=== PATIENT | female | born 1935 | race American Indian/Alaskan Native ===

== ENCOUNTER → 2016-09-20 | Outpatient (CLI) | payer MEDICARE, OTHER, BC | LOC: MW.CHOBGYN 08:00 | PROVIDERS: ATTEND Obstetrics & Gynecology | DX: N81.89 Other female genital prolapse (principal) | CPT/HCPCS: 99204 ==

== ENCOUNTER 2016-11-04 09:04 | Inpatient (IN) | payer MEDICARE, BC, OTHER ==
--- NOTE | 2016-11-04 09:18 | EDM.PDOC ---
ED HPI GENERAL MEDICAL PROBLEM - General Chief Complaint: General Stated Complaint: DIZZY Time Seen by Provider: 11/04/16 09:06 Source of Information: Reports: Patient History Limitations: Reports: No Limitations - History of Present Illness INITIAL COMMENTS - FREE TEXT/NARRATIVE: History of present illness: []Patient woke up this morning with dizziness described as spinning and then felt like she had the urge to go to the bathroom she is unusual in that she is usually constipated. She had a large bloody stool that turned the toilet water red. She has not had another episode since. She does feel weak and nauseous. Patient states she initially had some abdominal pain but that has resolved. She has heart disease is currently not taking any blood thinners besides baby aspirin a day. Review of systems: As per history of present illness and below otherwise all systems reviewed and negative. Past medical history: As per history of present illness and as reviewed below otherwise noncontributory. Surgical history: As per history of present illness and as reviewed below otherwise noncontributory. Social history: No reported history of drug or alcohol abuse. Family history: As per history of present illness and as reviewed below otherwise noncontributory. Physical exam: General: Well developed, well nourished in NAD HEENT: Atraumatic, normocephalic, pupils reactive, negative for conjunctival pallor or scleral icterus, mucous membranes moist, throat clear, neck supple, nontender, trachea midline. Lungs: Clear to auscultation, breath sounds equal bilaterally, chest nontender. Heart: S1S2, regular, negative for clicks, rubs, or JVD. Abdomen: Soft, nondistended, nontender. Negative for masses or hepatosplenomegaly. Negative for costovertebral tenderness. Pelvis: Stable nontender. Genitourinary: Deferred. Rectal: Gross maroon blood on fingertip without active bleeding Extremities: Atraumatic, negative for cords or calf pain. Neurovascular unremarkable. Neuro: Awake, alert, oriented. Cranial nerves II through XII unremarkable. Cerebellum unremarkable. Motor and sensory unremarkable throughout. Exam nonfocal. Diagnostics: []Lab work done, chest x-ray and CTA abdomen ordered Therapeutics: []IV hydration and Protonix given Impression: []GI bleed Plan: []Admit to Dr. Leiva, hospitalist and Dr. Solis from general surgery consult on this patient in the ED Definitive disposition and diagnosis as appropriate pending reevaluation and review of above. no pain Pain Score (Numeric/FACES): 0 - Related Data Allergies Allergy/AdvReac Type Severity Reaction Status Date / Time codeine Allergy Other Verified 11/04/16 09:11 penicillin V Allergy Other Verified 11/04/16 09:11 clonidine Allergy Other Uncoded 11/04/16 09:11 Home Meds: Home Meds Furosemide [Lasix] 40 mg PO DAILY 05/10/14 [History] Verapamil HCl [Verapamil ER] 180 mg PO DAILY 05/10/14 [History] traMADol HCl [Tramadol HCl] 1 - 2 tab PO Q4HR PRN 05/10/14 [History] Cyclobenzaprine [Flexeril] 5 mg PO Q8H PRN 02/01/16 [History] Isosorbide Mononitrate [Imdur] 60 mg PO DAILY #30 tab.er 02/01/16 [Rx] Lisinopril 20 mg PO DAILY 02/01/16 [History] Gabapentin [Neurontin] 100 mg PO DAILY 06/08/16 [History] Carvedilol 3.125 mg PO BID 11/04/16 [History] Docusate Sodium 100 mg PO BID 11/04/16 [History] Loraine-3 Fatty Acids [Fish Oil] 1,000 mg PO DAILY 11/04/16 [History] Pantoprazole [ProTONIX] 40 mg PO ACBREAKFAST 11/04/16 [History] oxyCODONE HCl [Oxycodone HCl] 20 mg PO BID 11/04/16 [History] Past Medical History - Past Health History Medical/Surgical History: Denies Medical/Surgical History HEENT History: Reports: Cataract, Impaired Vision Cardiovascular History: Reports: High Cholesterol, Hypertension Respiratory History: Reports: Asthma, Bronchitis, Recurrent, TB Gastrointestinal History: Reports: Cholelithiasis, GERD Genitourinary History: Reports: Chronic Renal Insuffiency Other Genitourinary History: "kidney problems" 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/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 History: Hysterectomy Musculoskeletal History: Reports: Fracture, Other (See Below) Other Musculoskeletal History: neck and lumbar fracture, right broken wrist Endocrine/Metabolic History: Reports: Other (See Below) Other Endocrine/Metabolic History: borderline diabetes, thyroidectomy Hematologic History: Reports: Blood Transfusion(s) Other Hematologic History: blood transfusion x 1 - Infectious Disease History Infectious Disease History: Reports: Chicken Pox - Past Surgical History HEENT Surgical History: Reports: Cataract Surgery Neurological Surgical History: Reports: Lumbar Spine Musculoskeletal Surgical History: Reports: Other (See Below) Social & Family History - Family History Family Medical History: Noncontributory - Tobacco Use Smoking Status *Q: Never Smoker Second Hand Smoke Exposure: No - Caffeine Use Caffeine Use: Reports: Coffee Caffeine Use Comment: 1cup/day - Alcohol Use Days Per Week of Alcohol Use: 0 - Recreational Drug Use Recreational Drug Use: No ED ROS GENERAL - Review of Systems Review Of Systems: See Below (See history of present illness) ED EXAM, GENERAL - Physical Exam Exam: See Below (See history of present illness) Course - Vital Signs Last Recorded V/S: Last Vital Signs Temp 36.3 C 11/04/16 09:11 Pulse 88 11/04/16 09:11 Resp 10 L 11/04/16 11:30 BP 98/54 L 11/04/16 11:30 Pulse Ox 94 L 11/04/16 11:30 - Orders/Labs/Meds Orders: Active Orders 24 hr Category Date Time Status Cardiac Monitoring [RC] . DIRECTED Care 11/04/16 09:14 Active EKG Documentation Completion [RC] STAT Care 11/04/16 09:14 Active Fecal Occult Blood Collection [RC] ASDIRECTED Care 11/04/16 09:57 Active Notify Provider Consults [RC] ASDIRECTED Care 11/04/16 12:32 Active Consult to Physician [CONS] Stat Cons 11/04/16 12:31 Active Abdomen Pelvis wo Cont [CT] Stat Exams 11/04/16 11:55 Taken Chest 1V Frontal [CR] Stat Exams 11/04/16 09:14 Taken Saline Lock Insert [OM.PC] Stat Oth 11/04/16 09:14 Ordered Labs: Laboratory Tests 11/04/16 11/04/16 11/04/16 Range/Units 09:10 09:20 09:20 WBC 9.42 (4.0-11.0) K/uL RBC 3.33 L (4.30-5.90) M/uL Hgb 9.8 L (12.0-16.0) g/dL Hct 29.5 L (36.0-46.0) % MCV 88.6 (80.0-98.0) fL MCH 29.4 (27.0-32.0) pg MCHC 33.2 (31.0-37.0) g/dL RDW Std Deviation 44.7 (28.0-62.0) fl RDW Coeff of Rad 14 (11.0-15.0) % Plt Count 290 (150-400) K/uL MPV 9.30 (7.40-12.00) fL Neut % (Auto) 76.2 (48.0-80.0) % Lymph % (Auto) 16.5 (16.0-40.0) % Brooks % (Auto) 5.8 (0.0-15.0) % Eos % (Auto) 1.0 (0.0-7.0) % Baso % (Auto) 0.5 (0.0-1.5) % Neut # (Auto) 7.2 H (1.4-5.7) K/uL Lymph # (Auto) 1.6 (0.6-2.4) K/uL Brooks # (Auto) 0.6 (0.0-0.8) K/uL Eos # (Auto) 0.1 (0.0-0.7) K/uL Baso # (Auto) 0.1 (0.0-0.1) K/uL Nucleated RBC % 0.0 /100WBC Nucleated RBCs # 0 K/uL Sodium 136 (136-146) mmol/L Potassium 4.5 (3.5-5.1) mmol/L Chloride 104 (98-110) mmol/L Carbon Dioxide 23 (21-31) mmol/L BUN 37 H (6.0-23.0) mg/dL Creatinine 1.6 H (0.6-1.5) mg/dL Est Cr Clr Drug Dosing 21.51 mL/min Estimated GFR (MDRD) 31.1 ml/min Glucose 145 H (60-110) mg/dL Calcium 8.4 L (8.8-10.8) mg/dL Total Bilirubin 0.4 (0.1-1.5) mg/dL AST 12 (5-40) IU/L ALT 8 (8-54) IU/L Alkaline Phosphatase 60 (40-150) Troponin I (0.0-0.29) NG/ML Total Protein 6.8 (6.0-8.0) g/dL Albumin 3.3 L (3.4-4.8) g/dL Globulin 3.5 (2.0-3.5) g/dL Albumin/Globulin Ratio 0.9 L (1.3-2.8) Blood Type A POSITIVE Antibody Screen NEGATIVE 11/04/16 Range/Units 09:20 WBC (4.0-11.0) K/uL RBC (4.30-5.90) M/uL Hgb (12.0-16.0) g/dL Hct (36.0-46.0) % MCV (80.0-98.0) fL MCH (27.0-32.0) pg MCHC (31.0-37.0) g/dL RDW Std Deviation (28.0-62.0) fl RDW Coeff of Rad (11.0-15.0) % Plt Count (150-400) K/uL MPV (7.40-12.00) fL Neut % (Auto) (48.0-80.0) % Lymph % (Auto) (16.0-40.0) % Brooks % (Auto) (0.0-15.0) % Eos % (Auto) (0.0-7.0) % Baso % (Auto) (0.0-1.5) % Neut # (Auto) (1.4-5.7) K/uL Lymph # (Auto) (0.6-2.4) K/uL Brooks # (Auto) (0.0-0.8) K/uL Eos # (Auto) (0.0-0.7) K/uL Baso # (Auto) (0.0-0.1) K/uL Nucleated RBC % /100WBC Nucleated RBCs # K/uL Sodium (136-146) mmol/L Potassium (3.5-5.1) mmol/L Chloride (98-110) mmol/L Carbon Dioxide (21-31) mmol/L BUN (6.0-23.0) mg/dL Creatinine (0.6-1.5) mg/dL Est Cr Clr Drug Dosing mL/min Estimated GFR (MDRD) ml/min Glucose (60-110) mg/dL Calcium (8.8-10.8) mg/dL Total Bilirubin (0.1-1.5) mg/dL AST (5-40) IU/L ALT (8-54) IU/L Alkaline Phosphatase (40-150) Troponin I < 0.10 (0.0-0.29) NG/ML Total Protein (6.0-8.0) g/dL Albumin (3.4-4.8) g/dL Globulin (2.0-3.5) g/dL Albumin/Globulin Ratio (1.3-2.8) Blood Type Antibody Screen Meds: Medications Discontinued Medications Generic Name Dose Route Start Last Admin Trade Name Freq PRN Reason Stop Dose Admin Sodium Chloride 1,000 mls @ 999 mls/hr 11/04/16 10:22 11/04/16 10:43 Normal Saline IV 11/04/16 11:22 999 mls/hr .Bolus ONE Administration Pantoprazole Sodium 80 mg 11/04/16 10:58 11/04/16 11:31 Protonix Iv IVPUSH 11/04/16 10:59 80 mg .BOLUS ONE Administration Departure - Departure Time of Disposition: 12:51 Disposition: Refer to Observation Condition: good Clinical Impression: GI bleed Qualifiers: GI bleed type/associated pathology: unspecified gastrointestinal hemorrhage type Qualified Code(s): K92.2 - Gastrointestinal hemorrhage, unspecified - Discharge Information - My Orders Last 24 Hours: My Active Orders 11/04/16 09:14 Cardiac Monitoring [RC] . DIRECTED EKG Documentation Completion [RC] STAT Chest 1V Frontal [CR] Stat Saline Lock Insert [OM.PC] Stat 11/04/16 09:57 Fecal Occult Blood Collection [RC] ASDIRECTED 11/04/16 11:55 Abdomen Pelvis wo Cont [CT] Stat 11/04/16 12:31 Consult to Physician [CONS] Stat 11/04/16 12:32 Notify Provider Consults [RC] ASDIRECTED - Assessment/Plan Last 24 Hours: My Active Orders 11/04/16 09:14 Cardiac Monitoring [RC] . DIRECTED EKG Documentation Completion [RC] STAT Chest 1V Frontal [CR] Stat Saline Lock Insert [OM.PC] Stat 11/04/16 09:57 Fecal Occult Blood Collection [RC] ASDIRECTED 11/04/16 11:55 Abdomen Pelvis wo Cont [CT] Stat 11/04/16 12:31 Consult to Physician [CONS] Stat 11/04/16 12:32 Notify Provider Consults [RC] ASDIRECTED
[2016-11-04] MEDS ORDERED: Sodium Chloride 0.9% 1,000 ML IV ONE (10:22)
[2016-11-04] MEDS ORDERED: Pantoprazole 40 MG Vial IVPUSH ONE (10:58)
--- NOTE | 2016-11-04 13:05 | PCM.CONS ---
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 She had a black tarry foul smelling stool this morning that "filled the toilet with blood". It has never happened before. This was associated with nausea, weakness, and feeling dizzy. She has not had another BM since them. She complains of long standing heartburn that she treats with dietary changes and tums. She normally takes stool softners because she is constipated. She does not know her family history but remebers that her father of some type of cancer. She cannot remember if she has ever had a colonoscopy or EGD. no pain Pain Score (Numeric/FACES): 0 - Related Data Allergies/Adverse Reactions: Allergies Allergy/AdvReac Type Severity Reaction Status Date / Time codeine Allergy Other Verified 11/04/16 09:11 penicillin V Allergy Other Verified 11/04/16 09:11 clonidine Allergy Other Uncoded 11/04/16 09:11 Home Medications: Home Meds Furosemide [Lasix] 40 mg PO DAILY 05/10/14 [History] Verapamil HCl [Verapamil ER] 180 mg PO DAILY 05/10/14 [History] traMADol HCl [Tramadol HCl] 1 - 2 tab PO Q4HR PRN 05/10/14 [History] Cyclobenzaprine [Flexeril] 5 mg PO Q8H PRN 02/01/16 [History] Isosorbide Mononitrate [Imdur] 60 mg PO DAILY #30 tab.er 02/01/16 [Rx] Lisinopril 20 mg PO DAILY 02/01/16 [History] Gabapentin [Neurontin] 100 mg PO DAILY 06/08/16 [History] Carvedilol 3.125 mg PO BID 11/04/16 [History] Docusate Sodium 100 mg PO BID 11/04/16 [History] Sinclair-3 Fatty Acids [Fish Oil] 1,000 mg PO DAILY 11/04/16 [History] Pantoprazole [ProTONIX] 40 mg PO ACBREAKFAST 11/04/16 [History] oxyCODONE HCl [Oxycodone HCl] 20 mg PO BID 11/04/16 [History] Past Medical History - Past Health History Medical/Surgical History: Denies Medical/Surgical History HEENT History: Reports: Cataract, Impaired Vision Cardiovascular History: Reports: High Cholesterol, Hypertension Respiratory History: Reports: Asthma, Bronchitis, Recurrent, TB Gastrointestinal History: Reports: Cholelithiasis, GERD Genitourinary History: Reports: Chronic Renal Insuffiency Other Genitourinary History: "kidney problems" 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 OB/BYN History: Hysterectomy Musculoskeletal History: Reports: Fracture, Other (See Below) Other Musculoskeletal History: neck and lumbar fracture, right broken wrist Neurological History: Reports: Headaches, Chronic Psychiatric History: Reports: None Endocrine/Metabolic History: Reports: Other (See Below) Other Endocrine/Metabolic History: borderline diabetes, thyroidectomy Hematologic History: Reports: Blood Transfusion(s) Other Hematologic History: blood transfusion x 1 Oncologic (Cancer) History: Reports: None - Infectious Disease History Infectious Disease History: Reports: Chicken Pox - Past Surgical History HEENT Surgical History: Reports: Cataract Surgery GI Surgical History: Reports: Cholecystectomy Neurological Surgical History: Reports: Lumbar Spine Musculoskeletal Surgical History: Reports: Other (See Below) Social & Family History - Family History Family Medical History: Noncontributory - Tobacco Use Smoking Status *Q: Never Smoker Second Hand Smoke Exposure: No - Caffeine Use Caffeine Use: Reports: Coffee Caffeine Use Comment: 1cup/day - Alcohol Use Days Per Week of Alcohol Use: 0 - Recreational Drug Use Recreational Drug Use: No H&P Review of Systems - Review of Systems: Review Of Systems: See Below General: Reports: Malaise. Denies: Fever, Chills, Weight Loss, Weight Gain HEENT: Reports: No Symptoms Pulmonary: Reports: No Symptoms Cardiovascular: Reports: No Symptoms Gastrointestinal: Reports: Black Stool, Bloody Stool, Melena Genitourinary: Reports: No Symptoms Musculoskeletal: Reports: Back Pain Skin: Reports: No Symptoms Psychiatric: Reports: No Symptoms Neurological: Reports: No Symptoms Exam - Exam Exam: See Below - Vital Signs Vital Signs: Last Vital Signs Temp 36.3 C 11/04/16 09:11 Pulse 63 11/04/16 12:45 Resp 14 11/04/16 12:45 BP 102/51 L 11/04/16 12:45 Pulse Ox 96 11/04/16 12:45 Weight: 60.328 kg - Exam General: Alert, Oriented HEENT: Conjunctiva Clear, Nares Patent, Normal Nasal Septum, Posterior Pharynx Clear, Pupils Equal, Pupils Reactive Neck: Supple Lungs: Clear to Auscultation, Normal Respiratory Effort Cardiovascular: Regular Rate, Regular Rhythm Abdomen: Normal Bowel Sounds, Soft. No: Distention, Guarding, Rigidity, Rebound , Tenderness Rectal (Female) Exam: Normal Rectal Tone, Black Stool, Heme + Stool Back Exam: Normal Inspection Extremities: Normal Inspection, Normal Pulses Skin: Warm, Dry, Intact Neuro Extensive - Mental Status: Alert, Oriented x3, Normal Mood/Affect, Normal Cognition Psychiatric: Alert, Normal Affect, Normal Mood - Patient Data Result Diagrams: 11/04/16 09:20 11/04/16 09:20 Consult PN Assessment/Plan Procedures: Procedures APPLY FOREARM SPLINT (05/14/14) ASSAY OF LACTIC ACID (06/08/16) ASSAY OF LIPASE (07/14/16) ASSAY OF NATRIURETIC PEPTIDE (06/08/16) ASSAY OF TROPONIN QUANT (07/14/16) BLOOD CULTURE FOR BACTERIA (06/08/16) CHEST X-RAY 1 VIEW FRONTAL (07/14/16) CHEST X-RAY 2VW FRONTAL&LATL (06/08/16) COMPLETE CBC W/AUTO DIFF WBC (07/14/16) COMPREHEN METABOLIC PANEL (07/14/16) CREATINE MB FRACTION (07/14/16) CT ABD & PELVIS W/O CONTRAST (07/14/16) CT CHEST SPINE W/O DYE (06/08/16) CT LUMBAR SPINE W/O DYE (06/08/16) DESTROY L/S FACET JNT ADDL (12/10/14) DESTROY LUMB/SAC FACET JNT (12/10/14) ELECTROCARDIOGRAM TRACING (07/14/16) EMERGENCY DEPT VISIT (07/14/16) EMERGENCY DEPT VISIT (03/18/16) EMERGENCY DEPT VISIT (02/01/16) EMERGENCY DEPT VISIT (05/10/14) EMERGENCY DEPT VISIT (05/10/14) GLYCOSYLATED HEMOGLOBIN TEST (02/01/16) HYDRATE IV INFUSION ADD-ON (06/08/16) INJ PARAVERT F JNT L/S 1 LEV (08/04/14) INJ PARAVERT F JNT L/S 2 LEV (08/04/14) INJECT SPINE LUMBAR/SACRAL (05/06/15) LIPID PANEL (02/01/16) METABOLIC PANEL TOTAL CA (02/01/16) MRI CHEST SPINE W/O DYE (02/18/15) MRI LUMBAR SPINE W/O DYE (02/18/15) N BLOCK OTHER PERIPHERAL (08/04/14) OFFICE/OUTPATIENT VISIT EST (09/15/15) OFFICE/OUTPATIENT VISIT EST (05/31/15) OFFICE/OUTPATIENT VISIT NEW (02/08/16) PROTHROMBIN TIME (07/14/16) ROUTINE VENIPUNCTURE (06/08/16) THER/PROPH/DIAG INJ IV PUSH (06/08/16) THER/PROPH/DIAG IV INF INIT (06/08/16) TISSUE EXAM BY PATHOLOGIST (05/18/16) TTE W/DOPPLER COMPLETE (02/25/16) URINALYSIS AUTO W/SCOPE (07/14/16) URINE CULTURE/COLONY COUNT (07/14/16) X-RAY EXAM NECK SPINE 2-3 VW (09/01/15) X-RAY EXAM OF WRIST (08/27/14) X-RAY EXAM OF WRIST (06/16/14) X-RAY EXAM OF WRIST (05/19/14) X-RAY EXAM OF WRIST (05/10/14) X-RAY EXAM THORAC SPINE 2VWS (09/01/15) (1) GI bleed SNOMED Code(s): 70665205 Code(s): K92.2 - GASTROINTESTINAL HEMORRHAGE, UNSPECIFIED Current Visit: Yes Qualifiers: GI bleed type/associated pathology: unspecified gastrointestinal hemorrhage type Qualified Code(s): K92.2 - Gastrointestinal hemorrhage, unspecified Problem List Initiated/Reviewed/Updated: Yes Plan: Patient has frankly melanic stool. The source of her GI bleed unclear at this point in time. Given her history of "severe heartburn and epigastric pain", it may be from an upper GI source (gastritis, ulcer). However, bleeding from a lower GI source cannot be ruled out either. Her hemoglobin is stable compared to her last hgb in May of this year. Given her health history and the frankly melanic stool I would watch her overnight to rule out any further bleeding. She should be made NPO, started on maintenance IVF and given IV protonix. She is not having any nausea or vomiting at this point in time so I would not place an NG. Her hgb can be checked every 12 hours as long as she is not having active melanotic diarrhea. If she develops signs of active bleeding she should have her hgb checked more regularly and I would scope her tomorrow morning. I will continue to follow the patient in house. If she has no further episodes of bleeding I will hold off on performing an inpatient scope. Please call with any questions or concerns.
[2016-11-04] MEDS: Sodium Chloride 0.9% 1,000 ML IV SCH ×2 (13:10→23:29)
--- NOTE | 2016-11-04 13:50 | PCM.HP ---
H&P History of Present Illness - History of Present Illness Initial Comments - Free Text/Narative: 81 yo female with pmh of hypertenison, chornic back pain, borderline DM, and chronic kidney disease who presents with bloody stools. When she woke up this morning she felt dizzy. She had sudden urge to go to the bathroom and when she did she had dark tarry stools with red blood in stool. She deneis any nausea or vomiting. She reports epigastric abddominal pain. She has been on protonix fur suspected ulcers/dyspepsia. Sh did take her antihypertensive medications this morning. In the ED she was noted to have blood pressure in the 90s systolic. After one liter bolus her blood pressure increased to 110 systolic. no pain Pain Score (Numeric/FACES): 0 - Related Data Allergies/Adverse Reactions: Allergies Allergy/AdvReac Type Severity Reaction Status Date / Time codeine Allergy Other Verified 11/04/16 09:11 penicillin V Allergy Other Verified 11/04/16 09:11 clonidine Allergy Other Uncoded 11/04/16 09:11 Home Medications: Home Meds Verapamil HCl [Verapamil ER] 180 mg PO DAILY 05/10/14 [History] traMADol HCl [Tramadol HCl] 1 - 2 tab PO Q4HR PRN 05/10/14 [History] Cyclobenzaprine [Flexeril] 5 mg PO Q8H PRN 02/01/16 [History] Isosorbide Mononitrate [Imdur] 60 mg PO DAILY #30 tab.er 02/01/16 [Rx] Lisinopril 20 mg PO DAILY 02/01/16 [History] Gabapentin [Neurontin] 100 mg PO TID 06/08/16 [History] Carvedilol 3.125 mg PO BID 11/04/16 [History] Docusate Sodium 100 mg PO BID 11/04/16 [History] Furosemide [Lasix] 20 mg PO DAILY 11/04/16 [History] [place]-3 Fatty Acids [Fish Oil] 1,000 mg PO DAILY 11/04/16 [History] Pantoprazole [ProTONIX] 40 mg PO ACBREAKFAST 11/04/16 [History] oxyCODONE HCl [Oxycodone HCl] 20 mg PO BID 11/04/16 [History] Past Medical History - Past Health History Medical/Surgical History: Denies Medical/Surgical History HEENT History: Reports: Cataract, Impaired Vision Cardiovascular History: Reports: High Cholesterol, Hypertension Respiratory History: Reports: Asthma, Bronchitis, Recurrent, TB Gastrointestinal History: Reports: Cholelithiasis, GERD Genitourinary History: Reports: Chronic Renal Insuffiency Other Genitourinary History: "kidney problems" [employer] 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: Other OB/BYN History: Hysterectomy Musculoskeletal History: Reports: Fracture, Other (See Below) Other Musculoskeletal History: neck and lumbar fracture, right broken wrist Neurological History: Reports: Headaches, Chronic Psychiatric History: Reports: None Endocrine/Metabolic History: Reports: Other (See Below) Other Endocrine/Metabolic History: borderline diabetes, thyroidectomy Hematologic History: Reports: Blood Transfusion(s) Other Hematologic History: blood transfusion x 1 Oncologic (Cancer) History: Reports: None - Infectious Disease History Infectious Disease History: Reports: Chicken Pox - Past Surgical History HEENT Surgical History: Reports: Cataract Surgery GI Surgical History: Reports: Cholecystectomy Neurological Surgical History: Reports: Lumbar Spine Musculoskeletal Surgical History: Reports: Other (See Below) Social & Family History - Family History Family Medical History: Noncontributory HEENT: Reports: Impaired Vision Musculoskeletal: Reports: Arthritis Oncologic: Reports: Other (See Below) Other Oncologic Family History: stomach - Tobacco Use Smoking Status *Q: Never Smoker Second Hand Smoke Exposure: No - Caffeine Use Caffeine Use: Reports: Coffee Caffeine Use Comment: 1cup/day - Alcohol Use Days Per Week of Alcohol Use: 0 - Recreational Drug Use Recreational Drug Use: No H&P Review of Systems - Review of Systems: Review Of Systems: See Below General: Reports: No Symptoms HEENT: Reports: No Symptoms Pulmonary: Reports: No Symptoms Cardiovascular: Reports: No Symptoms Gastrointestinal: Reports: Abdominal Pain, Melena Genitourinary: Reports: No Symptoms Musculoskeletal: Reports: No Symptoms Skin: Reports: No Symptoms Psychiatric: Reports: No Symptoms Neurological: Reports: No Symptoms Hematologic/Lymphatic: Reports: No Symptoms Immunologic: Reports: No Symptoms Exam - Exam Exam: See Below - Vital Signs Vital Signs: Last Vital Signs Temp 36.3 C 11/04/16 09:11 Pulse 63 11/04/16 12:45 Resp 14 11/04/16 12:45 BP 102/51 L 11/04/16 12:45 Pulse Ox 96 11/04/16 12:45 Weight: 60.328 kg - Exam General: Alert, Oriented, 4 Lungs: Clear to Auscultation, Normal Respiratory Effort Cardiovascular: Regular Rate, Regular Rhythm Abdomen: Normal Bowel Sounds, Soft. No: Distention, Tenderness Extremities: 3, Normal Inspection, 10 Skin: Warm, Dry, Intact Neurological: No: Focal Deficit - Patient Data Result Diagrams: 11/05/16 02:35 11/05/16 02:35 *Q Meaningful Use (ADM) - VTE *Q VTE Criteria *Q: - Stroke *Q Stroke Criteria *Q: - AMI *Q AMI Criteria *Q: Problem List Initiated/Reviewed/Updated: Yes Orders Last 24hrs: Active Orders 24 hr Category Date Time Status Antiembolic Devices [RC] PER UNIT ROUTINE Care 11/04/16 13:32 Active Oxygen Therapy [RC] PRN Care 11/04/16 13:32 Active VTE/DVT Education [RC] PER UNIT ROUTINE Care 11/04/16 13:32 Active Vital Signs [RC] Q4H Care 11/04/16 13:32 Active BASIC METABOLIC PANEL,BMP [CHEM] AM Lab 11/05/16 05:11 Ordered CBC W/O DIFF,HEMOGRAM [HEME] Q8H Lab 11/04/16 17:00 Ordered CBC W/O DIFF,HEMOGRAM [HEME] Q8H Lab 11/05/16 01:00 Ordered CBC W/O DIFF,HEMOGRAM [HEME] Q8H Lab 11/05/16 09:00 Ordered Insulin Aspart [NovoLOG] Med 11/04/16 13:15 Active See Protocol SUBCUT Q6H Pantoprazole [ProTONIX IV] 80 mg Med 11/04/16 13:15 Active Sodium Chloride 0.9% [Normal Saline] 100 ml IV Q10H Sodium Chloride 0.9% [Normal Saline] 1,000 ml Med 11/04/16 13:15 Active IV ASDIRECTED Sequential Compression Device [OM.PC] Per Unit Routine Oth 11/04/16 13:32 Ordered Medication Orders Pantoprazole Sodium 80 mg/ (Sodium Chloride) 100 mls @ 10 mls/hr IV Q10H YANNI Sodium Chloride (Normal Saline) 1,000 mls @ 125 mls/hr IV ASDIRECTED YANNI Insulin Aspart (Novolog) 0 unit SUBCUT Q6H YANNI PRN Reason: Protocol Assessment/Plan Comment:: 81 yo female admitted with GI bleed. I suspect upper GI bleed. We will continue IV fluid resuscitation, type and screen and trend Hgb. We will place on protonix drip and make NPO. Dr. Neal is consulted and appreciate her help.
[2016-11-04] MEDS: Pantoprazole 80 MG in Sodium Chloride 0.9% 100 ML IV SCH ×2 (14:10→23:26)
[2016-11-04] MEDS: Insulin Aspart 100 Units/ML 3 ML Pen SUBCUT SCH ×2 (14:24→19:15)
--- NOTE | 2016-11-04 18:28 | PCM.PREANE ---
Preanesthetic Assessment - Anesthesia/Transfusion/Family Hx Anesthesia History: Prior Anesthesia Without Reaction Type of Anesthesia Reaction: Other (see below) (Denies any problems) Family History of Anesthesia Reaction: No Transfusion History: Prior Transfusion Without Reaction - Review of Systems General: Weakness, Other (Chronic neck,back pain) Pulmonary: No Symptoms, Shortness of Breath (States a little shortness of breath today) Cardiovascular: No Symptoms (Denies at this time), Other (States "walks around [employer] and the house" but limited due to back pain) Gastrointestinal: Other (Denies reflux except with spicy food or too much food) Neurological: No Symptoms Other: Reports: Throat Pain - Physical Assessment NPO Status Date: 11/04/16 O2 Sat by Pulse Oximetry: 93 Respiratory Rate: 18 Vital Signs: Last Vital Signs Temp 37.1 C 11/04/16 16:00 Pulse 72 11/04/16 16:00 Resp 18 11/04/16 16:00 BP 113/57 L 11/04/16 16:00 Pulse Ox 93 L 11/04/16 12:50 Height: 1.55 m Weight: 60.328 kg ASA Class: 3 Mental Status: Alert & Oriented x3 Airway Class: Mallampati = 2 Thyro-Mental Finger Breadths: 3 Mouth Opening Finger Breadths: 3 ROM/Head Extension: Full Lungs: Clear to auscultation Cardiovascular: Regular Rate - Lab Values: Laboratory Last Values WBC 9.47 K/uL (4.0-11.0) 11/04/16 16:53 RBC 2.84 M/uL (4.30-5.90) L 11/04/16 16:53 Hgb 8.2 g/dL (12.0-16.0) L 11/04/16 16:53 Hct 25.0 % (36.0-46.0) L 11/04/16 16:53 MCV 88.0 fL (80.0-98.0) 11/04/16 16:53 MCH 28.9 pg (27.0-32.0) 11/04/16 16:53 MCHC 32.8 g/dL (31.0-37.0) 11/04/16 16:53 RDW Std Deviation 45.3 fl (28.0-62.0) 11/04/16 16:53 RDW Coeff of Rad 14 % (11.0-15.0) 11/04/16 16:53 Plt Count 241 K/uL (150-400) 11/04/16 16:53 MPV 9.10 fL (7.40-12.00) 11/04/16 16:53 Neut % (Auto) 76.2 % (48.0-80.0) 11/04/16 09:20 Lymph % (Auto) 16.5 % (16.0-40.0) 11/04/16 09:20 [place] % (Auto) 5.8 % (0.0-15.0) 11/04/16 09:20 Eos % (Auto) 1.0 % (0.0-7.0) 11/04/16 09:20 Baso % (Auto) 0.5 % (0.0-1.5) 11/04/16 09:20 Neut # (Auto) 7.2 K/uL (1.4-5.7) H 11/04/16 09:20 Lymph # (Auto) 1.6 K/uL (0.6-2.4) 11/04/16 09:20 [place] # (Auto) 0.6 K/uL (0.0-0.8) 11/04/16 09:20 Eos # (Auto) 0.1 K/uL (0.0-0.7) 11/04/16 09:20 Baso # (Auto) 0.1 K/uL (0.0-0.1) 11/04/16 09:20 Nucleated RBC % 0.0 /100WBC 11/04/16 16:53 Nucleated RBCs # 0 K/uL 11/04/16 16:53 INR 1.05 (0.86-1.11) 11/04/16 14:02 Sodium 136 mmol/L (136-146) 11/04/16 09:20 Potassium 4.5 mmol/L (3.5-5.1) 11/04/16 09:20 Chloride 104 mmol/L (98-110) 11/04/16 09:20 Carbon Dioxide 23 mmol/L (21-31) 11/04/16 09:20 BUN 37 mg/dL (6.0-23.0) H 11/04/16 09:20 Creatinine 1.6 mg/dL (0.6-1.5) H 11/04/16 09:20 Est Cr Clr Drug Dosing 21.51 mL/min 11/04/16 09:20 Estimated GFR (MDRD) 31.1 ml/min 11/04/16 09:20 Glucose 145 mg/dL (60-110) H 11/04/16 09:20 POC Glucose 88 mg/dL (60-110) 11/04/16 14:23 Calcium 8.4 mg/dL (8.8-10.8) L 11/04/16 09:20 Total Bilirubin 0.4 mg/dL (0.1-1.5) 11/04/16 09:20 AST 12 IU/L (5-40) 11/04/16 09:20 ALT 8 IU/L (8-54) 11/04/16 09:20 Alkaline Phosphatase 60 (40-150) 11/04/16 09:20 Troponin I < 0.10 NG/ML (0.0-0.29) 11/04/16 09:20 Total Protein 6.8 g/dL (6.0-8.0) 11/04/16 09:20 Albumin 3.3 g/dL (3.4-4.8) L 11/04/16 09:20 Globulin 3.5 g/dL (2.0-3.5) 11/04/16 09:20 Albumin/Globulin Ratio 0.9 (1.3-2.8) L 11/04/16 09:20 Blood Type A POSITIVE 11/04/16 09:10 Antibody Screen NEGATIVE 11/04/16 09:10 Crossmatch See Detail 11/04/16 09:10 - Allergies Allergies/Adverse Reactions: Allergies Allergy/AdvReac Type Severity Reaction Status Date / Time codeine Allergy Other Verified 11/04/16 09:11 penicillin V Allergy Other Verified 11/04/16 09:11 clonidine Allergy Other Uncoded 11/04/16 09:11 - Acknowledgements Anesthesia Type Planned: MAC Pt an Appropriate Candidate for the Planned Anesthesia: Yes Alternatives and Risks of Anesthesia Discussed w Pt/Guardian: Yes Pt/Guardian Understands and Agrees with Anesthesia Plan: Yes PreAnesthesia Questionnaire - Past Health History Medical/Surgical History: Denies Medical/Surgical History HEENT History: Reports: Cataract, Impaired Vision Cardiovascular History: Reports: High Cholesterol, Hypertension Respiratory History: Reports: Asthma, Bronchitis, Recurrent, TB Gastrointestinal History: Reports: Cholelithiasis, GERD Genitourinary History: Reports: Chronic Renal Insuffiency Other Genitourinary History: "kidney problems" [employer] 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: Other OB/BYN History: Hysterectomy Musculoskeletal History: Reports: Fracture, Other (See Below) Other Musculoskeletal History: neck and lumbar fracture, right broken wrist Neurological History: Reports: Headaches, Chronic Psychiatric History: Reports: None Endocrine/Metabolic History: Reports: Other (See Below) Other Endocrine/Metabolic History: borderline diabetes, thyroidectomy Hematologic History: Reports: Blood Transfusion(s) Other Hematologic History: blood transfusion x 1 Oncologic (Cancer) History: Reports: None - Infectious Disease History Infectious Disease History: Reports: Chicken Pox - Past Surgical History HEENT Surgical History: Reports: Cataract Surgery GI Surgical History: Reports: Cholecystectomy Neurological Surgical History: Reports: Lumbar Spine Musculoskeletal Surgical History: Reports: Other (See Below) - SUBSTANCE USE Smoking Status *Q: Never Smoker Tobacco Use Within Last Twelve Months: No Second Hand Smoke Exposure: No Days Per Week of Alcohol Use: 0 Recreational Drug Use History: No - HOME MEDS Home Medications: Home Meds Verapamil HCl [Verapamil ER] 180 mg PO DAILY 05/10/14 [History] traMADol HCl [Tramadol HCl] 1 - 2 tab PO Q4HR PRN 05/10/14 [History] Cyclobenzaprine [Flexeril] 5 mg PO Q8H PRN 02/01/16 [History] Isosorbide Mononitrate [Imdur] 60 mg PO DAILY #30 tab.er 02/01/16 [Rx] Lisinopril 20 mg PO DAILY 02/01/16 [History] Gabapentin [Neurontin] 100 mg PO TID 06/08/16 [History] Carvedilol 3.125 mg PO BID 11/04/16 [History] Docusate Sodium 100 mg PO BID 11/04/16 [History] Furosemide [Lasix] 20 mg PO DAILY 11/04/16 [History] [place]-3 Fatty Acids [Fish Oil] 1,000 mg PO DAILY 11/04/16 [History] Pantoprazole [ProTONIX] 40 mg PO ACBREAKFAST 11/04/16 [History] oxyCODONE HCl [Oxycodone HCl] 20 mg PO BID 11/04/16 [History] - CURRENT (IN HOUSE) MEDS Current Meds: Current Medications Pantoprazole Sodium 80 mg/ (Sodium Chloride) 100 mls @ 10 mls/hr IV Q10H [facility] Last Admin: 11/04/16 14:10 Dose: 10 mls/hr Sodium Chloride (Normal Saline) 1,000 mls @ 125 mls/hr IV ASDIRECTED [facility] Last Admin: 11/04/16 13:10 Dose: 125 mls/hr Insulin Aspart (Novolog) 0 unit SUBCUT Q6H [facility] PRN Reason: Protocol Last Admin: 11/04/16 14:24 Dose: Not Given Discontinued Medications Sodium Chloride (Normal Saline) 1,000 mls @ 999 mls/hr IV .Bolus ONE Stop: 11/04/16 11:22 Last Admin: 11/04/16 10:43 Dose: 999 mls/hr Pantoprazole Sodium (Protonix Iv) 80 mg IVPUSH .BOLUS ONE Stop: 11/04/16 10:59 Last Admin: 11/04/16 11:31 Dose: 80 mg
[2016-11-04] MEDS: Carvedilol 3.125 MG Tab PO SCH (20:40)
[2016-11-04] MEDS: Gabapentin 100 MG Cap PO SCH (23:06)
[2016-11-04] MEDS: traMADol 50 MG Tab PO PRN (23:06)
[2016-11-05] MEDS: Insulin Aspart 100 Units/ML 3 ML Pen SUBCUT SCH ×4 (00:52→21:10)
[2016-11-05] MEDS: Gabapentin 100 MG Cap PO SCH ×3 (06:00→21:11)
--- NOTE | 2016-11-05 08:40 | PCM.SURGPN ---
- General Info Date of Service: 11/05/16 Functional Status: Reports: ambulating, other (Patient c/o leg pain from her chronic back issues. This is normally controlled with her medications that she has been unable to take. She is hypertensive this am. She had 2-3 more melanic stools yesterday and recieved blood. She denies feeling dizzy or SOB. ) - Review of Systems General: Reports: No Symptoms HEENT: Reports: no symptoms Pulmonary: Reports: no symptoms Cardiovascular: Reports: No Symptoms Gastrointestinal: Reports: Melena, Other (Feels like her intestines are "rumbling" ) Musculoskeletal: Reports: back pain, leg pain Neurological: Reports: No Symptoms - Patient Data Vitals - most recent: Last Vital Signs Temp 37.0 C 11/05/16 07:55 Pulse 82 11/05/16 07:55 Resp 20 11/05/16 07:55 BP 158/98 H 11/05/16 07:55 Pulse Ox 94 L 11/05/16 07:55 Weight - most recent: 58.1 kg I&O - last 24 hours: Intake & Output 11/04/16 11/05/16 11/05/16 22:59 06:59 14:59 Intake Total 708 2178 Output Total 800 2300 Balance -92 -122 Lab Results last 24 hrs: Laboratory Results - last 24 hr 11/04/16 11/04/16 11/04/16 Range/Units 14:02 14:23 16:53 WBC 9.47 (4.0-11.0) K/uL RBC 2.84 L (4.30-5.90) M/uL Hgb 8.2 L (12.0-16.0) g/dL Hct 25.0 L (36.0-46.0) % MCV 88.0 (80.0-98.0) fL MCH 28.9 (27.0-32.0) pg MCHC 32.8 (31.0-37.0) g/dL RDW Std Deviation 45.3 (28.0-62.0) fl RDW Coeff of Rad 14 (11.0-15.0) % Plt Count 241 (150-400) K/uL MPV 9.10 (7.40-12.00) fL Neut % (Auto) (48.0-80.0) % Lymph % (Auto) (16.0-40.0) % [place] % (Auto) (0.0-15.0) % Eos % (Auto) (0.0-7.0) % Baso % (Auto) (0.0-1.5) % Neut # (Auto) (1.4-5.7) K/uL Lymph # (Auto) (0.6-2.4) K/uL [place] # (Auto) (0.0-0.8) K/uL Eos # (Auto) (0.0-0.7) K/uL Baso # (Auto) (0.0-0.1) K/uL Nucleated RBC % 0.0 /100WBC Nucleated RBCs # 0 K/uL INR 1.05 (0.86-1.11) Sodium (136-146) mmol/L Potassium (3.5-5.1) mmol/L Chloride (98-110) mmol/L Carbon Dioxide (21-31) mmol/L BUN (6.0-23.0) mg/dL Creatinine (0.6-1.5) mg/dL Est Cr Clr Drug Dosing mL/min Estimated GFR (MDRD) ml/min Glucose (60-110) mg/dL POC Glucose 88 (60-110) mg/dL Calcium (8.8-10.8) mg/dL Troponin I (0.0-0.29) NG/ML 11/04/16 11/04/16 11/05/16 Range/Units 19:08 20:35 00:17 WBC (4.0-11.0) K/uL RBC (4.30-5.90) M/uL Hgb (12.0-16.0) g/dL Hct (36.0-46.0) % MCV (80.0-98.0) fL MCH (27.0-32.0) pg MCHC (31.0-37.0) g/dL RDW Std Deviation (28.0-62.0) fl RDW Coeff of Rad (11.0-15.0) % Plt Count (150-400) K/uL MPV (7.40-12.00) fL Neut % (Auto) (48.0-80.0) % Lymph % (Auto) (16.0-40.0) % [place] % (Auto) (0.0-15.0) % Eos % (Auto) (0.0-7.0) % Baso % (Auto) (0.0-1.5) % Neut # (Auto) (1.4-5.7) K/uL Lymph # (Auto) (0.6-2.4) K/uL [place] # (Auto) (0.0-0.8) K/uL Eos # (Auto) (0.0-0.7) K/uL Baso # (Auto) (0.0-0.1) K/uL Nucleated RBC % /100WBC Nucleated RBCs # K/uL INR (0.86-1.11) Sodium (136-146) mmol/L Potassium (3.5-5.1) mmol/L Chloride (98-110) mmol/L Carbon Dioxide (21-31) mmol/L BUN (6.0-23.0) mg/dL Creatinine (0.6-1.5) mg/dL Est Cr Clr Drug Dosing mL/min Estimated GFR (MDRD) ml/min Glucose (60-110) mg/dL POC Glucose 81 87 (60-110) mg/dL Calcium (8.8-10.8) mg/dL Troponin I < 0.10 (0.0-0.29) NG/ML 11/05/16 11/05/16 11/05/16 Range/Units 02:35 02:35 02:35 WBC 8.90 (4.0-11.0) K/uL RBC 3.97 L (4.30-5.90) M/uL Hgb 11.8 L (12.0-16.0) g/dL Hct 35.1 L (36.0-46.0) % MCV 88.4 (80.0-98.0) fL MCH 29.7 (27.0-32.0) pg MCHC 33.6 (31.0-37.0) g/dL RDW Std Deviation 44.2 (28.0-62.0) fl RDW Coeff of Rad 14 (11.0-15.0) % Plt Count 229 (150-400) K/uL MPV 9.50 (7.40-12.00) fL Neut % (Auto) 67.3 (48.0-80.0) % Lymph % (Auto) 23.8 (16.0-40.0) % [place] % (Auto) 7.5 (0.0-15.0) % Eos % (Auto) 0.8 (0.0-7.0) % Baso % (Auto) 0.6 (0.0-1.5) % Neut # (Auto) 6.0 H (1.4-5.7) K/uL Lymph # (Auto) 2.1 (0.6-2.4) K/uL [place] # (Auto) 0.7 (0.0-0.8) K/uL Eos # (Auto) 0.1 (0.0-0.7) K/uL Baso # (Auto) 0.1 (0.0-0.1) K/uL Nucleated RBC % 0.0 /100WBC Nucleated RBCs # 0 K/uL INR (0.86-1.11) Sodium 142 (136-146) mmol/L Potassium 4.3 (3.5-5.1) mmol/L Chloride 109 (98-110) mmol/L Carbon Dioxide 23 (21-31) mmol/L BUN 33 H (6.0-23.0) mg/dL Creatinine 1.2 (0.6-1.5) mg/dL Est Cr Clr Drug Dosing 28.68 mL/min Estimated GFR (MDRD) 43.3 ml/min Glucose 90 (60-110) mg/dL POC Glucose (60-110) mg/dL Calcium 8.6 L (8.8-10.8) mg/dL Troponin I < 0.10 (0.0-0.29) NG/ML Med Orders - Current: Current Medications Carvedilol (Coreg) 3.125 mg PO BID [facility] Last Admin: 11/04/16 20:40 Dose: 3.125 mg Gabapentin (Neurontin) 100 mg PO TID [facility] Last Admin: 11/05/16 06:00 Dose: Not Given Pantoprazole Sodium 80 mg/ (Sodium Chloride) 100 mls @ 10 mls/hr IV Q10H [facility] Last Admin: 11/04/16 23:26 Dose: 10 mls/hr Sodium Chloride (Normal Saline) 1,000 mls @ 125 mls/hr IV ASDIRECTED [facility] Last Admin: 11/04/16 23:29 Dose: 125 mls/hr Insulin Aspart (Novolog) 0 unit SUBCUT Q6H [facility]ANNI PRN Reason: Protocol Last Admin: 11/05/16 07:31 Dose: Not Given Tramadol HCl (Ultram) 50 mg PO Q4H PRN PRN Reason: Pain (severe 7-10) Last Admin: 11/04/16 23:06 Dose: 50 mg Discontinued Medications Sodium Chloride (Normal Saline) 1,000 mls @ 999 mls/hr IV .Bolus ONE Stop: 11/04/16 11:22 Last Admin: 11/04/16 10:43 Dose: 999 mls/hr Pantoprazole Sodium (Protonix Iv) 80 mg IVPUSH .BOLUS ONE Stop: 11/04/16 10:59 Last Admin: 11/04/16 11:31 Dose: 80 mg - Exam General: alert, oriented HEENT: Pupils equal, Pupils reactive Lungs: Normal respiratory effort Cardiovascular: Regular Rate Abdomen: soft, no tenderness, no distension Skin: warm, dry, intact - Problem List & Annotations (1) GI bleed SNOMED Code(s): 52957874 Code(s): K92.2 - GASTROINTESTINAL HEMORRHAGE, UNSPECIFIED Status: Acute Current Visit: Yes Qualifiers: GI bleed type/associated pathology: unspecified gastrointestinal hemorrhage type Qualified Code(s): K92.2 - Gastrointestinal hemorrhage, unspecified - Problem List Review Problem List Initiated/Reviewed/Updated: Yes - My Orders Last 24 Hours: Active Orders 24 hr Category Date Time Status Admission Status [Patient Status] [ADT] Routine ADT 11/04/16 09:14 Active Antiembolic Devices [RC] PER UNIT ROUTINE Care 11/04/16 13:32 Active Communication Order [RC] ROUTINE Care 11/04/16 18:08 Active EKG Documentation Completion [RC] STAT Care 11/04/16 20:18 Active Oxygen Therapy [RC] PRN Care 11/04/16 13:32 Active VTE/DVT Education [RC] PER UNIT ROUTINE Care 11/04/16 13:32 Active Verify Patient Consent Obtain [RC] ASDIRECTED Care 11/04/16 18:06 Active Vital Signs [RC] Q4H Care 11/04/16 13:32 Active TROPONIN I [CHEM] Q6H Lab 11/05/16 08:17 Received Carvedilol [Coreg] Med 06/10/17 21:00 Active 3.125 mg PO BID Gabapentin [Neurontin] Med 11/04/16 22:48 Active 100 mg PO TID Insulin Aspart [NovoLOG] Med 11/04/16 13:15 Active See Protocol SUBCUT Q6H Pantoprazole [ProTONIX IV] 80 mg Med 11/04/16 13:15 Active Sodium Chloride 0.9% [Normal Saline] 100 ml IV Q10H Sodium Chloride 0.9% [Normal Saline] 1,000 ml Med 11/04/16 13:15 Active IV ASDIRECTED traMADol [Ultram] Med 11/04/16 22:50 Active 50 mg PO Q4H PRN Sequential Compression Device [OM.PC] Per Unit Routine Ot 11/04/16 13:32 Ordered Transfuse PRBC [Transfuse Red Blood Cells] [COMM] Ot 11/04/16 18:05 Ordered Routine Medication Orders Carvedilol (Coreg) 3.125 mg PO BID [facility] Last Admin: 11/04/16 20:40 Dose: 3.125 mg Gabapentin (Neurontin) 100 mg PO TID [facility] Last Admin: 11/05/16 06:00 Dose: Not Given Admin: 11/04/16 23:06 Dose: 100 mg Pantoprazole Sodium 80 mg/ (Sodium Chloride) 100 mls @ 10 mls/hr IV Q10H [facility] Last Admin: 11/04/16 23:26 Dose: 10 mls/hr Infusion: 11/04/16 23:26 Dose: 10 mls/hr Admin: 11/04/16 14:10 Dose: 10 mls/hr Sodium Chloride (Normal Saline) 1,000 mls @ 125 mls/hr IV ASDIRECTED [facility] Last Admin: 11/04/16 23:29 Dose: 125 mls/hr Infusion: 11/04/16 21:10 Dose: 125 mls/hr Admin: 11/04/16 13:10 Dose: 125 mls/hr Insulin Aspart (Novolog) 0 unit SUBCUT Q6H [facility] PRN Reason: Protocol Last Admin: 11/05/16 07:31 Dose: Not Given Admin: 11/05/16 00:52 Dose: Not Given Admin: 11/04/16 19:15 Dose: Not Given Admin: 11/04/16 14:24 Dose: Not Given Tramadol HCl (Ultram) 50 mg PO Q4H PRN PRN Reason: Pain (severe 7-10) Last Admin: 11/04/16 23:06 Dose: 50 mg - Plan Plan (Free Text/Narrative):: Will perform an EGD on patient this morning given her hemoglobin drop, continued melanic stool, and the need for blood transfusion. I believe this is coming from an upper GI source given her history of heartburn and epigastric pain that is not treated. Will determine further care after procedure.
[2016-11-05] MEDS ORDERED: Propofol 200 MG/20 ML SDV ONE (09:33)
[2016-11-05] MEDS: Pantoprazole 80 MG in Sodium Chloride 0.9% 100 ML IV SCH ×2 (09:47→21:12)
[2016-11-05] MEDS: Sodium Chloride 0.9% 1,000 ML IV SCH ×2 (09:47→19:50)
[2016-11-05] MEDS ORDERED: Metoprolol Tartrate 5 MG/5 ML SDV ONE (10:10)
--- NOTE | 2016-11-05 10:13 | PCM.PN ---
- Review of Systems Systems Review Comment:: she had some left sided chest pain last night, EKG and cardiac enzymes negative - Patient Data Vitals - most recent: Last Vital Signs Temp 37.0 C 11/05/16 07:55 Pulse 82 11/05/16 07:55 Resp 20 11/05/16 07:55 BP 158/98 H 11/05/16 07:55 Pulse Ox 94 L 11/05/16 07:55 Weight - most recent: 58.1 kg I&O - last 24 hours: Intake & Output 11/04/16 11/05/16 11/05/16 22:59 06:59 14:59 Intake Total 708 2178 833 Output Total 800 2300 Balance -92 -122 833 Lab Results last 24 hrs: Laboratory Results - last 24 hr 11/04/16 11/04/16 11/04/16 Range/Units 14:02 14:23 16:53 WBC 9.47 (4.0-11.0) K/uL RBC 2.84 L (4.30-5.90) M/uL Hgb 8.2 L (12.0-16.0) g/dL Hct 25.0 L (36.0-46.0) % MCV 88.0 (80.0-98.0) fL MCH 28.9 (27.0-32.0) pg MCHC 32.8 (31.0-37.0) g/dL RDW Std Deviation 45.3 (28.0-62.0) fl RDW Coeff of Rad 14 (11.0-15.0) % Plt Count 241 (150-400) K/uL MPV 9.10 (7.40-12.00) fL Neut % (Auto) (48.0-80.0) % Lymph % (Auto) (16.0-40.0) % [place] % (Auto) (0.0-15.0) % Eos % (Auto) (0.0-7.0) % Baso % (Auto) (0.0-1.5) % Neut # (Auto) (1.4-5.7) K/uL Lymph # (Auto) (0.6-2.4) K/uL [place] # (Auto) (0.0-0.8) K/uL Eos # (Auto) (0.0-0.7) K/uL Baso # (Auto) (0.0-0.1) K/uL Nucleated RBC % 0.0 /100WBC Nucleated RBCs # 0 K/uL INR 1.05 (0.86-1.11) Sodium (136-146) mmol/L Potassium (3.5-5.1) mmol/L Chloride (98-110) mmol/L Carbon Dioxide (21-31) mmol/L BUN (6.0-23.0) mg/dL Creatinine (0.6-1.5) mg/dL Est Cr Clr Drug Dosing mL/min Estimated GFR (MDRD) ml/min Glucose (60-110) mg/dL POC Glucose 88 (60-110) mg/dL Calcium (8.8-10.8) mg/dL Troponin I (0.0-0.29) NG/ML 11/04/16 11/04/16 11/05/16 Range/Units 19:08 20:35 00:17 WBC (4.0-11.0) K/uL RBC (4.30-5.90) M/uL Hgb (12.0-16.0) g/dL Hct (36.0-46.0) % MCV (80.0-98.0) fL MCH (27.0-32.0) pg MCHC (31.0-37.0) g/dL RDW Std Deviation (28.0-62.0) fl RDW Coeff of Rad (11.0-15.0) % Plt Count (150-400) K/uL MPV (7.40-12.00) fL Neut % (Auto) (48.0-80.0) % Lymph % (Auto) (16.0-40.0) % [place] % (Auto) (0.0-15.0) % Eos % (Auto) (0.0-7.0) % Baso % (Auto) (0.0-1.5) % Neut # (Auto) (1.4-5.7) K/uL Lymph # (Auto) (0.6-2.4) K/uL [place] # (Auto) (0.0-0.8) K/uL Eos # (Auto) (0.0-0.7) K/uL Baso # (Auto) (0.0-0.1) K/uL Nucleated RBC % /100WBC Nucleated RBCs # K/uL INR (0.86-1.11) Sodium (136-146) mmol/L Potassium (3.5-5.1) mmol/L Chloride (98-110) mmol/L Carbon Dioxide (21-31) mmol/L BUN (6.0-23.0) mg/dL Creatinine (0.6-1.5) mg/dL Est Cr Clr Drug Dosing mL/min Estimated GFR (MDRD) ml/min Glucose (60-110) mg/dL POC Glucose 81 87 (60-110) mg/dL Calcium (8.8-10.8) mg/dL Troponin I < 0.10 (0.0-0.29) NG/ML 11/05/16 11/05/16 11/05/16 Range/Units 02:35 02:35 02:35 WBC 8.90 (4.0-11.0) K/uL RBC 3.97 L (4.30-5.90) M/uL Hgb 11.8 L (12.0-16.0) g/dL Hct 35.1 L (36.0-46.0) % MCV 88.4 (80.0-98.0) fL MCH 29.7 (27.0-32.0) pg MCHC 33.6 (31.0-37.0) g/dL RDW Std Deviation 44.2 (28.0-62.0) fl RDW Coeff of Rad 14 (11.0-15.0) % Plt Count 229 (150-400) K/uL MPV 9.50 (7.40-12.00) fL Neut % (Auto) 67.3 (48.0-80.0) % Lymph % (Auto) 23.8 (16.0-40.0) % [place] % (Auto) 7.5 (0.0-15.0) % Eos % (Auto) 0.8 (0.0-7.0) % Baso % (Auto) 0.6 (0.0-1.5) % Neut # (Auto) 6.0 H (1.4-5.7) K/uL Lymph # (Auto) 2.1 (0.6-2.4) K/uL [place] # (Auto) 0.7 (0.0-0.8) K/uL Eos # (Auto) 0.1 (0.0-0.7) K/uL Baso # (Auto) 0.1 (0.0-0.1) K/uL Nucleated RBC % 0.0 /100WBC Nucleated RBCs # 0 K/uL INR (0.86-1.11) Sodium 142 (136-146) mmol/L Potassium 4.3 (3.5-5.1) mmol/L Chloride 109 (98-110) mmol/L Carbon Dioxide 23 (21-31) mmol/L BUN 33 H (6.0-23.0) mg/dL Creatinine 1.2 (0.6-1.5) mg/dL Est Cr Clr Drug Dosing 28.68 mL/min Estimated GFR (MDRD) 43.3 ml/min Glucose 90 (60-110) mg/dL POC Glucose (60-110) mg/dL Calcium 8.6 L (8.8-10.8) mg/dL Troponin I < 0.10 (0.0-0.29) NG/ML 11/05/16 Range/Units 08:17 WBC (4.0-11.0) K/uL RBC (4.30-5.90) M/uL Hgb (12.0-16.0) g/dL Hct (36.0-46.0) % MCV (80.0-98.0) fL MCH (27.0-32.0) pg MCHC (31.0-37.0) g/dL RDW Std Deviation (28.0-62.0) fl RDW Coeff of Rad (11.0-15.0) % Plt Count (150-400) K/uL MPV (7.40-12.00) fL Neut % (Auto) (48.0-80.0) % Lymph % (Auto) (16.0-40.0) % [place] % (Auto) (0.0-15.0) % Eos % (Auto) (0.0-7.0) % Baso % (Auto) (0.0-1.5) % Neut # (Auto) (1.4-5.7) K/uL Lymph # (Auto) (0.6-2.4) K/uL [place] # (Auto) (0.0-0.8) K/uL Eos # (Auto) (0.0-0.7) K/uL Baso # (Auto) (0.0-0.1) K/uL Nucleated RBC % /100WBC Nucleated RBCs # K/uL INR (0.86-1.11) Sodium (136-146) mmol/L Potassium (3.5-5.1) mmol/L Chloride (98-110) mmol/L Carbon Dioxide (21-31) mmol/L BUN (6.0-23.0) mg/dL Creatinine (0.6-1.5) mg/dL Est Cr Clr Drug Dosing mL/min Estimated GFR (MDRD) ml/min Glucose (60-110) mg/dL POC Glucose (60-110) mg/dL Calcium (8.8-10.8) mg/dL Troponin I < 0.10 (0.0-0.29) NG/ML Med Orders - Current: Current Medications Carvedilol (Coreg) 3.125 mg PO BID [facility] Last Admin: 11/04/16 20:40 Dose: 3.125 mg Gabapentin (Neurontin) 100 mg PO TID [facility] Last Admin: 11/05/16 06:00 Dose: Not Given Pantoprazole Sodium 80 mg/ (Sodium Chloride) 100 mls @ 10 mls/hr IV Q10H [facility] Last Admin: 11/05/16 09:47 Dose: 10 mls/hr Sodium Chloride (Normal Saline) 1,000 mls @ 125 mls/hr IV ASDIRECTED [facility] Last Admin: 11/05/16 09:47 Dose: 125 mls/hr Insulin Aspart (Novolog) 0 unit SUBCUT Q6H [facility] PRN Reason: Protocol Last Admin: 11/05/16 07:31 Dose: Not Given Tramadol HCl (Ultram) 50 mg PO Q4H PRN PRN Reason: Pain (severe 7-10) Last Admin: 11/04/16 23:06 Dose: 50 mg Discontinued Medications Sodium Chloride (Normal Saline) 1,000 mls @ 999 mls/hr IV .Bolus ONE Stop: 11/04/16 11:22 Last Admin: 11/04/16 10:43 Dose: 999 mls/hr Lidocaine HCl (Xylocaine-Mpf 1%) Confirm Administered Dose 5 ml .ROUTE .STK-MED ONE Stop: 11/05/16 09:36 Pantoprazole Sodium (Protonix Iv) 80 mg IVPUSH .BOLUS ONE Stop: 11/04/16 10:59 Last Admin: 11/04/16 11:31 Dose: 80 mg Propofol (Diprivan 20 Ml) Confirm Administered Dose 200 mg .ROUTE .STK-MED ONE Stop: 11/05/16 09:34 - Exam General: alert, oriented Lungs: Clear to auscultation, Normal respiratory effort Cardiovascular: Regular Rate, Regular Rhythm Abdomen: bowel sounds present, soft, no tenderness, no distension Extremities: no edema Skin: warm, dry, intact Neurological: no new focal deficit - Problem List Review Problem List Initiated/Reviewed/Updated: Yes - My Orders Last 24 Hours: My Active Orders 11/04/16 09:14 Admission Status [Patient Status] [ADT] Routine 11/04/16 13:15 Insulin Aspart [NovoLOG] See Protocol SUBCUT Q6H Pantoprazole [ProTONIX IV] 80 mg Sodium Chloride 0.9% [Normal Saline] 100 ml IV Q10H Sodium Chloride 0.9% [Normal Saline] 1,000 ml IV ASDIRECTED 11/04/16 13:32 Antiembolic Devices [RC] PER UNIT ROUTINE Oxygen Therapy [RC] PRN VTE/DVT Education [RC] PER UNIT ROUTINE Vital Signs [RC] Q4H Sequential Compression Device [OM.PC] Per Unit Routine 11/04/16 18:05 Transfuse PRBC [Transfuse Red Blood Cells] [COMM] Routine 11/04/16 18:06 Verify Patient Consent Obtain [RC] ASDIRECTED 11/04/16 18:08 Communication Order [RC] ROUTINE 11/04/16 20:18 EKG Documentation Completion [RC] STAT 11/04/16 21:00 Carvedilol [Coreg] 3.125 mg PO BID 11/04/16 22:48 Gabapentin [Neurontin] 100 mg PO TID 11/04/16 22:50 traMADol [Ultram] 50 mg PO Q4H PRN - Plan Plan:: 81 yo female admitted with GI bleed. I suspect upper GI bleed. She continues to have melantoic stools. She was transfused two units with Hgb of 11.8 this morning. Blood pressure has improved so have restarted coreg. We will continue protonix drip. Dr. Neal is consulted and plans on EGD this morning.
--- NOTE | 2016-11-05 10:29 | PCM.OPNOTE ---
- General Post-Op/Procedure Note Date of Surgery/Procedure: 11/05/16 Operative Procedure(s): Diagnostic EGD with biopsy Findings: Gastritis and type I hiatal hernia Pre Op Diagnosis: GI bleed Post-Op Diagnosis: Hiatal hernia, gastritis Anesthesia Technique: [facility] Primary Surgeon: Carrol Neal Pathology: Gastric body fundus and antrum for path and H pylori Condition: Fair Free Text/Narrative:: Intake & Output 11/04/16 11/05/16 11/05/16 22:59 06:59 14:59 Intake Total 708 2178 833 Output Total 800 2300 Balance -92 122 833
--- NOTE | 2016-11-05 10:47 | PCM.POSTAN ---
POST ANESTHESIA ASSESSMENT - MENTAL STATUS Mental Status: alert, oriented - RESPIRATORY Respiratory Status: respiratory rate WNL, airway patent, O2 saturation stable - CARDIOVASCULAR CV Status: pulse rate WNL, blood pressure stable - GASTROINTESTINAL GI Status: no symptoms - POST OP HYDRATION Hydration Status: adequate & stable
--- NOTE | 2016-11-05 11:02 | PCM.SN ---
- Free Text/Narrative Note: Patients EGD showed gastritis and a hiatal hernia, but no stigmata of bleeding. I discussed my operative findings with the patient. I feel we should perform a diagnostic colonoscopy with possible biopsy to look for a lower source of her GI bleed. The patient and I discussed the procedure, the expected perioperative course and the risks including bleeding, infection, or damage to surrounding structures including perforation. She verbalized understanding and wishes to proceed. She will stay inpatient and will do the prep here. Prep includes the followin tabs dulcolax at 1300. 1/2 bottle of miralax with 32 oz of gatorade at 1500 to be drank over the course of 3 hours. 1/2 bottle of miralax with 32 oz of gatorade at 1800 to be drank over the course of 3 hours. I
--- NOTE | 2016-11-05 11:15 | PCM48HPAN ---
Post Anesthesia Note - EVALUATION WITHIN 48HRS OF ANESTHETIC Vital Signs in Normal Range: No (BP still 170-180-s) Patient Participated in Evaluation: Yes Respiratory Function Stable: Yes Airway Patent: Yes Cardiovascular Function Stable: Yes Hydration Status Stable: Yes Pain Control Satisfactory: Yes Nausea and Vomiting Control Satisfactory: Yes Mental Status Recovered: Yes - COMMENTS/OBSERVATIONS Free Text/Narrative:: Talked to RNs also about making sure patient gets BP meds right away
[2016-11-05] MEDS: traMADol 50 MG Tab PO PRN ×2 (12:04→19:48)
[2016-11-05] MEDS: Carvedilol 3.125 MG Tab PO SCH ×2 (12:05→20:12)
[2016-11-05] MEDS ORDERED: Bisacodyl 5 MG Tab PO SCH (13:00)
[2016-11-05] MEDS: Lisinopril 10 MG Tab PO SCH (14:45)
--- NOTE | 2016-11-05 14:52 | OR ---
SURGEON: KARI BHATT MD DATE OF PROCEDURE: 11/05/2016 PREOPERATIVE DIAGNOSIS: Gastrointestinal bleed. POSTOPERATIVE DIAGNOSES: Gastritis, hiatal hernia. PROCEDURE PERFORMED: Diagnostic EGD with biopsy. INSTRUMENT USED: Olympus endoscope. ANESTHESIA: MAC. EXTENT OF EXAM: To the second portion of the duodenum. LIMITATIONS: None. COMPLICATIONS: None. INDICATIONS: The patient is a 81-year-old female, who presented with melanic stool. She was admitted to the hospital. The patient's hemoglobin drifted overnight and she received 1 unit of blood. She complains of a history of epigastric pain and acid reflux, which she manages with [id number] Tums. In order to look for source of her GI bleed, we decided to perform diagnostic EGD with biopsy. I explained the procedure to the patient including the expected perioperative course. We discussed the risks, including bleeding, infection, or damage to surrounding structures. The patient verbalized understanding and wished to proceed. PROCEDURE IN DETAIL: The patient was brought into the operating room and placed on the OR cart in a beach chair position. A time-out was completed verifying the patient's name, age, date of , allergies, and procedure to be performed. A bite block was placed in the patient's mouth and monitored anesthesia care was induced. Continuous oxygen was provided via nasal cannula throughout the procedure. A well lubricated endoscope was placed in the patient's mouth and advanced under direct visualization to the second portion of the duodenum. This appeared normal and a photograph was taken. The scope was pulled back taking care to look for any ulceration within the small bowel and none was noted. The scope was brought into the stomach and a photograph taken of the pylorus as well as the esophageal hiatus. The patient was found to have moderate gastritis throughout the stomach but there was no evidence or stigmata of recent bleed. There were no ulcerations within the gastric mucosa. The patient did appear to have a type 1 hiatal hernia. Biopsies were taken of the gastric antrum, body, and fundus and sent for pathology and H. pylori testing. The scope was brought into the esophagus. The patient did have a small hiatal hernia and there was some inflammation within the hernia sac itself. The remainder of the esophageal mucosa appeared normal. The scope was then removed from the patient and the procedure was terminated. Prior to completing the procedure, I ensured that the biopsy sites were hemostatic. The patient tolerated the procedure well. She was taken to the postoperative care unit in stable condition. INEZ CARO /[id number] MTDD
[2016-11-05] MEDS ORDERED: Polyethylene Glycol 3350 Powder 17 GM Packet PO ONE ×2 (15:00→18:00)
[2016-11-05] MEDS: Cyclobenzaprine 10 MG Tab PO PRN (21:54)
[2016-11-06] MEDS: traMADol 50 MG Tab PO PRN ×2 (00:10→04:32)
[2016-11-06] MEDS: Insulin Aspart 100 Units/ML 3 ML Pen SUBCUT SCH ×4 (01:13→19:10)
[2016-11-06] MEDS: Sodium Chloride 0.9% 1,000 ML IV SCH ×3 (04:30→23:34)
[2016-11-06 06:15] LABS: CHLORIDE,CL 115 mmol/L (98-110); SODIUM,NA 142 mmol/L (136-146)
[2016-11-06] MEDS: Gabapentin 100 MG Cap PO SCH ×3 (06:30→22:03)
[2016-11-06] MEDS: Pantoprazole 80 MG in Sodium Chloride 0.9% 100 ML IV SCH ×2 (06:51→16:06)
[2016-11-06] MEDS: Lisinopril 10 MG Tab PO SCH (08:17)
[2016-11-06] MEDS: Carvedilol 3.125 MG Tab PO SCH ×2 (08:17→20:05)
[2016-11-06] MEDS ORDERED: Potassium Chloride 20 MEQ Tab.ER PO ONE (08:55)
[2016-11-06] MEDS ORDERED: Propofol 200 MG/20 ML SDV ONE ×4 (10:01→14:16)
--- NOTE | 2016-11-06 10:46 | CR ---
EXAM DATE: 11/05/16 PATIENT'S AGE: 81 Patient: JESSICA JOYCE Facility: [place], [place] Site . Site : 1935 Study: XRay Chest [id number]/10/2017 9:33:58 AM Ordering Physician: Timoteo Auguste Final Report: INDICATION: dizzy, nausea and sob TECHNIQUE: Portable AP upright chest film submitted. COMPARISON: None Findings : Heart size and pulmonary vasculature within normal limits. No acute infiltrates. Strand of linear scarring or atelectasis in the left mid lung field laterally. Skin folds projected over both lung bases. Surgical clips at the base of the neck on the left. IMPRESSION: No acute abnormality. Dictated by Andreas Graves MD @ 11/04/2016 9:50:09 AM Dictated by: Adnreas Graves MD @ 11/04/2016 09:50:23 (Electronic Signature) Report Signed by Proxy. POORNIMA
--- NOTE | 2016-11-06 10:50 | CT ---
EXAM DATE: 11/05/16 PATIENT'S AGE: 81 Patient: JESSICA JOYCE Facility: [place], [place] Site . Site : 1935 Study: CT Abdomen/Pelvis [id number] wo cont-11/04/2016 12:29:54 PM Ordering Physician: Timoteo Auguste Final Report: INDICATION: Bloody Stool HISTORY: Bloody stool. COMPARISON: CT abdomen and pelvis 07/14/2016. TECHNIQUE: CT of the abdomen and pelvis without contrast. Coronal/sagittal reconstruction images. FINDINGS: Lung bases: There is no pleural or pericardial effusion. The heart size is normal. Pleural- based opacities are present at the right lung base. These may reflect atelectasis. Similar findings were present previously. There is no basilar pneumothorax. Abdomen/pelvis: Gallbladder appears surgically absent. There is mild dilation of the intrahepatic biliary tree, stable. Multiple left upper quadrant nodules which are most likely splenules. Significant decrease in size of the perinephric and subcapsular hematoma about the right kidney. Thickening of Gerota`s fascia and the lateroconal fascia is improved. No adrenal mass. No pancreatic mass or pancreatic duct dilation. No glandular atrophy. Distention of the urinary bladder. No adnexal mass. Uterus appears surgically absent. There is colonic diverticulosis. There are no findings for diverticulitis. There is no small bowel obstruction. Moderate arterial calcifications in a normal caliber abdominal aorta. There is no abdominal or pelvic lymphadenopathy by size criteria. The bone windows demonstrate diffuse osteopenia. Degenerative changes throughout the apophyseal joints and endplates of the lumbar spine, with scoliosis. Vertebral body heights are maintained on sagittal reconstruction images. IMPRESSION: 1. There is no wall thickening within the small bowel or colon. No perienteric edema. 2. There is no pneumatosis or portal venous gas. No transition point to indicate a mechanical obstruction. 3. The right perinephric and subcapsular hematoma about the right kidney has decreased in size. Thickening of Gerota`s fascia/lateroconal fascia is improved. 4. No abdominal/pelvic lymphadenopathy. Dictated by Andreas Ornelas MD @ 11/04/2016 1:05:10 PM Dictated by: Andreas Ornelas MD @ 11/04/2016 13:05:19 (Electronic Signature) Report Signed by Proxy. KANAD
[2016-11-06] MEDS ORDERED: Lidocaine 2% 5 ML SDV ONE (12:31)
[2016-11-06] MEDS ORDERED: fentaNYL 100 MCG/2 ML SDV ONE (12:31)
--- NOTE | 2016-11-06 14:32 | PCM.OPNOTE ---
- General Post-Op/Procedure Note Date of Surgery/Procedure: 11/06/16 Operative Procedure(s): Diagnostic colonoscopy Findings: Large amount of melanic stool throughout colon. No obstructing masses. Pre Op Diagnosis: GI bleed Post-Op Diagnosis: GI bleed Anesthesia Technique: MAC Primary Surgeon: Carorl Neal Condition: Fair Free Text/Narrative:: Intake & Output 11/05/16 11/06/16 11/06/16 22:59 06:59 14:59 Intake Total 3983 370 Output Total 1450 Balance 0731 448
--- NOTE | 2016-11-06 14:33 | PCM.PN ---
- Review of Systems Systems Review Comment:: reports red stool, with prep - Patient Data Vitals - most recent: Last Vital Signs Temp 36.3 C 11/06/16 12:55 Pulse 87 11/06/16 12:55 Resp 17 11/06/16 12:55 BP 163/77 H 11/06/16 12:55 Pulse Ox 98 11/06/16 12:55 Weight - most recent: 58.8 kg I&O - last 24 hours: Intake & Output 11/05/16 11/06/16 11/06/16 22:59 06:59 14:59 Intake Total 3983 370 Output Total 1450 Balance 2533 370 Lab Results last 24 hrs: Laboratory Results - last 24 hr 11/06/16 11/06/16 11/06/16 Range/Units 00:14 05:32 05:32 WBC 9.61 (4.0-11.0) K/uL RBC 2.94 L (4.30-5.90) M/uL Hgb 8.6 L (12.0-16.0) g/dL Hct 26.0 L (36.0-46.0) % MCV 88.4 (80.0-98.0) fL MCH 29.3 (27.0-32.0) pg MCHC 33.1 (31.0-37.0) g/dL RDW Std Deviation 43.9 (28.0-62.0) fl RDW Coeff of Rad 14 (11.0-15.0) % Plt Count 210 (150-400) K/uL MPV 9.30 (7.40-12.00) fL Neut % (Auto) 72.2 (48.0-80.0) % Lymph % (Auto) 20.3 (16.0-40.0) % [place] % (Auto) 6.5 (0.0-15.0) % Eos % (Auto) 0.6 (0.0-7.0) % Baso % (Auto) 0.4 (0.0-1.5) % Neut # (Auto) 6.9 H (1.4-5.7) K/uL Lymph # (Auto) 2.0 (0.6-2.4) K/uL [place] # (Auto) 0.6 (0.0-0.8) K/uL Eos # (Auto) 0.1 (0.0-0.7) K/uL Baso # (Auto) 0.0 (0.0-0.1) K/uL Nucleated RBC % 0.0 /100WBC Nucleated RBCs # 0 K/uL Sodium 142 (136-146) mmol/L Potassium 3.4 L (3.5-5.1) mmol/L Chloride 115 H (98-110) mmol/L Carbon Dioxide 20 L (21-31) mmol/L BUN 30 H (6.0-23.0) mg/dL Creatinine 0.9 (0.6-1.5) mg/dL Est Cr Clr Drug Dosing 38.29 mL/min Estimated GFR (MDRD) > 60.0 ml/min Glucose 98 (60-110) mg/dL POC Glucose 93 (60-110) mg/dL Calcium 7.7 L (8.8-10.8) mg/dL 11/06/16 11/06/16 11/06/16 Range/Units 06:30 12:54 13:04 WBC (4.0-11.0) K/uL RBC (4.30-5.90) M/uL Hgb 9.8 L (12.0-16.0) g/dL Hct (36.0-46.0) % MCV (80.0-98.0) fL MCH (27.0-32.0) pg MCHC (31.0-37.0) g/dL RDW Std Deviation (28.0-62.0) fl RDW Coeff of Rad (11.0-15.0) % Plt Count (150-400) K/uL MPV (7.40-12.00) fL Neut % (Auto) (48.0-80.0) % Lymph % (Auto) (16.0-40.0) % [place] % (Auto) (0.0-15.0) % Eos % (Auto) (0.0-7.0) % Baso % (Auto) (0.0-1.5) % Neut # (Auto) (1.4-5.7) K/uL Lymph # (Auto) (0.6-2.4) K/uL [place] # (Auto) (0.0-0.8) K/uL Eos # (Auto) (0.0-0.7) K/uL Baso # (Auto) (0.0-0.1) K/uL Nucleated RBC % /100WBC Nucleated RBCs # K/uL Sodium (136-146) mmol/L Potassium (3.5-5.1) mmol/L Chloride (98-110) mmol/L Carbon Dioxide (21-31) mmol/L BUN (6.0-23.0) mg/dL Creatinine (0.6-1.5) mg/dL Est Cr Clr Drug Dosing mL/min Estimated GFR (MDRD) ml/min Glucose (60-110) mg/dL POC Glucose 90 84 (60-110) mg/dL Calcium (8.8-10.8) mg/dL Med Orders - Current: Current Medications Bisacodyl (Dulcolax) 20 mg PO ASDIRECTED [facility] Last Admin: 11/05/16 13:15 Dose: 20 mg Carvedilol (Coreg) 3.125 mg PO BID [facility] Last Admin: 11/06/16 08:17 Dose: 3.125 mg Cyclobenzaprine HCl (Flexeril) 5 mg PO Q8H PRN PRN Reason: Muscle Spam Last Admin: 11/05/16 21:54 Dose: 5 mg Gabapentin (Neurontin) 100 mg PO TID [facility] Last Admin: 11/06/16 06:30 Dose: Not Given Pantoprazole Sodium 80 mg/ (Sodium Chloride) 100 mls @ 10 mls/hr IV Q10H [facility] Last Admin: 11/06/16 06:51 Dose: 10 mls/hr Sodium Chloride (Normal Saline) 1,000 mls @ 125 mls/hr IV ASDIRECTED [facility] Last Admin: 11/06/16 04:30 Dose: 125 mls/hr Insulin Aspart (Novolog) 0 unit SUBCUT Q6H [facility] PRN Reason: Protocol Last Admin: 11/06/16 13:16 Dose: Not Given Lisinopril (Prinivil) 20 mg PO DAILY [facility] Last Admin: 11/06/16 08:17 Dose: 20 mg Tramadol HCl (Ultram) 50 mg PO Q4H PRN PRN Reason: Pain (severe 7-10) Last Admin: 11/06/16 04:32 Dose: 50 mg Discontinued Medications Fentanyl (Sublimaze) Confirm Administered Dose 100 mcg .ROUTE .STK-MED ONE Stop: 11/06/16 12:32 Glycopyrrolate () Confirm Administered Dose 1 mg .ROUTE .STK-MED ONE Stop: 11/06/16 13:33 Sodium Chloride (Normal Saline) 1,000 mls @ 999 mls/hr IV .Bolus ONE Stop: 11/04/16 11:22 Last Admin: 11/04/16 10:43 Dose: 999 mls/hr Lidocaine (Xylocaine-Mpf 2%) Confirm Administered Dose 5 ml .ROUTE .STK-MED ONE Stop: 11/06/16 12:32 Lidocaine HCl (Xylocaine-Mpf 1%) Confirm Administered Dose 5 ml .ROUTE .STK-MED ONE Stop: 11/05/16 09:36 Metoprolol Tartrate (Lopressor) Confirm Administered Dose 5 mg .ROUTE .STK-MED ONE Stop: 11/05/16 10:11 Pantoprazole Sodium (Protonix Iv) 80 mg IVPUSH .BOLUS ONE Stop: 11/04/16 10:59 Last Admin: 11/04/16 11:31 Dose: 80 mg Polyethylene Glycol (Miralax) 119 gm PO ONETIME ONE Stop: 11/05/16 15:01 Last Admin: 11/05/16 15:06 Dose: 119 gm Polyethylene Glycol (Miralax) 119 gm PO ONETIME ONE Stop: 11/05/16 18:01 Last Admin: 11/05/16 19:13 Dose: 119 gm Potassium Chloride (Klor-Con M20) 40 meq PO ONETIME ONE Stop: 11/06/16 08:56 Last Admin: 11/06/16 08:58 Dose: 40 meq Propofol (Diprivan 20 Ml) Confirm Administered Dose 200 mg .ROUTE .STK-MED ONE Stop: 11/05/16 09:34 Propofol (Diprivan 20 Ml) Confirm Administered Dose 200 mg .ROUTE .STK-MED ONE Stop: 11/06/16 10:02 Propofol (Diprivan 20 Ml) Confirm Administered Dose 400 mg .ROUTE .STK-MED ONE Stop: 11/06/16 12:32 Propofol (Diprivan 20 Ml) Confirm Administered Dose 200 mg .ROUTE .STK-MED ONE Stop: 11/06/16 13:52 Propofol (Diprivan 20 Ml) Confirm Administered Dose 200 mg .ROUTE .STK-MED ONE Stop: 11/06/16 14:17 - Exam General: alert, oriented Lungs: Clear to auscultation, Normal respiratory effort Abdomen: no tenderness, no distension Extremities: no edema Skin: warm, dry, intact - Problem List Review Problem List Initiated/Reviewed/Updated: Yes - My Orders Last 24 Hours: My Active Orders 11/06/16 08:33 Transfuse RBC [Transfuse Red Blood Cells] [COMM] Routine 11/06/16 10:01 Communication Order [RC] ROUTINE - Plan Plan:: 81 yo female admitted with GI bleed. EGD yesterday reported gastritis, Colonosocpy today there was no source of bleed with dark stool comming from terminal ileium Hgb 8.6 this morning so transfusing two units. Will continue protonix drip. Hypertension: coreg and lisinopril resumed.
--- NOTE | 2016-11-06 17:42 | PCM.SURGPN ---
- General Info Date of Service: 11/06/16 Post-Op Diagnosis: GI bleed Functional Status: Reports: other (Denies abdominal pain. Passing some gas. No dizziness. ) - Patient Data Vitals - most recent: Last Vital Signs Temp 36.3 C 11/06/16 12:55 Pulse 87 11/06/16 15:03 Resp 16 11/06/16 15:03 BP 168/93 H 11/06/16 15:03 Pulse Ox 98 11/06/16 15:03 Weight - most recent: 58.8 kg I&O - last 24 hours: Intake & Output 11/06/16 11/06/16 11/06/16 06:59 14:59 22:59 Intake Total 3983 370 2678 Output Total 1450 1450 Balance 2533 370 1228 Lab Results last 24 hrs: Laboratory Results - last 24 hr 11/06/16 11/06/16 11/06/16 Range/Units 00:14 05:32 05:32 WBC 9.61 (4.0-11.0) K/uL RBC 2.94 L (4.30-5.90) M/uL Hgb 8.6 L (12.0-16.0) g/dL Hct 26.0 L (36.0-46.0) % MCV 88.4 (80.0-98.0) fL MCH 29.3 (27.0-32.0) pg MCHC 33.1 (31.0-37.0) g/dL RDW Std Deviation 43.9 (28.0-62.0) fl RDW Coeff of Rad 14 (11.0-15.0) % Plt Count 210 (150-400) K/uL MPV 9.30 (7.40-12.00) fL Neut % (Auto) 72.2 (48.0-80.0) % Lymph % (Auto) 20.3 (16.0-40.0) % [place] % (Auto) 6.5 (0.0-15.0) % Eos % (Auto) 0.6 (0.0-7.0) % Baso % (Auto) 0.4 (0.0-1.5) % Neut # (Auto) 6.9 H (1.4-5.7) K/uL Lymph # (Auto) 2.0 (0.6-2.4) K/uL [place] # (Auto) 0.6 (0.0-0.8) K/uL Eos # (Auto) 0.1 (0.0-0.7) K/uL Baso # (Auto) 0.0 (0.0-0.1) K/uL Nucleated RBC % 0.0 /100WBC Nucleated RBCs # 0 K/uL Sodium 142 (136-146) mmol/L Potassium 3.4 L (3.5-5.1) mmol/L Chloride 115 H (98-110) mmol/L Carbon Dioxide 20 L (21-31) mmol/L BUN 30 H (6.0-23.0) mg/dL Creatinine 0.9 (0.6-1.5) mg/dL Est Cr Clr Drug Dosing 38.29 mL/min Estimated GFR (MDRD) > 60.0 ml/min Glucose 98 (60-110) mg/dL POC Glucose 93 (60-110) mg/dL Calcium 7.7 L (8.8-10.8) mg/dL 11/06/16 11/06/16 11/06/16 Range/Units 06:30 12:54 13:04 WBC (4.0-11.0) K/uL RBC (4.30-5.90) M/uL Hgb 9.8 L (12.0-16.0) g/dL Hct (36.0-46.0) % MCV (80.0-98.0) fL MCH (27.0-32.0) pg MCHC (31.0-37.0) g/dL RDW Std Deviation (28.0-62.0) fl RDW Coeff of Rad (11.0-15.0) % Plt Count (150-400) K/uL MPV (7.40-12.00) fL Neut % (Auto) (48.0-80.0) % Lymph % (Auto) (16.0-40.0) % [place] % (Auto) (0.0-15.0) % Eos % (Auto) (0.0-7.0) % Baso % (Auto) (0.0-1.5) % Neut # (Auto) (1.4-5.7) K/uL Lymph # (Auto) (0.6-2.4) K/uL [place] # (Auto) (0.0-0.8) K/uL Eos # (Auto) (0.0-0.7) K/uL Baso # (Auto) (0.0-0.1) K/uL Nucleated RBC % /100WBC Nucleated RBCs # K/uL Sodium (136-146) mmol/L Potassium (3.5-5.1) mmol/L Chloride (98-110) mmol/L Carbon Dioxide (21-31) mmol/L BUN (6.0-23.0) mg/dL Creatinine (0.6-1.5) mg/dL Est Cr Clr Drug Dosing mL/min Estimated GFR (MDRD) ml/min Glucose (60-110) mg/dL POC Glucose 90 84 (60-110) mg/dL Calcium (8.8-10.8) mg/dL 11/06/16 Range/Units 16:34 WBC (4.0-11.0) K/uL RBC (4.30-5.90) M/uL Hgb 12.3 (12.0-16.0) g/dL Hct 35.6 L (36.0-46.0) % MCV (80.0-98.0) fL MCH (27.0-32.0) pg MCHC (31.0-37.0) g/dL RDW Std Deviation (28.0-62.0) fl RDW Coeff of Rad (11.0-15.0) % Plt Count (150-400) K/uL MPV (7.40-12.00) fL Neut % (Auto) (48.0-80.0) % Lymph % (Auto) (16.0-40.0) % [place] % (Auto) (0.0-15.0) % Eos % (Auto) (0.0-7.0) % Baso % (Auto) (0.0-1.5) % Neut # (Auto) (1.4-5.7) K/uL Lymph # (Auto) (0.6-2.4) K/uL [place] # (Auto) (0.0-0.8) K/uL Eos # (Auto) (0.0-0.7) K/uL Baso # (Auto) (0.0-0.1) K/uL Nucleated RBC % /100WBC Nucleated RBCs # K/uL Sodium (136-146) mmol/L Potassium (3.5-5.1) mmol/L Chloride (98-110) mmol/L Carbon Dioxide (21-31) mmol/L BUN (6.0-23.0) mg/dL Creatinine (0.6-1.5) mg/dL Est Cr Clr Drug Dosing mL/min Estimated GFR (MDRD) ml/min Glucose (60-110) mg/dL POC Glucose (60-110) mg/dL Calcium (8.8-10.8) mg/dL Med Orders - Current: Current Medications Bisacodyl (Dulcolax) 20 mg PO ASDIRECTED [facility] Last Admin: 11/05/16 13:15 Dose: 20 mg Carvedilol (Coreg) 3.125 mg PO BID [facility] Last Admin: 11/06/16 08:17 Dose: 3.125 mg Cyclobenzaprine HCl (Flexeril) 5 mg PO Q8H PRN PRN Reason: Muscle Spam Last Admin: 11/05/16 21:54 Dose: 5 mg Gabapentin (Neurontin) 100 mg PO TID [facility] Last Admin: 11/06/16 16:07 Dose: 100 mg Pantoprazole Sodium 80 mg/ (Sodium Chloride) 100 mls @ 10 mls/hr IV Q10H [facility] Last Admin: 11/06/16 16:06 Dose: 10 mls/hr Sodium Chloride (Normal Saline) 1,000 mls @ 125 mls/hr IV ASDIRECTED [facility] Last Admin: 11/06/16 15:22 Dose: 125 mls/hr Insulin Aspart (Novolog) 0 unit SUBCUT Q6H [facility] PRN Reason: Protocol Last Admin: 11/06/16 13:16 Dose: Not Given Lisinopril (Prinivil) 20 mg PO DAILY [facility] Last Admin: 11/06/16 08:17 Dose: 20 mg Morphine Sulfate (Morphine) 2 mg IVPUSH Q4H PRN PRN Reason: Pain Tramadol HCl (Ultram) 50 mg PO Q4H PRN PRN Reason: Pain (severe 7-10) Last Admin: 11/06/16 04:32 Dose: 50 mg Discontinued Medications Fentanyl (Sublimaze) Confirm Administered Dose 100 mcg .ROUTE .STK-MED ONE Stop: 11/06/16 12:32 Glycopyrrolate () Confirm Administered Dose 1 mg .ROUTE .STK-MED ONE Stop: 11/06/16 13:33 Sodium Chloride (Normal Saline) 1,000 mls @ 999 mls/hr IV .Bolus ONE Stop: 11/04/16 11:22 Last Admin: 11/04/16 10:43 Dose: 999 mls/hr Lidocaine (Xylocaine-Mpf 2%) Confirm Administered Dose 5 ml .ROUTE .STK-MED ONE Stop: 11/06/16 12:32 Lidocaine HCl (Xylocaine-Mpf 1%) Confirm Administered Dose 5 ml .ROUTE .STK-MED ONE Stop: 11/05/16 09:36 Metoprolol Tartrate (Lopressor) Confirm Administered Dose 5 mg .ROUTE .STK-MED ONE Stop: 11/05/16 10:11 Pantoprazole Sodium (Protonix Iv) 80 mg IVPUSH .BOLUS ONE Stop: 11/04/16 10:59 Last Admin: 11/04/16 11:31 Dose: 80 mg Polyethylene Glycol (Miralax) 119 gm PO ONETIME ONE Stop: 11/05/16 15:01 Last Admin: 11/05/16 15:06 Dose: 119 gm Polyethylene Glycol (Miralax) 119 gm PO ONETIME ONE Stop: 11/05/16 18:01 Last Admin: 11/05/16 19:13 Dose: 119 gm Potassium Chloride (Klor-Con M20) 40 meq PO ONETIME ONE Stop: 11/06/16 08:56 Last Admin: 11/06/16 08:58 Dose: 40 meq Propofol (Diprivan 20 Ml) Confirm Administered Dose 200 mg .ROUTE .STK-MED ONE Stop: 11/05/16 09:34 Propofol (Diprivan 20 Ml) Confirm Administered Dose 200 mg .ROUTE .STK-MED ONE Stop: 11/06/16 10:02 Propofol (Diprivan 20 Ml) Confirm Administered Dose 400 mg .ROUTE .STK-MED ONE Stop: 11/06/16 12:32 Propofol (Diprivan 20 Ml) Confirm Administered Dose 200 mg .ROUTE .STK-MED ONE Stop: 11/06/16 13:52 Propofol (Diprivan 20 Ml) Confirm Administered Dose 200 mg .ROUTE .STK-MED ONE Stop: 11/06/16 14:17 - Exam General: alert, oriented HEENT: Pupils equal, Pupils reactive Lungs: Normal respiratory effort Cardiovascular: Regular Rate Abdomen: soft, no tenderness, no distension - Problem List & Annotations (1) GI bleed SNOMED Code(s): 40681372 Code(s): K92.2 - GASTROINTESTINAL HEMORRHAGE, UNSPECIFIED Status: Acute Current Visit: Yes Qualifiers: GI bleed type/associated pathology: unspecified gastrointestinal hemorrhage type Qualified Code(s): K92.2 - Gastrointestinal hemorrhage, unspecified - Problem List Review Problem List Initiated/Reviewed/Updated: Yes - My Orders Last 24 Hours: Active Orders 24 hr Category Date Time Status Communication Order [RC] ROUTINE Care 11/06/16 10:01 Active NPO Now [Nothing per Oral Now Diet] [DIET] Diet 11/06/16 Dinner Active Morphine Med 11/06/16 14:55 Active 2 mg IVPUSH Q4H PRN Transfuse RBC [Transfuse Red Blood Cells] [COMM] Oth 11/06/16 08:33 Ordered Routine Medication Orders Bisacodyl (Dulcolax) 20 mg PO ASDIRECTED [facility] Last Admin: 11/05/16 13:15 Dose: 20 mg Carvedilol (Coreg) 3.125 mg PO BID [facility] Last Admin: 11/06/16 08:17 Dose: 3.125 mg Admin: 11/05/16 20:12 Dose: 3.125 mg Admin: 11/05/16 12:05 Dose: 3.125 mg Admin: 11/04/16 20:40 Dose: 3.125 mg Cyclobenzaprine HCl (Flexeril) 5 mg PO Q8H PRN PRN Reason: Muscle Spam Last Admin: 11/05/16 21:54 Dose: 5 mg Gabapentin (Neurontin) 100 mg PO TID [facility] Last Admin: 11/06/16 16:07 Dose: 100 mg Admin: 11/06/16 06:30 Dose: Admin: 11/05/16 21:11 Dose: 100 mg Admin: 11/05/16 13:19 Dose: 100 mg Admin: 11/05/16 06:00 Dose: Not Given Admin: 11/04/16 23:06 Dose: 100 mg Pantoprazole Sodium 80 mg/ (Sodium Chloride) 100 mls @ 10 mls/hr IV Q10H [facility] Last Admin: 11/06/16 16:06 Dose: 10 mls/hr Infusion: 11/06/16 16:06 Dose: 10 mls/hr Admin: 11/06/16 06:51 Dose: 10 mls/hr Infusion: 11/06/16 06:51 Dose: 10 mls/hr Admin: 11/05/16 21:12 Dose: 10 mls/hr Infusion: 11/05/16 19:47 Dose: 10 mls/hr Admin: 11/05/16 09:47 Dose: 10 mls/hr Infusion: 11/05/16 09:26 Dose: 10 mls/hr Admin: 11/04/16 23:26 Dose: 10 mls/hr Infusion: 11/04/16 23:26 Dose: 10 mls/hr Admin: 11/04/16 14:10 Dose: 10 mls/hr Sodium Chloride (Normal Saline) 1,000 mls @ 125 mls/hr IV ASDIRECTED [facility] Last Admin: 11/06/16 15:22 Dose: 125 mls/hr Infusion: 11/06/16 12:30 Dose: 125 mls/hr Admin: 11/06/16 04:30 Dose: 125 mls/hr Infusion: 11/06/16 03:50 Dose: 125 mls/hr Admin: 11/05/16 19:50 Dose: 125 mls/hr Infusion: 11/05/16 17:47 Dose: 125 mls/hr Admin: 11/05/16 09:47 Dose: 125 mls/hr Infusion: 11/05/16 07:29 Dose: 125 mls/hr Admin: 11/04/16 23:29 Dose: 125 mls/hr Infusion: 11/04/16 21:10 Dose: 125 mls/hr Admin: 11/04/16 13:10 Dose: 125 mls/hr Insulin Aspart (Novolog) 0 unit SUBCUT Q6H [facility] PRN Reason: Protocol Last Admin: 11/06/16 13:16 Dose: Not Given Admin: 11/06/16 06:52 Dose: Not Given Admin: 11/06/16 01:13 Dose: Not Given Admin: 11/05/16 21:10 Dose: Not Given Admin: 11/05/16 13:14 Dose: Not Given Admin: 11/05/16 07:31 Dose: Not Given Admin: 11/05/16 00:52 Dose: Not Given Admin: 11/04/16 19:15 Dose: Not Given Admin: 11/04/16 14:24 Dose: Not Given Lisinopril (Prinivil) 20 mg PO DAILY [facility] Last Admin: 11/06/16 08:17 Dose: 20 mg Admin: 11/05/16 14:45 Dose: 20 mg Morphine Sulfate (Morphine) 2 mg IVPUSH Q4H PRN PRN Reason: Pain Tramadol HCl (Ultram) 50 mg PO Q4H PRN PRN Reason: Pain (severe 7-10) Last Admin: 11/06/16 04:32 Dose: 50 mg Admin: 11/06/16 00:10 Dose: 50 mg Admin: 11/05/16 19:48 Dose: 50 mg Admin: 11/05/16 12:04 Dose: 50 mg Admin: 11/04/16 23:06 Dose: 50 mg - Plan Plan (Free Text/Narrative):: The patient has a GI bleed. Her EGD showed gastritis and a small hiatal hernia with no signs of bleeding. Her colonoscopy was difficult given the large amount of old digested blood and clot along the lining of the colon. However, there were no obstructing lesions and no eidence of active or recent bleeding in the colon itself. This leads me to believe she is bleeding from somewhere in the small bowel. I recommend a tagged red blood cell scan to look for a source of active bleeding. This can be done tomorrow. If this doesn't locate a source and she continues to need blood transfusions, I would transfer her to [facility]. There they could do further testing to locate the source. If we do not locate a source but her hemoglobin stays stable we can advance her diet and monitor her from there. If she stabilizes I would send her to [place] to the gastroenterologists for outpatient follow up. Will continue to follow. Keep npo for the evening and can advance diet tomorrow pending the results of the red cell scan.
[2016-11-06] MEDS: Cyclobenzaprine 10 MG Tab PO PRN (18:31)
[2016-11-06] MEDS: Isosorbide Mononitrate 60 MG Tab.ER PO SCH (18:31)
[2016-11-06] MEDS: Morphine 2 MG/ML Syringe IVPUSH PRN (18:31)
--- NOTE | 2016-11-06 22:09 | OR ---
SURGEON: KARI BHATT MD DATE OF PROCEDURE: 11/06/2016 PREOPERATIVE DIAGNOSIS: Gastrointestinal bleed. POSTOPERATIVE DIAGNOSIS: Gastrointestinal bleed. PROCEDURE PERFORMED: Diagnostic colonoscopy. ANESTHESIA: MAC. EXTENT OF EXAM: To the cecum. INSTRUMENT USED: Olympus colonoscope. LIMITATIONS: Large amount of black to burgundy blood coating the inside wall of the colon making it extremely difficult to see any fine details of the lining of the colon. COMPLICATIONS: None. INDICATIONS: The patient is a 81-year-old female, who presented on Sunday with melenic stool. She was admitted to the hospital and underwent an EGD yesterday morning. She was found to have gastritis and a hiatal hernia but no stigmata of bleeding. The patient continued to have a drop in her hemoglobin with melenic stool. She received 2 units of blood this morning. The decision was made to perform a diagnostic colonoscopy to look for a lesion in the colon. I discussed the procedure with the patient and her family. We discussed the risks, including bleeding, infection, or perforation. The patient verbalized understanding and wishes to proceed. PROCEDURE IN DETAIL: The patient was brought into the operating room suite and placed in the left lateral decubitus position. A time-out was completed verifying the patient's name, age, date of , allergies, and procedure to be performed. Monitored anesthesia care was induced and continuous oxygen was provided via face mask throughout the procedure. After adequate sedation was achieved, a digital rectal exam was performed. This examination was within normal limits other than melenic stool found on my glove at the end. A well-lubricated colonoscope was inserted in the rectum. Immediately encountered a large amount of clotted old blood. I took great care in advancing my scope under direct visualization to the level of the cecum. This was extremely difficult given the amount of liquid and clotted blood within the colon. No bright red bleeding was encountered. I palpated the right lower quadrant when I felt that I got into the cecum. I could feel my scope in the right lower quadrant. Using a large amount of water flushes, I was able to clean off the tissue around the cecum and identified the ileocecal valve. This appeared normal. There was dark appearing material coming out through the terminal ileum, which was noted during my scope. I slowly pulled the scope back, looking for any large obstructing lesions. Due to the amount of melenic stool taking the escalante of the colon, I was unable to identify any subtle lesions that may have been underlying the tissue. No obstructing masses were noted. The scope was taken out of the patient and the procedure terminated. The patient tolerated the procedure well and was taken to the PACU in stable condition. ENDOSCOPIC DIAGNOSIS: Gastrointestinal bleed. Poor colonic prep. However, was unable to identify any intracolonic source of bleeding or obstructing masses. RECOMMENDATIONS: We will perform a red tagged blood cell scan in the morning. Should we be unable to locate a lesion with that scan, the patient may need transfer to a facility with higher GI capabilities. INEZ CARO /[id number]
[2016-11-07] MEDS: Morphine 2 MG/ML Syringe IVPUSH PRN ×3 (00:06→15:39)
[2016-11-07] MEDS: Insulin Aspart 100 Units/ML 3 ML Pen SUBCUT SCH ×3 (01:27→14:35)
[2016-11-07] MEDS: Pantoprazole 80 MG in Sodium Chloride 0.9% 100 ML IV SCH ×2 (02:25→13:52)
[2016-11-07] MEDS: Gabapentin 100 MG Cap PO SCH ×2 (05:57→13:53)
[2016-11-07] MEDS: Sodium Chloride 0.9% 1,000 ML IV SCH (07:54)
[2016-11-07] MEDS: Lisinopril 10 MG Tab PO SCH (08:55)
[2016-11-07] MEDS: Carvedilol 3.125 MG Tab PO SCH (08:55)
[2016-11-07] MEDS: Isosorbide Mononitrate 60 MG Tab.ER PO SCH (08:55)
--- NOTE | 2016-11-07 13:16 | PCM.PN ---
- Review of Systems Systems Review Comment:: reports bloody stool last night, none this morning, slept well. - Patient Data Vitals - most recent: Last Vital Signs Temp 36.7 C 11/07/16 08:00 Pulse 85 11/07/16 08:55 Resp 16 11/07/16 08:00 BP 172/83 H 11/07/16 08:55 Pulse Ox 97 11/07/16 08:00 Weight - most recent: 59.5 kg I&O - last 24 hours: Intake & Output 11/06/16 11/07/16 11/07/16 22:59 06:59 14:59 Intake Total 2678 1120 Output Total 1450 1350 Balance 1228 -230 Lab Results last 24 hrs: Laboratory Results - last 24 hr 11/06/16 11/06/16 11/07/16 Range/Units 13:04 16:34 01:06 WBC (4.0-11.0) K/uL RBC (4.30-5.90) M/uL Hgb 9.8 L 12.3 (12.0-16.0) g/dL Hct 35.6 L (36.0-46.0) % MCV (80.0-98.0) fL MCH (27.0-32.0) pg MCHC (31.0-37.0) g/dL RDW Std Deviation (28.0-62.0) fl RDW Coeff of Rad (11.0-15.0) % Plt Count (150-400) K/uL MPV (7.40-12.00) fL Neut % (Auto) (48.0-80.0) % Lymph % (Auto) (16.0-40.0) % [place] % (Auto) (0.0-15.0) % Eos % (Auto) (0.0-7.0) % Baso % (Auto) (0.0-1.5) % Neut # (Auto) (1.4-5.7) K/uL Lymph # (Auto) (0.6-2.4) K/uL [place] # (Auto) (0.0-0.8) K/uL Eos # (Auto) (0.0-0.7) K/uL Baso # (Auto) (0.0-0.1) K/uL Nucleated RBC % /100WBC Nucleated RBCs # K/uL Sodium (136-146) mmol/L Potassium (3.5-5.1) mmol/L Chloride (98-110) mmol/L Carbon Dioxide (21-31) mmol/L BUN (6.0-23.0) mg/dL Creatinine (0.6-1.5) mg/dL Est Cr Clr Drug Dosing mL/min Estimated GFR (MDRD) ml/min Glucose (60-110) mg/dL POC Glucose 72 (60-110) mg/dL Calcium (8.8-10.8) mg/dL 11/07/16 11/07/16 11/07/16 Range/Units 04:12 04:12 06:46 WBC 8.49 (4.0-11.0) K/uL RBC 3.10 L (4.30-5.90) M/uL Hgb 9.1 L (12.0-16.0) g/dL Hct 27.1 L (36.0-46.0) % MCV 87.4 (80.0-98.0) fL MCH 29.4 (27.0-32.0) pg MCHC 33.6 (31.0-37.0) g/dL RDW Std Deviation 47.6 (28.0-62.0) fl RDW Coeff of Rad 15 (11.0-15.0) % Plt Count 172 (150-400) K/uL MPV 9.30 (7.40-12.00) fL Neut % (Auto) 53.1 (48.0-80.0) % Lymph % (Auto) 37.1 (16.0-40.0) % [place] % (Auto) 7.3 (0.0-15.0) % Eos % (Auto) 1.8 (0.0-7.0) % Baso % (Auto) 0.7 (0.0-1.5) % Neut # (Auto) 4.5 (1.4-5.7) K/uL Lymph # (Auto) 3.2 H (0.6-2.4) K/uL [place] # (Auto) 0.6 (0.0-0.8) K/uL Eos # (Auto) 0.2 (0.0-0.7) K/uL Baso # (Auto) 0.1 (0.0-0.1) K/uL Nucleated RBC % 0.0 /100WBC Nucleated RBCs # 0 K/uL Sodium 144 (136-146) mmol/L Potassium 3.8 (3.5-5.1) mmol/L Chloride 119 H (98-110) mmol/L Carbon Dioxide 19 L (21-31) mmol/L BUN 28 H (6.0-23.0) mg/dL Creatinine 1.0 (0.6-1.5) mg/dL Est Cr Clr Drug Dosing 34.46 mL/min Estimated GFR (MDRD) 53.5 ml/min Glucose 78 (60-110) mg/dL POC Glucose 72 (60-110) mg/dL Calcium 7.6 L (8.8-10.8) mg/dL Med Orders - Current: Current Medications Bisacodyl (Dulcolax) 20 mg PO ASDIRECTED [facility] Last Admin: 11/05/16 13:15 Dose: 20 mg Carvedilol (Coreg) 3.125 mg PO BID [facility] Last Admin: 11/07/16 08:55 Dose: 3.125 mg Cyclobenzaprine HCl (Flexeril) 5 mg PO Q8H PRN PRN Reason: Muscle Spam Last Admin: 11/06/16 18:31 Dose: 5 mg Gabapentin (Neurontin) 100 mg PO TID [facility] Last Admin: 11/07/16 05:57 Dose: 100 mg Pantoprazole Sodium 80 mg/ (Sodium Chloride) 100 mls @ 10 mls/hr IV Q10H [facility] Last Admin: 11/07/16 02:25 Dose: 10 mls/hr Sodium Chloride (Normal Saline) 1,000 mls @ 125 mls/hr IV ASDIRECTED [facility] Last Admin: 11/07/16 07:54 Dose: 125 mls/hr Insulin Aspart (Novolog) 0 unit SUBCUT Q6H [facility] PRN Reason: Protocol Last Admin: 11/07/16 07:20 Dose: Not Given Isosorbide Mononitrate (Imdur) 60 mg PO DAILY [facility] Last Admin: 11/07/16 08:55 Dose: 60 mg Lisinopril (Prinivil) 20 mg PO DAILY [facility] Last Admin: 11/07/16 08:55 Dose: 20 mg Morphine Sulfate (Morphine) 2 mg IVPUSH Q4H PRN PRN Reason: Pain Last Admin: 11/07/16 06:13 Dose: 2 mg Tramadol HCl (Ultram) 50 mg PO Q4H PRN PRN Reason: Pain (severe 7-10) Last Admin: 11/06/16 04:32 Dose: 50 mg Discontinued Medications Fentanyl (Sublimaze) Confirm Administered Dose 100 mcg .ROUTE .STK-MED ONE Stop: 11/06/16 12:32 Glycopyrrolate () Confirm Administered Dose 1 mg .ROUTE .STK-MED ONE Stop: 11/06/16 13:33 Sodium Chloride (Normal Saline) 1,000 mls @ 999 mls/hr IV .Bolus ONE Stop: 11/04/16 11:22 Last Admin: 11/04/16 10:43 Dose: 999 mls/hr Lidocaine (Xylocaine-Mpf 2%) Confirm Administered Dose 5 ml .ROUTE .STK-MED ONE Stop: 11/06/16 12:32 Lidocaine HCl (Xylocaine-Mpf 1%) Confirm Administered Dose 5 ml .ROUTE .STK-MED ONE Stop: 11/05/16 09:36 Metoprolol Tartrate (Lopressor) Confirm Administered Dose 5 mg .ROUTE .STK-MED ONE Stop: 11/05/16 10:11 Pantoprazole Sodium (Protonix Iv) 80 mg IVPUSH .BOLUS ONE Stop: 11/04/16 10:59 Last Admin: 11/04/16 11:31 Dose: 80 mg Polyethylene Glycol (Miralax) 119 gm PO ONETIME ONE Stop: 11/05/16 15:01 Last Admin: 11/05/16 15:06 Dose: 119 gm Polyethylene Glycol (Miralax) 119 gm PO ONETIME ONE Stop: 11/05/16 18:01 Last Admin: 11/05/16 19:13 Dose: 119 gm Potassium Chloride (Klor-Con M20) 40 meq PO ONETIME ONE Stop: 11/06/16 08:56 Last Admin: 11/06/16 08:58 Dose: 40 meq Propofol (Diprivan 20 Ml) Confirm Administered Dose 200 mg .ROUTE .STK-MED ONE Stop: 11/05/16 09:34 Propofol (Diprivan 20 Ml) Confirm Administered Dose 200 mg .ROUTE .STK-MED ONE Stop: 11/06/16 10:02 Propofol (Diprivan 20 Ml) Confirm Administered Dose 400 mg .ROUTE .STK-MED ONE Stop: 11/06/16 12:32 Propofol (Diprivan 20 Ml) Confirm Administered Dose 200 mg .ROUTE .STK-MED ONE Stop: 11/06/16 13:52 Propofol (Diprivan 20 Ml) Confirm Administered Dose 200 mg .ROUTE .STK-MED ONE Stop: 11/06/16 14:17 - Exam General: alert, oriented Lungs: Clear to auscultation, Normal respiratory effort Cardiovascular: Regular Rate, Regular Rhythm Abdomen: soft, no tenderness, no distension Extremities: no edema Skin: warm, dry, intact - Problem List Review Problem List Initiated/Reviewed/Updated: Yes - My Orders Last 24 Hours: My Active Orders 11/06/16 14:55 Morphine 2 mg IVPUSH Q4H PRN 11/06/16 18:00 Isosorbide Mononitrate [Imdur] 60 mg PO DAILY 11/06/16 Dinner NPO Now [Nothing per Oral Now Diet] [DIET] 11/07/16 12:00 Blood Glucose Check, Bedside [RC] Q6HRRT 11/07/16 15:00 CBC W/O DIFF,HEMOGRAM [HEME] Q8H 11/07/16 23:00 CBC W/O DIFF,HEMOGRAM [HEME] Q8H 11/08/16 07:00 CBC W/O DIFF,HEMOGRAM [HEME] Q8H - Plan Plan:: 81 yo female admitted with GI bleed. EGD reported gastritis, Colonoscopy reported no source of bleed with dark stool comming from terminal ileium. tagged blood cell scan was negative Hgb 9.1 s/p 4 units since admission. Will continue protonix drip. willl continue to trend Hgb Hypertension: coreg and lisinopril resumed.
--- NOTE | 2016-11-07 13:39 | PCM.SN ---
- Free Text/Narrative Note: Patient is a 81-year-old female who presented on Sunday with an acute GI bleed. The patient has received transfusions throughout her stay including 2 units yesterday. The patient underwent a diagnostic colonoscopy yesterday that showed black tarry stool throughout the colon but no evidence of an obstructing lesion or an acute bleeding source. The patient's hemoglobin yesterday was 12.3 this morning it's down again to 9.1. A tagged red blood cell scan was performed that showed no source of bleeding. Given that the patient's hemoglobin keeps dropping and she continues to have bloody bowel movements, I believe she should be transferred to [place] for further management. I'm concerned that her bleed is somewhere within the small bowel and we do not have the resources to investigate this further. This plan was discussed with her primary care provider Dr. Derick Mendieta. Please call with any questions or concerns.
--- NOTE | 2016-11-07 14:00 | NM ---
EXAMINATION: NM GI bleeding study HISTORY: Blood loss COMPARISON: CT dated 11/04/2016 TECHNIQUE: Planar images were obtained of the abdomen following the administration of 19.4 mCi of te chnetium 99 M ultra tag labeled RBCs. FINDINGS: There is intravascular distribution of radiotracer. A small amount of activity is noted wi thin the stomach. This is nonpalpable. No mobile activity is identified to suggest a GI bleed. IMPRESSION: 1. No scintigraphic evidence of a GI bleed.
[2016-11-07] MEDS ORDERED: Dextrose 5%-0.45% NaCl 1,000 ML IV SCH (14:15)
--- NOTE | 2016-11-07 14:31 | PCM.DCSUM1 ---
Discharge Summary - Discharge Data Discharge Date: 11/07/16 Discharge Disposition: DC/Tfer to Acute Hospital 02 Condition: Good - Patient Summary/Data Operative Procedure(s) Performed: Diagnostic colonoscopy Hospital Course: 81 yo female with pmh of hypertenison, chornic back pain, borderline DM, and chronic kidney disease who was admitted for acute GI bleed. She presented with dizziness, epigastric pain, and melanotic stools with dark red blood mixed in stool. In the ED she was noted to have blood pressure in the 90s systolic. After one liter bolus her blood pressure increased to 110 systolic. Hgb after rescucitation dropped to 8.2. She was transfused two units pRBCs. The following day she underwent EGD which revealed gastritis but no source of bleeding. On 11/06/16 she had colonoscopy with no source of bleeding. Today she had a tagged bleeding scan which was negative. Since admission she has been transfused four units of pRBC and continues to have drops in her Hgb and dark red stools. Dr. Neal our general surgeon has recommend transfer for GI consultation. Hgb was 9.1 today so will transfuse another unit prior to transfer. I called Dr. Escalera at [facility] who has accepted the patient. Ground transportation is being arranged. - Discharge Plan Home Medications: Home Meds Verapamil HCl [Verapamil ER] 180 mg PO DAILY 05/10/14 [History] traMADol HCl [Tramadol HCl] 50 - 100 mg PO Q4HR PRN 05/10/14 [History] Cyclobenzaprine [Flexeril] 5 mg PO Q8H PRN 02/01/16 [History] Isosorbide Mononitrate [Imdur] 60 mg PO DAILY #30 tab.er 02/01/16 [Rx] Lisinopril 20 mg PO DAILY 02/01/16 [History] Gabapentin [Neurontin] 100 mg PO TID 06/08/16 [History] Carvedilol 3.125 mg PO BID 11/04/16 [History] Docusate Sodium 100 mg PO BID 11/04/16 [History] Furosemide [Lasix] 20 mg PO DAILY 11/04/16 [History] [place]-3 Fatty Acids [Fish Oil] 1,000 mg PO DAILY 11/04/16 [History] Pantoprazole [ProTONIX] 40 mg PO ACBREAKFAST 11/04/16 [History] oxyCODONE HCl [Oxycodone HCl] 20 mg PO BID 11/04/16 [History] Forms: ED Department Discharge Referrals: PCP,None [Primary Care Provider] - - Patient Data Vitals - Most Recent: Last Vital Signs Temp 36.7 C 11/07/16 08:00 Pulse 85 11/07/16 08:55 Resp 16 11/07/16 08:00 BP 172/83 H 11/07/16 08:55 Pulse Ox 97 11/07/16 08:00 Weight - Most Recent: 59.5 kg I&O - Last 24 hours: Intake & Output 11/06/16 11/07/16 11/07/16 22:59 06:59 14:59 Intake Total 2678 1120 Output Total 1450 1350 Balance 1228 -230 Lab Results - Last 24 hrs: Laboratory Results - last 24 hr 11/06/16 11/07/16 11/07/16 Range/Units 16:34 01:06 04:12 WBC 8.49 (4.0-11.0) K/uL RBC 3.10 L (4.30-5.90) M/uL Hgb 12.3 9.1 L (12.0-16.0) g/dL Hct 35.6 L 27.1 L (36.0-46.0) % MCV 87.4 (80.0-98.0) fL MCH 29.4 (27.0-32.0) pg MCHC 33.6 (31.0-37.0) g/dL RDW Std Deviation 47.6 (28.0-62.0) fl RDW Coeff of Rad 15 (11.0-15.0) % Plt Count 172 (150-400) K/uL MPV 9.30 (7.40-12.00) fL Neut % (Auto) 53.1 (48.0-80.0) % Lymph % (Auto) 37.1 (16.0-40.0) % [place] % (Auto) 7.3 (0.0-15.0) % Eos % (Auto) 1.8 (0.0-7.0) % Baso % (Auto) 0.7 (0.0-1.5) % Neut # (Auto) 4.5 (1.4-5.7) K/uL Lymph # (Auto) 3.2 H (0.6-2.4) K/uL [place] # (Auto) 0.6 (0.0-0.8) K/uL Eos # (Auto) 0.2 (0.0-0.7) K/uL Baso # (Auto) 0.1 (0.0-0.1) K/uL Nucleated RBC % 0.0 /100WBC Nucleated RBCs # 0 K/uL Sodium (136-146) mmol/L Potassium (3.5-5.1) mmol/L Chloride (98-110) mmol/L Carbon Dioxide (21-31) mmol/L BUN (6.0-23.0) mg/dL Creatinine (0.6-1.5) mg/dL Est Cr Clr Drug Dosing mL/min Estimated GFR (MDRD) ml/min Glucose (60-110) mg/dL POC Glucose 72 (60-110) mg/dL Calcium (8.8-10.8) mg/dL 11/07/16 11/07/16 11/07/16 Range/Units 04:12 06:46 13:56 WBC (4.0-11.0) K/uL RBC (4.30-5.90) M/uL Hgb (12.0-16.0) g/dL Hct (36.0-46.0) % MCV (80.0-98.0) fL MCH (27.0-32.0) pg MCHC (31.0-37.0) g/dL RDW Std Deviation (28.0-62.0) fl RDW Coeff of Rad (11.0-15.0) % Plt Count (150-400) K/uL MPV (7.40-12.00) fL Neut % (Auto) (48.0-80.0) % Lymph % (Auto) (16.0-40.0) % [place] % (Auto) (0.0-15.0) % Eos % (Auto) (0.0-7.0) % Baso % (Auto) (0.0-1.5) % Neut # (Auto) (1.4-5.7) K/uL Lymph # (Auto) (0.6-2.4) K/uL [place] # (Auto) (0.0-0.8) K/uL Eos # (Auto) (0.0-0.7) K/uL Baso # (Auto) (0.0-0.1) K/uL Nucleated RBC % /100WBC Nucleated RBCs # K/uL Sodium 144 (136-146) mmol/L Potassium 3.8 (3.5-5.1) mmol/L Chloride 119 H (98-110) mmol/L Carbon Dioxide 19 L (21-31) mmol/L BUN 28 H (6.0-23.0) mg/dL Creatinine 1.0 (0.6-1.5) mg/dL Est Cr Clr Drug Dosing 34.46 mL/min Estimated GFR (MDRD) 53.5 ml/min Glucose 78 (60-110) mg/dL POC Glucose 72 61 (60-110) mg/dL Calcium 7.6 L (8.8-10.8) mg/dL Med Orders - Current: Current Medications Bisacodyl (Dulcolax) 20 mg PO ASDIRECTED [facility] Last Admin: 11/05/16 13:15 Dose: 20 mg Carvedilol (Coreg) 3.125 mg PO BID [facility] Last Admin: 11/07/16 08:55 Dose: 3.125 mg Cyclobenzaprine HCl (Flexeril) 5 mg PO Q8H PRN PRN Reason: Muscle Spam Last Admin: 11/06/16 18:31 Dose: 5 mg Gabapentin (Neurontin) 100 mg PO TID [facility] Last Admin: 11/07/16 13:53 Dose: 100 mg Pantoprazole Sodium 80 mg/ (Sodium Chloride) 100 mls @ 10 mls/hr IV Q10H [facility] Last Admin: 11/07/16 13:52 Dose: 10 mls/hr Dextrose/Sodium Chloride (Dextrose 5%-1/2 Ns) 1,000 mls @ 100 mls/hr IV ASDIRECTED [facility] Insulin Aspart (Novolog) 0 unit SUBCUT Q6H [facility] PRN Reason: Protocol Last Admin: 11/07/16 07:20 Dose: Not Given Isosorbide Mononitrate (Imdur) 60 mg PO DAILY [facility] Last Admin: 11/07/16 08:55 Dose: 60 mg Lisinopril (Prinivil) 20 mg PO DAILY [facility] Last Admin: 11/07/16 08:55 Dose: 20 mg Morphine Sulfate (Morphine) 2 mg IVPUSH Q4H PRN PRN Reason: Pain Last Admin: 11/07/16 06:13 Dose: 2 mg Tramadol HCl (Ultram) 50 mg PO Q4H PRN PRN Reason: Pain (severe 7-10) Last Admin: 11/06/16 04:32 Dose: 50 mg Discontinued Medications Fentanyl (Sublimaze) Confirm Administered Dose 100 mcg .ROUTE .STK-MED ONE Stop: 11/06/16 12:32 Glycopyrrolate () Confirm Administered Dose 1 mg .ROUTE .STK-MED ONE Stop: 11/06/16 13:33 Sodium Chloride (Normal Saline) 1,000 mls @ 999 mls/hr IV .Bolus ONE Stop: 11/04/16 11:22 Last Admin: 11/04/16 10:43 Dose: 999 mls/hr Sodium Chloride (Normal Saline) 1,000 mls @ 125 mls/hr IV ASDIRECTED [facility] Last Admin: 11/07/16 07:54 Dose: 125 mls/hr Lidocaine (Xylocaine-Mpf 2%) Confirm Administered Dose 5 ml .ROUTE .STK-MED ONE Stop: 11/06/16 12:32 Lidocaine HCl (Xylocaine-Mpf 1%) Confirm Administered Dose 5 ml .ROUTE .STK-MED ONE Stop: 11/05/16 09:36 Metoprolol Tartrate (Lopressor) Confirm Administered Dose 5 mg .ROUTE .STK-MED ONE Stop: 11/05/16 10:11 Pantoprazole Sodium (Protonix Iv) 80 mg IVPUSH .BOLUS ONE Stop: 11/04/16 10:59 Last Admin: 11/04/16 11:31 Dose: 80 mg Polyethylene Glycol (Miralax) 119 gm PO ONETIME ONE Stop: 11/05/16 15:01 Last Admin: 11/05/16 15:06 Dose: 119 gm Polyethylene Glycol (Miralax) 119 gm PO ONETIME ONE Stop: 11/05/16 18:01 Last Admin: 11/05/16 19:13 Dose: 119 gm Potassium Chloride (Klor-Con M20) 40 meq PO ONETIME ONE Stop: 11/06/16 08:56 Last Admin: 11/06/16 08:58 Dose: 40 meq Propofol (Diprivan 20 Ml) Confirm Administered Dose 200 mg .ROUTE .STK-MED ONE Stop: 11/05/16 09:34 Propofol (Diprivan 20 Ml) Confirm Administered Dose 200 mg .ROUTE .STK-MED ONE Stop: 11/06/16 10:02 Propofol (Diprivan 20 Ml) Confirm Administered Dose 400 mg .ROUTE .STK-MED ONE Stop: 11/06/16 12:32 Propofol (Diprivan 20 Ml) Confirm Administered Dose 200 mg .ROUTE .STK-MED ONE Stop: 11/06/16 13:52 Propofol (Diprivan 20 Ml) Confirm Administered Dose 200 mg .ROUTE .STK-MED ONE Stop: 11/06/16 14:17 *Q Meaningful Use (DIS) - VTE *Q VTE Criteria *Q: - Stroke *Q Stroke Criteria *Q: - AMI *Q AMI Criteria *Q:
[2016-11-07 15:51] VITALS: BP 182/92
== END 2016-11-07 16:10 | DRG 392 ==
LOC: MW.ED 09:04 → MW.MS 12:39 → OBSVTOIN 11-05 23:17
PROVIDERS: ADMIT Internal Medicine; ATTEND Internal Medicine
PROC: 0DJD8ZZ Inspection of Lower Intestinal Tract, Via Natural or Artificial Opening Endoscopic (ICD-10-PCS; principal; 2016-11-06)
PROC: 30233N1 Transfusion of Nonautologous Red Blood Cells into Peripheral Vein, Percutaneous Approach (ICD-10-PCS; 2016-11-06)
PROC: 30233N1 Transfusion of Nonautologous Red Blood Cells into Peripheral Vein, Percutaneous Approach (ICD-10-PCS; 2016-11-07)
DX: K92.2 Gastrointestinal hemorrhage, unspecified (principal); K29.70 Gastritis, unspecified, without bleeding; K44.9 Diaphragmatic hernia without obstruction or gangrene; I12.9 Hypertensive chronic kidney disease with stage 1 through stage 4 chronic kidney disease, or unspecified chronic kidney disease; N18.9 Chronic kidney disease, unspecified; K21.9 Gastro-esophageal reflux disease without esophagitis; E78.00 Pure hypercholesterolemia, unspecified; E03.9 Hypothyroidism, unspecified; R73.03 Prediabetes; Z79.899 Other long term (current) drug therapy; Z88.8 Allergy status to other drugs, medicaments and biological substances; Z88.0 Allergy status to penicillin
CPT/HCPCS: 36415 ×2; 36430 ×4; 43235; 71010; 74176; 80048; 80053; 82962 ×6; 84484 ×4; 85025 ×2; 85027 ×2; 85610; 86850; 86900; 86901; 86920; 86921; 86922; 93005 ×2; 96361; 96374; 99285; A9270 ×14; C9113 ×5; J7030 ×4; J7040 ×5; P9016 ×2; 00740; 00810; 78278; 78278-26; 85014; 85018; 88305; 88312; A9508; J2270; J2704; J3010; J7042

== ENCOUNTER 2019-02-16 21:38 | Observation (INO) | payer MEDICARE, BC, OTHER ==
[2019-02-16] MEDS ORDERED: Sodium Chloride 0.9% 10 ML Syringe FLUSH PRN (21:50)
[2019-02-16] MEDS ORDERED: Sodium Chloride 0.9% 2.5 ML Syringe FLUSH PRN (21:50)
[2019-02-16] MEDS ORDERED: Albuterol/Ipratropium 3.0-0.5 MG/3 ML Neb Soln NEB ONE ×2 (21:50→21:54)
--- NOTE | 2019-02-16 21:54 | EDM.PDOC ---
ED HPI GENERAL MEDICAL PROBLEM - General Chief Complaint: Respiratory Problem Stated Complaint: WHEEZING Time Seen by Provider: 02/16/19 21:39 - History of Present Illness INITIAL COMMENTS - FREE TEXT/NARRATIVE: HISTORY AND PHYSICAL: History of present illness: The patient is an 84-year-old female with a history of hypertension and borderline diabetes chronic back pain chronic kidney disease and asthma, for which she has not had attack for several years, who presents with progressive shortness of breath and wheezing starting this morning and progressing through the day. The patient said that she had a normal day yesterday and she has not had fever chills or upper respiratory tract infections. She said that her symptoms of shortness of breath and wheezing came on gradually and she feels a little congested in her chest but she has not been coughing and has not had a fever today. She has no abdominal pain nausea or vomiting and she has a history of chronic constipation and no change with that today. The patient has no leg pain or swelling and although she takes Lasix she denies that she has had congestive heart failure. She denies any coronary artery disease and says she is not having chest pain currently. She did eat and drink today. The patient says she always sleeps on 2 pillows at night and that did not change last evening and she did not wake up in the middle of the night short of breath. She does currently see that she feels more comfortable sitting upright. Review of systems: As per history of present illness and below otherwise all systems reviewed and negative. Past medical history: As per history of present illness and as reviewed below otherwise noncontributory. Surgical history: As per history of present illness and as reviewed below otherwise noncontributory. Social history: No reported history of drug or alcohol abuse. Family history: As per history of present illness and as reviewed below otherwise noncontributory. Physical exam: General: Well-developed well-nourished female who is speaking in the ED with slight breathlessness but is able to form sentences and O2 sats and vitals are reviewed by me. HEENT: Atraumatic, normocephalic, pupils reactive, negative for conjunctival pallor or scleral icterus, mucous membranes moist, throat clear, neck supple, nontender, trachea midline. Lungs: Bilateral expiratory wheezing with rhonchi and diminished breath sounds in the bases bilaterally, some mild abdominal worker breathing is appreciated, breath sounds equal bilaterally, chest nontender. Heart: S1S2, regular rate and rhythm and no overt murmurs appreciated Abdomen: Soft, nondistended, nontender. Negative for masses or hepatosplenomegaly. Negative for costovertebral tenderness. Pelvis: Stable nontender. Genitourinary: Deferred. Rectal: Deferred. Extremities: Atraumatic, negative for cords or calf pain. Neurovascular unremarkable. No pedal edema or leg asymmetry Neuro: Awake, alert, oriented. Cranial nerves II through XII unremarkable. Cerebellum unremarkable. Motor and sensory unremarkable throughout. Exam nonfocal. Skin: Turgor is normal overall appearance is somewhat pale but there is no diaphoresis Diagnostics: EKG chest x-ray CBC CMP INR troponin BNP UA with reflex Therapeutics: IV O2 monitor duo neb Solu-Medrol Reevaluation the patient is still having some fine expiratory wheezing and O2 sats on room air are still variable anywhere from 92-96%. When she takes deep breaths it goes up and when she is just sitting resting it does go down to 92%. She says she is feeling better but not completely resolved and my concern is about her going home without a nebulizer machine and trying to do activities when she is not completely improved. She is aware of my concerns and is agreeable to observation admission. She and family at bedside with feel more comfortable with this. Her blood pressure has improved spontaneously without intervention. I will discuss this case with Dr. Mendieta for observation admission [id number]: Case was discussed with Dr. Mendieta who agrees with observation admission. Impression: Dyspnea with asthma exacerbation, rule out cardiac wheeze Definitive disposition and diagnosis as appropriate pending reevaluation and review of above. - Related Data Allergies Allergy/AdvReac Type Severity Reaction Status Date / Time codeine Allergy Cannot Verified 02/16/19 21:49 Remember penicillin V Allergy Cannot Verified 02/16/19 21:49 Remember clonidine Allergy Cannot Uncoded 02/16/19 21:49 Remember Home Meds: Home Meds Verapamil HCl [Verapamil ER] 180 mg PO DAILY 05/10/14 [History] traMADol HCl [Tramadol HCl] 50 - 100 mg PO Q4HR PRN 05/10/14 [History] Isosorbide Mononitrate [Imdur] 60 mg PO DAILY #30 tab.er 02/01/16 [Rx] Lisinopril 20 mg PO DAILY 02/01/16 [History] Carvedilol 3.125 mg PO BID 11/04/16 [History] Furosemide [Lasix] 0 mg PO DAILY 11/04/16 [History] [place]-3 Fatty Acids [Fish Oil] 1,000 mg PO DAILY 11/04/16 [History] oxyCODONE HCl [Oxycodone HCl] 20 mg PO BID 11/04/16 [History] Famotidine 20 mg PO DAILY 03/15/18 [History] Metaxalone [Metaxall] 800 mg PO Q6H PRN 03/15/18 [History] Cephalexin [Keflex] 500 mg PO BID 02/16/19 [History] Past Medical History - Past Health History Medical/Surgical History: Denies Medical/Surgical History HEENT History: Reports: Cataract, Impaired Vision Cardiovascular History: Reports: High Cholesterol, Hypertension Respiratory History: Reports: Asthma, Bronchitis, Recurrent, TB Gastrointestinal History: Reports: Cholelithiasis, GERD Genitourinary History: Reports: Chronic Renal Insuffiency Other Genitourinary History: "kidney problems" [employer] History: Reports: Other [employer] History: Hysterectomy Musculoskeletal History: Reports: Fracture, Other (See Below) Other Musculoskeletal History: neck and lumbar fracture, right broken wrist Neurological History: Reports: Headaches, Chronic Psychiatric History: Reports: None Endocrine/Metabolic History: Reports: Other (See Below) Other Endocrine/Metabolic History: borderline diabetes, thyroidectomy Hematologic History: Reports: Blood Transfusion(s) Other Hematologic History: blood transfusion x 1 Oncologic (Cancer) History: Reports: None - Infectious Disease History Infectious Disease History: Reports: Chicken Pox - Past Surgical History HEENT Surgical History: Reports: Cataract Surgery GI Surgical History: Reports: Cholecystectomy Neurological Surgical History: Reports: Lumbar Spine Musculoskeletal Surgical History: Reports: Other (See Below) Social & Family History - Family History Family Medical History: Noncontributory HEENT: Reports: Impaired Vision Musculoskeletal: Reports: Arthritis Oncologic: Reports: Other (See Below) Other Oncologic Family History: stomach - Caffeine Use Caffeine Use: Reports: Tea Caffeine Use Comment: 1cup/day ED ROS GENERAL - Review of Systems Review Of Systems: ROS reveals no pertinent complaints other than HPI. ED EXAM, GENERAL - Physical Exam Exam: See Below (See dictation) Course - Vital Signs Last Recorded V/S: Last Vital Signs Temp 35.8 C 02/16/19 21:38 Pulse 55 L 02/16/19 22:56 Resp 18 02/16/19 22:56 BP 151/79 H 02/16/19 22:56 Pulse Ox 95 02/16/19 22:56 - Orders/Labs/Meds Orders: Active Orders 24 hr Category Date Time Status Patient Status [ADT] Stat ADT 02/16/19 22:59 Ordered Cardiac Monitoring [RC] . DIRECTED Care 02/16/19 21:49 Active Oxygen Therapy, ED [RC] ASDIRECTED Care 02/16/19 21:49 Active Pulse Oximetry [RC] ASDIRECTED Care 02/16/19 21:49 Active RT Aerosol Therapy [RC] ASDIRECTED Care 02/16/19 21:50 Active RT Aerosol Therapy [RC] ASDIRECTED Care 02/16/19 21:54 Active Sodium Chloride 0.9% [Saline Flush] Med 02/16/19 21:50 Active 10 ml FLUSH ASDIRECTED PRN Sodium Chloride 0.9% [Saline Flush] Med 02/16/19 21:50 Active 2.5 ml FLUSH ASDIRECTED PRN Saline Lock Insert [OM.PC] Stat Oth 02/16/19 21:49 Ordered Medication Orders Sodium Chloride (Saline Flush) 10 ml FLUSH ASDIRECTED PRN PRN Reason: Keep Vein Open Sodium Chloride (Saline Flush) 2.5 ml FLUSH ASDIRECTED PRN PRN Reason: Keep Vein Open Labs: Laboratory Tests 02/16/19 02/16/19 02/16/19 Range/Units 21:35 21:35 21:35 WBC 8.08 (4.0-11.0) K/uL RBC 4.34 (4.30-5.90) M/uL Hgb 12.5 (12.0-16.0) g/dL Hct 38.2 (36.0-46.0) % MCV 88.0 (80.0-98.0) fL MCH 28.8 (27.0-32.0) pg MCHC 32.7 (31.0-37.0) g/dL RDW Std Deviation 46.6 (28.0-62.0) fl RDW Coeff of Rad 14 (11.0-15.0) % Plt Count 296 (150-400) K/uL MPV 11.00 (7.40-12.00) fL Neut % (Auto) 40.0 L (48.0-80.0) % Lymph % (Auto) 42.0 H (16.0-40.0) % [place] % (Auto) 13.4 (0.0-15.0) % Eos % (Auto) 3.6 (0.0-7.0) % Baso % (Auto) 1.0 (0.0-1.5) % Neut # (Auto) 3.2 (1.4-5.7) K/uL Lymph # (Auto) 3.4 H (0.6-2.4) K/uL [place] # (Auto) 1.1 H (0.0-0.8) K/uL Eos # (Auto) 0.3 (0.0-0.7) K/uL Baso # (Auto) 0.1 (0.0-0.1) K/uL Nucleated RBC % 0.0 /100WBC Nucleated RBCs # 0 K/uL INR 0.99 Sodium 134 L (136-145) mmol/L Potassium 4.9 (3.5-5.1) mmol/L Chloride 100 (98-107) mmol/L Carbon Dioxide 27.2 (21.0-32.0) mmol/L BUN 29 H (7.0-18.0) mg/dL Creatinine 2.0 H (0.6-1.0) mg/dL Est Cr Clr Drug Dosing 16.36 mL/min Estimated GFR (MDRD) 23.9 ml/min Glucose 101 (74-106) mg/dL Calcium 8.8 (8.5-10.1) mg/dL Total Bilirubin 0.3 (0.2-1.0) mg/dL AST 20 (15-37) IU/L ALT 17 (14-63) IU/L Alkaline Phosphatase 81 (46-116) U/L Troponin I < 0.050 (0.000-0.056) ng/mL B-Natriuretic Peptide (<100) PG/ML Total Protein 8.3 H (6.4-8.2) g/dL Albumin 3.6 (3.4-5.0) g/dL Globulin 4.7 H (2.6-4.0) g/dL Albumin/Globulin Ratio 0.8 L (0.9-1.6) Urine Color Urine Appearance Urine pH (5.0-8.0) Ur Specific [place] (1.001-1.035) Urine Protein (NEGATIVE) mg/dL Urine Glucose (UA) (NEGATIVE) mg/dL Urine Ketones (NEGATIVE) mg/dL Urine Occult Blood (NEGATIVE) Urine Nitrite (NEGATIVE) Urine Bilirubin (NEGATIVE) Urine Urobilinogen (<2.0) EU/dL Ur Leukocyte Esterase (NEGATIVE) Urine RBC (0-2/HPF) Urine WBC (0-5/HPF) Ur Epithelial Cells (NONE-FEW) Urine Bacteria (NEGATIVE) 02/16/19 02/16/19 Range/Units 21:35 22:10 WBC (4.0-11.0) K/uL RBC (4.30-5.90) M/uL Hgb (12.0-16.0) g/dL Hct (36.0-46.0) % MCV (80.0-98.0) fL MCH (27.0-32.0) pg MCHC (31.0-37.0) g/dL RDW Std Deviation (28.0-62.0) fl RDW Coeff of Rad (11.0-15.0) % Plt Count (150-400) K/uL MPV (7.40-12.00) fL Neut % (Auto) (48.0-80.0) % Lymph % (Auto) (16.0-40.0) % [place] % (Auto) (0.0-15.0) % Eos % (Auto) (0.0-7.0) % Baso % (Auto) (0.0-1.5) % Neut # (Auto) (1.4-5.7) K/uL Lymph # (Auto) (0.6-2.4) K/uL [place] # (Auto) (0.0-0.8) K/uL Eos # (Auto) (0.0-0.7) K/uL Baso # (Auto) (0.0-0.1) K/uL Nucleated RBC % /100WBC Nucleated RBCs # K/uL INR Sodium (136-145) mmol/L Potassium (3.5-5.1) mmol/L Chloride (98-107) mmol/L Carbon Dioxide (21.0-32.0) mmol/L BUN (7.0-18.0) mg/dL Creatinine (0.6-1.0) mg/dL Est Cr Clr Drug Dosing mL/min Estimated GFR (MDRD) ml/min Glucose (74-106) mg/dL Calcium (8.5-10.1) mg/dL Total Bilirubin (0.2-1.0) mg/dL AST (15-37) IU/L ALT (14-63) IU/L Alkaline Phosphatase (46-116) U/L Troponin I (0.000-0.056) ng/mL B-Natriuretic Peptide 258 H (<100) PG/ML Total Protein (6.4-8.2) g/dL Albumin (3.4-5.0) g/dL Globulin (2.6-4.0) g/dL Albumin/Globulin Ratio (0.9-1.6) Urine Color YELLOW Urine Appearance CLEAR Urine pH 5.5 (5.0-8.0) Ur Specific [place] <= 1.005 (1.001-1.035) Urine Protein NEGATIVE (NEGATIVE) mg/dL Urine Glucose (UA) NEGATIVE (NEGATIVE) mg/dL Urine Ketones NEGATIVE (NEGATIVE) mg/dL Urine Occult Blood SMALL H (NEGATIVE) Urine Nitrite NEGATIVE (NEGATIVE) Urine Bilirubin NEGATIVE (NEGATIVE) Urine Urobilinogen 0.2 (<2.0) EU/dL Ur Leukocyte Esterase NEGATIVE (NEGATIVE) Urine RBC 1-3 (0-2/HPF) Urine WBC 0-1 (0-5/HPF) Ur Epithelial Cells RARE (NONE-FEW) Urine Bacteria RARE (NEGATIVE) Meds: Medications Generic Name Dose Route Start Last Admin Trade Name Freq PRN Reason Stop Dose Admin Sodium Chloride 10 ml 02/16/19 21:50 Saline Flush FLUSH ASDIRECTED PRN Keep Vein Open Sodium Chloride 2.5 ml 02/16/19 21:50 Saline Flush FLUSH ASDIRECTED PRN Keep Vein Open Discontinued Medications Generic Name Dose Route Start Last Admin Trade Name Freq PRN Reason Stop Dose Admin Albuterol/Ipratropium 3 ml 02/16/19 21:50 02/16/19 21:38 Duoneb 3.0-0.5 Mg/3 Ml NEB 02/16/19 21:51 3 ml ONETIME ONE Administration Albuterol/Ipratropium 3 ml 02/16/19 21:54 02/16/19 21:55 Duoneb 3.0-0.5 Mg/3 Ml NEB 02/16/19 21:55 3 ml ONETIME ONE Administration Methylprednisolone Sodium Succinate 62.5 mg 02/16/19 21:55 02/16/19 22:00 Solu-Medrol IVPUSH 02/16/19 21:56 62.5 mg ONETIME ONE Administration Departure - Departure Time of Disposition: 23:01 Disposition: Refer to Observation Condition: Good Clinical Impression: Dyspnea and respiratory abnormalities Exacerbation of asthma Qualifiers: Asthma severity: mild Asthma persistence: unspecified Qualified Code(s): J45.901 - Unspecified asthma with (acute) exacerbation - Discharge Information Referrals: PCP,None [Primary Care Provider] - Forms: ED Department Discharge - My Orders Last 24 Hours: My Active Orders 02/16/19 21:49 Cardiac Monitoring [RC] . DIRECTED Oxygen Therapy, ED [RC] ASDIRECTED Pulse Oximetry [RC] ASDIRECTED Saline Lock Insert [OM.PC] Stat 02/16/19 21:50 RT Aerosol Therapy [RC] ASDIRECTED Sodium Chloride 0.9% [Saline Flush] 10 ml FLUSH ASDIRECTED PRN Sodium Chloride 0.9% [Saline Flush] 2.5 ml FLUSH ASDIRECTED PRN 02/16/19 21:54 RT Aerosol Therapy [RC] ASDIRECTED 02/16/19 22:59 Patient Status [ADT] Stat - Assessment/Plan Last 24 Hours: My Active Orders 02/16/19 21:49 Cardiac Monitoring [RC] . DIRECTED Oxygen Therapy, ED [RC] ASDIRECTED Pulse Oximetry [RC] ASDIRECTED Saline Lock Insert [OM.PC] Stat 02/16/19 21:50 RT Aerosol Therapy [RC] ASDIRECTED Sodium Chloride 0.9% [Saline Flush] 10 ml FLUSH ASDIRECTED PRN Sodium Chloride 0.9% [Saline Flush] 2.5 ml FLUSH ASDIRECTED PRN 02/16/19 21:54 RT Aerosol Therapy [RC] ASDIRECTED 02/16/19 22:59 Patient Status [ADT] Stat
[2019-02-16] MEDS ORDERED: methylPREDNISolone Sodium Succinate 125 MG/2 ML SDV IVPUSH ONE (21:55)
[2019-02-16 22:18] LABS: BLOOD UREA NITROGEN,BUN 29 mg/dL (7.0-18.0); CARBON DIOXIDE,CO2 27.2 mmol/L (21.0-32.0); CHLORIDE,CL 100 mmol/L (98-107); GLUCOSE RANDOM 101 mg/dL (74-106); POTASSIUM,K 4.9 mmol/L (3.5-5.1); SODIUM,NA 134 mmol/L (136-145)
--- NOTE | 2019-02-16 22:18 | CR ---
INDICATION: Shortness of breath and wheezing TECHNIQUE: Chest 1 views COMPARISON: November 04, 2016 FINDINGS: Cardiovascular and mediastinum: Heart size and vasculature are normal in caliber and appearance. Lungs and pleural spaces: Lungs are clear. No sign of infiltrate or mass. No sign of pleural effusion. No pneumothorax. Bones and soft tissues: No significant findings. IMPRESSION: No acute findings and no significant changes from the prior exam. Dictated by Ankit Burt MD @ Feb 16 2019 10:15PM Signed by Dr. Ankit Burt @ Feb 16 2019 10:16PM
[2019-02-17] MEDS ORDERED: Albuterol/Ipratropium 3.0-0.5 MG/3 ML Neb Soln NEB SCH (02:00)
[2019-02-17] MEDS ORDERED: methylPREDNISolone Sodium Succinate 125 MG/2 ML SDV IVPUSH PRN (02:04)
[2019-02-17] MEDS: Acetaminophen 325 MG Tab PO PRN ×2 (04:18→23:21)
[2019-02-17] MEDS: Albuterol/Ipratropium 3.0-0.5 MG/3 ML Neb Soln NEB SCH ×3 (06:08→17:59)
[2019-02-17 06:41] LABS: CARBON DIOXIDE,CO2 25.7 mmol/L (21.0-32.0); POTASSIUM,K 4.6 mmol/L (3.5-5.1)
--- NOTE | 2019-02-17 07:56 | PCM.HP.2 ---
H&P History of Present Illness - General Date of Service: 02/17/19 Admit Problem/Dx: Admission Diagnosis/Problem Admission Diagnosis/Problem Dyspnea Source of Information: Patient History Limitations: Reports: No Limitations - History of Present Illness Initial Comments - Free Text/Narative: This 84 year old female with pmh of HTN, borderline DM, CKD, chronic back pain and previous history of asthma presented to the ED with complaints of wheezing and shortness of breath. She reports she was getting ready for bed and felt very short of breath and noticed significant wheezing. She denies fevers and chills, no productive cough. She denies chest pain or palpitations. She reports she hasn't had inhalers or asthma attack for many years. She denies she has inhalers or nebulizers at home. She denies history of smoking or exposure to second hand smoke. She denies previous triggers when asthma affected her. She denies alcohol use and no recreational drug use. In the ED, no leukocytosis noted. BUN cr elevated but at baseline. UA negative. CXR negative. HR and BP stable. She was treated with Solu-medrol and Duonebs in the am. PCP, Counts include 234 beds at the [facility]. Left Anterior Knee Pain Score (Numeric/FACES): 5 - Related Data Allergies/Adverse Reactions: Allergies Allergy/AdvReac Type Severity Reaction Status Date / Time No Known Allergies Allergy Verified 02/17/19 00:27 Home Medications: Home Meds Verapamil HCl [Verapamil ER] 180 mg PO DAILY 05/10/14 [History] traMADol HCl [Tramadol HCl] 50 - 100 mg PO Q4HR PRN 05/10/14 [History] Isosorbide Mononitrate [Imdur] 60 mg PO DAILY #30 tab.er 02/01/16 [Rx] Lisinopril 20 mg PO DAILY 02/01/16 [History] Carvedilol 3.125 mg PO BID 11/04/16 [History] Furosemide [Lasix] 20 mg PO DAILY 11/04/16 [History] Ralston-3 Fatty Acids [Fish Oil] 1,000 mg PO DAILY 11/04/16 [History] Famotidine 20 mg PO DAILY 03/15/18 [History] Metaxalone [Metaxall] 800 mg PO Q6H PRN 03/15/18 [History] Cephalexin [Keflex] 500 mg PO BID 02/16/19 [History] Oxycodone Myristate [Xtampza ER] 27 mg PO Q12H 02/17/19 [History] Pregabalin 25 mg PO BID@08,12 02/17/19 [History] Pregabalin [Lyrica] 50 mg PO BEDTIME 02/17/19 [History] Past Medical History - Past Health History Medical/Surgical History: Denies Medical/Surgical History HEENT History: Reports: Cataract, Impaired Vision Cardiovascular History: Reports: High Cholesterol, Hypertension. 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 Denies: CVA, TIA Psychiatric History: Reports: None Endocrine/Metabolic History: Reports: Other (See Below) Other Endocrine/Metabolic History: borderline diabetes, thyroidectomy Hematologic History: Reports: Blood Transfusion(s) Other Hematologic History: blood transfusion x 1 Oncologic (Cancer) History: Reports: None - Infectious Disease History Infectious Disease History: Reports: Chicken Pox - Past Surgical History HEENT Surgical History: Reports: Cataract Surgery GI Surgical History: Reports: Cholecystectomy Endocrine Surgical History: Reports: Thyroidectomy Neurological Surgical History: Reports: Lumbar Spine Musculoskeletal Surgical History: Reports: Other (See Below) Dermatological Surgical History: Reports: None Social & Family History - Family History Family Medical History: Noncontributory HEENT: Reports: Impaired Vision Musculoskeletal: Reports: Arthritis Oncologic: Reports: Other (See Below) Other Oncologic Family History: stomach - Tobacco Use Smoking Status *Q: Never Smoker Used Tobacco, but Quit: Yes Month/Year Tobacco Last Used: "60 years ago" Second Hand Smoke Exposure: No - Caffeine Use Caffeine Use: Reports: Coffee, Soda, Tea Caffeine Use Comment: 1cup/day - Recreational Drug Use Recreational Drug Use: No - Living Situation & Occupation Living situation: Reports: with Family Occupation: Retired H&P Review of Systems - Review of Systems: Review Of Systems: See Below General: Reports: No Symptoms. Denies: Fever, Chills, Malaise HEENT: Reports: No Symptoms. Denies: Headaches, Sinus Congestion, Sore Throat Pulmonary: Reports: Shortness of Breath, Wheezing. Denies: Cough, Sputum Cardiovascular: Reports: Dyspnea on Exertion. Denies: Chest Pain, Palpitations , Edema Gastrointestinal: Reports: No Symptoms. Denies: Abdominal Pain, Black Stool, Bloody Stool, Decreased Appetite, Nausea, Vomiting Genitourinary: Reports: No Symptoms. Denies: Dysuria, Frequency, Burning Skin: Reports: No Symptoms. Denies: Cyanosis Psychiatric: Reports: No Symptoms Neurological: Reports: No Symptoms Hematologic/Lymphatic: Reports: No Symptoms Immunologic: Reports: No Symptoms Exam - Exam Exam: See Below - Vital Signs Vital Signs: Last Vital Signs Temp 97.7 F 02/17/19 04:00 Pulse 73 02/17/19 04:00 Resp 18 02/17/19 04:00 BP 167/74 H 02/17/19 04:00 Pulse Ox 94 L 02/17/19 04:00 Weight: 69.581 kg - Exam General: Alert, Oriented, Cooperative HEENT: Conjunctiva Clear, Mucosa Moist & Wesley, Posterior Pharynx Clear Lungs: Clear to Auscultation, Normal Respiratory Effort. No: Crackles, Wheezing Cardiovascular: Regular Rate, Regular Rhythm GI/Abdominal Exam: Normal Bowel Sounds, Soft, Non-Tender Extremities: Normal Inspection, Normal Range of Motion, Non-Tender, No Pedal Edema Neuro Extensive - Mental Status: Alert, Oriented x3, Memory Loss-Remote Events ( reports she has some memory issues, these are not new) Neuro Extensive - Motor, Sensory, Reflexes: CN II-XII Intact Psychiatric: Alert, Normal Affect, Normal Mood - Patient Data Lab Results Last 24 hrs: Laboratory Results - last 24 hr 02/16/19 02/16/19 02/16/19 Range/Units 21:35 21:35 21:35 WBC 8.08 (4.0-11.0) K/uL RBC 4.34 (4.30-5.90) M/uL Hgb 12.5 (12.0-16.0) g/dL Hct 38.2 (36.0-46.0) % MCV 88.0 (80.0-98.0) fL MCH 28.8 (27.0-32.0) pg MCHC 32.7 (31.0-37.0) g/dL RDW Std Deviation 46.6 (28.0-62.0) fl RDW Coeff of Rad 14 (11.0-15.0) % Plt Count 296 (150-400) K/uL MPV 11.00 (7.40-12.00) fL Neut % (Auto) 40.0 L (48.0-80.0) % Lymph % (Auto) 42.0 H (16.0-40.0) % [place] % (Auto) 13.4 (0.0-15.0) % Eos % (Auto) 3.6 (0.0-7.0) % Baso % (Auto) 1.0 (0.0-1.5) % Neut # (Auto) 3.2 (1.4-5.7) K/uL Lymph # (Auto) 3.4 H (0.6-2.4) K/uL [place] # (Auto) 1.1 H (0.0-0.8) K/uL Eos # (Auto) 0.3 (0.0-0.7) K/uL Baso # (Auto) 0.1 (0.0-0.1) K/uL Nucleated RBC % 0.0 /100WBC Nucleated RBCs # 0 K/uL INR 0.99 Sodium 134 L (136-145) mmol/L Potassium 4.9 (3.5-5.1) mmol/L Chloride 100 (98-107) mmol/L Carbon Dioxide 27.2 (21.0-32.0) mmol/L BUN 29 H (7.0-18.0) mg/dL Creatinine 2.0 H (0.6-1.0) mg/dL Est Cr Clr Drug Dosing 16.36 mL/min Estimated GFR (MDRD) 23.9 ml/min Glucose 101 (74-106) mg/dL Calcium 8.8 (8.5-10.1) mg/dL Total Bilirubin 0.3 (0.2-1.0) mg/dL AST 20 (15-37) IU/L ALT 17 (14-63) IU/L Alkaline Phosphatase 81 (46-116) U/L Troponin I < 0.050 (0.000-0.056) ng/mL B-Natriuretic Peptide (<100) PG/ML Total Protein 8.3 H (6.4-8.2) g/dL Albumin 3.6 (3.4-5.0) g/dL Globulin 4.7 H (2.6-4.0) g/dL Albumin/Globulin Ratio 0.8 L (0.9-1.6) Urine Color Urine Appearance Urine pH (5.0-8.0) Ur Specific [place] (1.001-1.035) Urine Protein (NEGATIVE) mg/dL Urine Glucose (UA) (NEGATIVE) mg/dL Urine Ketones (NEGATIVE) mg/dL Urine Occult Blood (NEGATIVE) Urine Nitrite (NEGATIVE) Urine Bilirubin (NEGATIVE) Urine Urobilinogen (<2.0) EU/dL Ur Leukocyte Esterase (NEGATIVE) Urine RBC (0-2/HPF) Urine WBC (0-5/HPF) Ur Epithelial Cells (NONE-FEW) Urine Bacteria (NEGATIVE) 02/16/19 02/16/19 02/17/19 Range/Units 21:35 22:10 05:55 WBC 4.71 (4.0-11.0) K/uL RBC 4.12 L (4.30-5.90) M/uL Hgb 11.7 L (12.0-16.0) g/dL Hct 36.2 (36.0-46.0) % MCV 87.9 (80.0-98.0) fL MCH 28.4 (27.0-32.0) pg MCHC 32.3 (31.0-37.0) g/dL RDW Std Deviation 45.9 (28.0-62.0) fl RDW Coeff of Rad 14 (11.0-15.0) % Plt Count 282 (150-400) K/uL MPV 9.90 (7.40-12.00) fL Neut % (Auto) 85.2 H (48.0-80.0) % Lymph % (Auto) 14.0 L (16.0-40.0) % [place] % (Auto) 0.4 (0.0-15.0) % Eos % (Auto) 0.0 (0.0-7.0) % Baso % (Auto) 0.4 (0.0-1.5) % Neut # (Auto) 4.0 (1.4-5.7) K/uL Lymph # (Auto) 0.7 (0.6-2.4) K/uL [place] # (Auto) 0.0 (0.0-0.8) K/uL Eos # (Auto) 0.0 (0.0-0.7) K/uL Baso # (Auto) 0.0 (0.0-0.1) K/uL Nucleated RBC % 0.0 /100WBC Nucleated RBCs # 0 K/uL INR Sodium (136-145) mmol/L Potassium (3.5-5.1) mmol/L Chloride (98-107) mmol/L Carbon Dioxide (21.0-32.0) mmol/L BUN (7.0-18.0) mg/dL Creatinine (0.6-1.0) mg/dL Est Cr Clr Drug Dosing mL/min Estimated GFR (MDRD) ml/min Glucose (74-106) mg/dL Calcium (8.5-10.1) mg/dL Total Bilirubin (0.2-1.0) mg/dL AST (15-37) IU/L ALT (14-63) IU/L Alkaline Phosphatase (46-116) U/L Troponin I (0.000-0.056) ng/mL B-Natriuretic Peptide 258 H (<100) PG/ML Total Protein (6.4-8.2) g/dL Albumin (3.4-5.0) g/dL Globulin (2.6-4.0) g/dL Albumin/Globulin Ratio (0.9-1.6) Urine Color YELLOW Urine Appearance CLEAR Urine pH 5.5 (5.0-8.0) Ur Specific [place] <= 1.005 (1.001-1.035) Urine Protein NEGATIVE (NEGATIVE) mg/dL Urine Glucose (UA) NEGATIVE (NEGATIVE) mg/dL Urine Ketones NEGATIVE (NEGATIVE) mg/dL Urine Occult Blood SMALL H (NEGATIVE) Urine Nitrite NEGATIVE (NEGATIVE) Urine Bilirubin NEGATIVE (NEGATIVE) Urine Urobilinogen 0.2 (<2.0) EU/dL Ur Leukocyte Esterase NEGATIVE (NEGATIVE) Urine RBC 1-3 (0-2/HPF) Urine WBC 0-1 (0-5/HPF) Ur Epithelial Cells RARE (NONE-FEW) Urine Bacteria RARE (NEGATIVE) 02/17/19 Range/Units 05:55 WBC (4.0-11.0) K/uL RBC (4.30-5.90) M/uL Hgb (12.0-16.0) g/dL Hct (36.0-46.0) % MCV (80.0-98.0) fL MCH (27.0-32.0) pg MCHC (31.0-37.0) g/dL RDW Std Deviation (28.0-62.0) fl RDW Coeff of Rad (11.0-15.0) % Plt Count (150-400) K/uL MPV (7.40-12.00) fL Neut % (Auto) (48.0-80.0) % Lymph % (Auto) (16.0-40.0) % [place] % (Auto) (0.0-15.0) % Eos % (Auto) (0.0-7.0) % Baso % (Auto) (0.0-1.5) % Neut # (Auto) (1.4-5.7) K/uL Lymph # (Auto) (0.6-2.4) K/uL [place] # (Auto) (0.0-0.8) K/uL Eos # (Auto) (0.0-0.7) K/uL Baso # (Auto) (0.0-0.1) K/uL Nucleated RBC % /100WBC Nucleated RBCs # K/uL INR Sodium 136 (136-145) mmol/L Potassium 4.6 (3.5-5.1) mmol/L Chloride 102 (98-107) mmol/L Carbon Dioxide 25.7 (21.0-32.0) mmol/L BUN 28 H (7.0-18.0) mg/dL Creatinine 1.9 H (0.6-1.0) mg/dL Est Cr Clr Drug Dosing 17.23 mL/min Estimated GFR (MDRD) 25.3 ml/min Glucose 183 H (74-106) mg/dL Calcium 8.6 (8.5-10.1) mg/dL Total Bilirubin (0.2-1.0) mg/dL AST (15-37) IU/L ALT (14-63) IU/L Alkaline Phosphatase (46-116) U/L Troponin I (0.000-0.056) ng/mL B-Natriuretic Peptide (<100) PG/ML Total Protein (6.4-8.2) g/dL Albumin (3.4-5.0) g/dL Globulin (2.6-4.0) g/dL Albumin/Globulin Ratio (0.9-1.6) Urine Color Urine Appearance Urine pH (5.0-8.0) Ur Specific [place] (1.001-1.035) Urine Protein (NEGATIVE) mg/dL Urine Glucose (UA) (NEGATIVE) mg/dL Urine Ketones (NEGATIVE) mg/dL Urine Occult Blood (NEGATIVE) Urine Nitrite (NEGATIVE) Urine Bilirubin (NEGATIVE) Urine Urobilinogen (<2.0) EU/dL Ur Leukocyte Esterase (NEGATIVE) Urine RBC (0-2/HPF) Urine WBC (0-5/HPF) Ur Epithelial Cells (NONE-FEW) Urine Bacteria (NEGATIVE) Result Diagrams: 02/17/19 05:55 02/17/19 05:55 *Q Meaningful Use (ADM) - VTE Risk Assess *Q Each Risk Factor Represents 1 Point: Abnormal Pulmonary Function (COPD) Total Score 1 Point Risk Factors: 1 Each Risk Factor Represents 2 Points: None Total Score 2 Point Risk Factors: 0 Each Risk Factor Represents 3 Points: Age 75 Years or Greater Total Score 3 Point Risk Factors: 3 Each Risk Factor Represents 5 Points: None Total Score 5 Point Risk Factors: 0 Venous Thromboembolism Risk Factor Score *Q: 4 - Problem List (1) Exacerbation of asthma SNOMED Code(s): 155940791 ICD Code: J45.901 - UNSPECIFIED ASTHMA WITH (ACUTE) EXACERBATION Status: Acute Current Visit: Yes Qualifiers: Asthma severity: mild Asthma persistence: unspecified Qualified Code(s): J45.901 - Unspecified asthma with (acute) exacerbation (2) Neuropathic pain, leg, bilateral SNOMED Code(s): 11907164, 775904137 ICD Code: G57.93 - UNSPECIFIED MONONEUROPATHY OF BILATERAL LOWER LIMBS Status: Chronic Current Visit: No (3) Borderline diabetes mellitus SNOMED Code(s): 919487528 ICD Code: R73.09 - OTHER ABNORMAL GLUCOSE Status: Chronic Current Visit: No (4) CKD (chronic kidney disease) SNOMED Code(s): 942765943 ICD Code: N18.9 - CHRONIC KIDNEY DISEASE, UNSPECIFIED Status: Chronic Current Visit: No Qualifiers: Chronic kidney disease stage: unspecified stage Qualified Code(s): N18.9 - Chronic kidney disease, unspecified (5) Chronic back pain SNOMED Code(s): 242282787 ICD Code: M54.9 - DORSALGIA, UNSPECIFIED; G89.29 - OTHER CHRONIC PAIN Status: Chronic Current Visit: No Qualifiers: Back pain location: low back pain Back pain laterality: unspecified Sciatica presence: without sciatica Qualified Code(s): M54.5 - Low back pain; G89.29 - Other chronic pain (6) HTN (hypertension) SNOMED Code(s): 06142927 ICD Code: I10 - ESSENTIAL (PRIMARY) HYPERTENSION Status: Chronic Current Visit: No Qualifiers: Hypertension type: essential hypertension Qualified Code(s): I10 - Essential (primary) hypertension Problem List Initiated/Reviewed/Updated: Yes Orders Last 24hrs: Active Orders 24 hr Category Date Time Status Patient Status [ADT] Stat ADT 02/16/19 22:59 Active Cardiac Monitoring [RC] . DIRECTED Care 02/16/19 21:49 Active Oxygen Therapy [RC] PRN Care 02/17/19 07:54 Ordered Oxygen Therapy, ED [RC] ASDIRECTED Care 02/16/19 21:49 Active Pulse Oximetry [RC] ASDIRECTED Care 02/16/19 21:49 Active RT Aerosol Therapy [RC] ASDIRECTED Care 02/16/19 21:50 Active RT Aerosol Therapy [RC] ASDIRECTED Care 02/16/19 21:54 Active RT Aerosol Therapy [RC] ASDIRECTED Care 02/17/19 01:56 Inactive RT Aerosol Therapy [RC] ASDIRECTED Care 02/17/19 05:47 Active Telemetry Monitoring [Cardiac Monitoring] [RC] Q8H Care 02/17/19 00:35 Active Up With Assistance [RC] ASDIRECTED Care 02/17/19 07:54 Ordered VTE/DVT Education [RC] PER UNIT ROUTINE Care 02/17/19 07:54 Ordered Vital Signs [RC] Q4H Care 02/17/19 07:54 Ordered Regular Diet [DIET] Diet 02/17/19 Breakfast Active Acetaminophen [Tylenol] Med 02/17/19 02:00 Active 650 mg PO Q6H PRN Albuterol/Ipratropium [DuoNeb 3.0-0.5 MG/3 ML] Med 02/17/19 06:00 Active 3 ml NEB Q6HRRT Sodium Chloride 0.9% [Saline Flush] Med 02/16/19 21:50 Active 10 ml FLUSH ASDIRECTED PRN Sodium Chloride 0.9% [Saline Flush] Med 02/16/19 21:50 Active 2.5 ml FLUSH ASDIRECTED PRN methylPREDNISolone Sod Succ [Solu-MEDROL] Med 02/17/19 08:00 Ordered 125 mg IVPUSH Q12H Obtain Home Medication List [OM.PC] Routine Oth 02/17/19 07:54 Ordered Saline Lock Insert [OM.PC] Stat Oth 02/16/19 21:49 Ordered Resuscitation Status Routine Resus Stat 02/17/19 07:54 Ordered Medication Orders Acetaminophen (Tylenol) 650 mg PO Q6H PRN PRN Reason: Pain Last Admin: 02/17/19 04:18 Dose: 650 mg Albuterol/Ipratropium (Duoneb 3.0-0.5 Mg/3 Ml) 3 ml NEB Q6HRRT YANNI Last Admin: 02/17/19 06:08 Dose: 3 ml Methylprednisolone Sodium Succinate (Solu-Medrol) 125 mg IVPUSH Q12H YANNI Sodium Chloride (Saline Flush) 10 ml FLUSH ASDIRECTED PRN PRN Reason: Keep Vein Open Sodium Chloride (Saline Flush) 2.5 ml FLUSH ASDIRECTED PRN PRN Reason: Keep Vein Open Assessment/Plan Comment:: This 84 year old female admitted with asthma exacerbation 1. Asthma exacerbation: Will give Solumedrol 125 mg this morning, change to Prednisone 40 mg daily. Continue Duonebs. Feeling much improved today. Monitor today, consider discharge this evening. Start Advair 250/50 BID. Consult Respiratory therapy for asthma education. Follow up with PCP and recommend outpatient PFT. 2. HTN: Elevated, no symptoms. Obtian med rec and restart home medications. 3. Borderline DM: Monitor with administration of steroids. VTE prophylaxis: SCDs Dispo: in am - Mortality Measure Prognosis:: Good
[2019-02-17] MEDS ORDERED: methylPREDNISolone Sodium Succinate 125 MG/2 ML SDV IVPUSH SCH (08:00)
[2019-02-17] MEDS: Fluticasone/Salmeterol 250-50 MCG Inhalation Powder 14/Diskus INH SCH ×2 (10:03→21:17)
[2019-02-17] MEDS: Lisinopril 10 MG Tab PO SCH (14:47)
[2019-02-17] MEDS: Pregabalin 25 MG Cap PO SCH (14:48)
[2019-02-17] MEDS: Isosorbide Mononitrate 60 MG Tab.ER PO SCH (14:48)
[2019-02-17] MEDS: Furosemide 20 MG Tab PO SCH (14:48)
[2019-02-17] MEDS: Carvedilol 3.125 MG Tab PO SCH ×2 (14:49→20:35)
[2019-02-17] MEDS: Verapamil 180 MG Tab.ER PO SCH (14:50)
[2019-02-17] MEDS: OXYCODONE MYRISTATE 27 MG PO SCH (14:52)
[2019-02-17] MEDS: traMADol 50 MG Tab PO PRN ×2 (17:28→21:37)
[2019-02-17] MEDS ORDERED: Pregabalin 50 MG Cap PO SCH (21:00)
[2019-02-18] MEDS: Albuterol/Ipratropium 3.0-0.5 MG/3 ML Neb Soln NEB SCH ×3 (00:07→11:26)
[2019-02-18] MEDS: traMADol 50 MG Tab PO PRN ×3 (01:00→11:18)
[2019-02-18] MEDS: OXYCODONE MYRISTATE 27 MG PO SCH (01:33)
[2019-02-18] MEDS: Acetaminophen 325 MG Tab PO PRN (05:15)
[2019-02-18 07:06] LABS: CARBON DIOXIDE,CO2 25.9 mmol/L (21.0-32.0); POTASSIUM,K 3.4 mmol/L (3.5-5.1)
[2019-02-18] MEDS ORDERED: predniSONE 20 MG Tab PO SCH (08:00)
[2019-02-18] MEDS: Pregabalin 25 MG Cap PO SCH ×2 (08:03→11:19)
[2019-02-18] MEDS: Isosorbide Mononitrate 60 MG Tab.ER PO SCH (08:04)
[2019-02-18] MEDS: Carvedilol 3.125 MG Tab PO SCH (08:04)
[2019-02-18] MEDS: Lisinopril 10 MG Tab PO SCH (08:04)
[2019-02-18] MEDS: Furosemide 20 MG Tab PO SCH (08:04)
[2019-02-18 08:05] VITALS: BP 123/81; PULSE 86
[2019-02-18] MEDS: Fluticasone/Salmeterol 250-50 MCG Inhalation Powder 14/Diskus INH SCH (08:05)
[2019-02-18] MEDS: Verapamil 180 MG Tab.ER PO SCH (08:05)
[2019-02-18] MEDS ORDERED: Famotidine 20 MG Tab PO SCH (09:00)
[2019-02-18] MEDS ORDERED: oxyCODONE 5 MG Tab PO ONE (09:11)
--- NOTE | 2019-02-18 10:36 | PCM.DCSUM1 ---
Discharge Summary - Hospital Course Brief History: This 84 year old female with pmh of HTN, borderline DM, CKD, chronic back pain and previous history of asthma presented to the ED with complaints of wheezing and shortness of breath. She reports she was getting ready for bed and felt very short of breath and noticed significant wheezing. She denies fevers and chills, no productive cough. She denies chest pain or palpitations. She reports she hasn't had inhalers or asthma attack for many years. She denies she has inhalers or nebulizers at home. She denies history of smoking or exposure to second hand smoke. She denies previous triggers when asthma affected her. She denies alcohol use and no recreational drug use. In the ED, no leukocytosis noted. BUN cr elevated but at baseline. UA negative. CXR negative. HR and BP stable. She was treated with Solu-medrol and Duonebs in the am. [facility], [facility] Diagnosis: Stroke: No - Discharge Data Discharge Date: 02/18/19 Discharge Disposition: Home, Self-Care 01 Condition: Good - Referral to Home Health Primary Care Physician: PCP None - Discharge Diagnosis/Problem(s) (1) Exacerbation of asthma SNOMED Code(s): 900950932 ICD Code: J45.901 - UNSPECIFIED ASTHMA WITH (ACUTE) EXACERBATION Status: Acute Qualifiers: Asthma severity: mild Asthma persistence: unspecified Qualified Code(s): J45.901 - Unspecified asthma with (acute) exacerbation (2) Neuropathic pain, leg, bilateral SNOMED Code(s): 50837036, 563251019 ICD Code: G57.93 - UNSPECIFIED MONONEUROPATHY OF BILATERAL LOWER LIMBS Status: Chronic (3) Borderline diabetes mellitus SNOMED Code(s): 474085221 ICD Code: R73.09 - OTHER ABNORMAL GLUCOSE Status: Chronic (4) CKD (chronic kidney disease) SNOMED Code(s): 615916883 ICD Code: N18.9 - CHRONIC KIDNEY DISEASE, UNSPECIFIED Status: Chronic Qualifiers: Chronic kidney disease stage: unspecified stage Qualified Code(s): N18.9 - Chronic kidney disease, unspecified (5) Chronic back pain SNOMED Code(s): 382136598 ICD Code: M54.9 - DORSALGIA, UNSPECIFIED; G89.29 - OTHER CHRONIC PAIN Status: Chronic Qualifiers: Back pain location: low back pain Back pain laterality: unspecified Sciatica presence: without sciatica Qualified Code(s): M54.5 - Low back pain; G89.29 - Other chronic pain (6) HTN (hypertension) SNOMED Code(s): 29344724 ICD Code: I10 - ESSENTIAL (PRIMARY) HYPERTENSION Status: Chronic Qualifiers: Hypertension type: essential hypertension Qualified Code(s): I10 - Essential (primary) hypertension - Patient Summary/Data Consults: Consultations 02/17/19 09:37 Consult to Respiratory Therapy [Respiratory Care Assess and Treatment] [CONS] Routine - Patient Instructions Diet: Heart Healthy Diet Activity: As Tolerated Driving: Do Not Drive Showering/Bathing: May Shower Notify Provider of: Fever, Increased Pain, Swelling and Redness, Drainage, Nausea and/or Vomiting - Discharge Plan *PRESCRIPTION DRUG MONITORING PROGRAM REVIEWED*: Not Applicable *COPY OF PRESCRIPTION DRUG MONITORING REPORT IN PATIENT LADONNA: Not Applicable Prescriptions/Med Rec: Albuterol Sulfate [Albuterol Sulfate Hfa] 8.5 gm IH Q4H PRN #1 hfa.aer.ad PRN Reason: shortnessofbreath/wheezing Fluticasone/Salmeterol [Advair 250-50] 1 puff INH BID #1 diskus Home Medications: Home Meds Verapamil HCl [Verapamil ER] 180 mg PO DAILY 05/10/14 [History] traMADol HCl [Tramadol HCl] 50 - 100 mg PO Q4HR PRN 05/10/14 [History] Isosorbide Mononitrate [Imdur] 60 mg PO DAILY #30 tab.er 02/01/16 [Rx] Lisinopril 20 mg PO DAILY 02/01/16 [History] Carvedilol 3.125 mg PO BID 11/04/16 [History] Furosemide [Lasix] 20 mg PO DAILY 11/04/16 [History] [place]-3 Fatty Acids [Fish Oil] 1,000 mg PO DAILY 11/04/16 [History] Famotidine 20 mg PO DAILY 03/15/18 [History] Metaxalone [Metaxall] 800 mg PO Q6H PRN 03/15/18 [History] Cephalexin [Keflex] 500 mg PO BID 02/16/19 [History] Oxycodone Myristate [Xtampza ER] 27 mg PO Q12H 02/17/19 [History] Pregabalin 25 mg PO BID@08,12 02/17/19 [History] Pregabalin [Lyrica] 50 mg PO BEDTIME 02/17/19 [History] Albuterol Sulfate [Albuterol Sulfate Hfa] 8.5 gm IH Q4H PRN #1 hfa.aer.ad [Rx] Fluticasone/Salmeterol [Advair 250-50] 1 puff INH BID #1 diskus 02/18/19 [Rx] Oxygen Therapy Mode: Room Air Patient Handouts: Shortness of Breath, Adult, [id number], Albuterol inhalation aerosol, Asthma, Adult, [id number], Fluticasone; Salmeterol inhalation aerosol Referrals: [facility] [Outside] Rupal Chavez MD [Physician] - 02/25/19 2:00 pm - Discharge Summary/Plan Comment DC Time >30 min.: No Discharge Summary/Plan Comment: Admitting Diagnoses: Asthma Discharge Diagnoses: Asthma exacerbation Other PMH: HTN Chronic back pain CKD Janeth was admitted secondary to dyspnea and wheezing. She reports history of asthma, but has not used inhalers in years. She denied chest pain or palpations. No edema. She was treated with SOlumedrol x 2 doses and Albuterol inhalers. She improved overnight. She was monitored one more day to insure she was doing well. Today she continues to do well. She was started on Advair diskus along with albuterol inhaler as a rescue inhaler. She has asthma education with Respiratory care. Leukocytosis noted today, likely from steroid administration. No fevers or signs of infection. She will be discharged home today. She is alert and oriented. Pain to legs and back, but improved when home Oxycodone was ordered. She is to return to ED or clinic if concerns should arise. She has follow up with PCP in 1 week. - General Info Date of Service: 02/18/19 Admission Dx/Problem (Free Text: Admission Diagnosis/Problem Admission Diagnosis/Problem Dyspnea Subjective Update: Up in room, ambulating. getting ready for the day. Denies SOB or chest pain. Reports legs hurt, but feel better with Oxycodone. Functional Status: Reports: Pain Controlled, Tolerating Diet, Ambulating, Urinating - Review of Systems General: Reports: No Symptoms. Denies: Fever, Weakness, Fatigue Cardiovascular: Reports: No Symptoms. Denies: Chest Pain Gastrointestinal: Reports: No Symptoms. Denies: Abdominal Pain, Nausea, Vomiting Genitourinary: Reports: No Symptoms Musculoskeletal: Reports: Back Pain (chronic) Skin: Reports: No Symptoms Neurological: Reports: No Symptoms Psychiatric: Reports: No Symptoms - Patient Data Vitals - Most Recent: Last Vital Signs Temp 97.4 F 02/18/19 07:00 Pulse 86 02/18/19 08:04 Resp 18 02/18/19 07:00 BP 123/81 02/18/19 08:04 Pulse Ox 94 L 02/18/19 07:00 Weight - Most Recent: 69.581 kg I&O - Last 24 hours: Intake & Output 02/17/19 02/18/19 02/18/19 22:59 06:59 14:59 Intake Total 1160 840 Output Total 1700 2600 Balance -540 -1760 Lab Results - Last 24 hrs: Laboratory Results - last 24 hr 02/18/19 02/18/19 Range/Units 06:33 06:33 WBC 29.31 H (4.0-11.0) K/uL RBC 4.19 L (4.30-5.90) M/uL Hgb 12.2 (12.0-16.0) g/dL Hct 35.7 L (36.0-46.0) % MCV 85.2 (80.0-98.0) fL MCH 29.1 (27.0-32.0) pg MCHC 34.2 (31.0-37.0) g/dL RDW Std Deviation 44.2 (28.0-62.0) fl RDW Coeff of Rad 14 (11.0-15.0) % Plt Count 297 (150-400) K/uL MPV 9.80 (7.40-12.00) fL Neut % (Auto) 88.4 H (48.0-80.0) % Lymph % (Auto) 5.2 L (16.0-40.0) % Kidder % (Auto) 6.4 (0.0-15.0) % Eos % (Auto) 0.0 (0.0-7.0) % Baso % (Auto) 0.0 (0.0-1.5) % Neut # (Auto) 25.9 H (1.4-5.7) K/uL Lymph # (Auto) 1.5 (0.6-2.4) K/uL Kidder # (Auto) 1.9 H (0.0-0.8) K/uL Eos # (Auto) 0.0 (0.0-0.7) K/uL Baso # (Auto) 0.0 (0.0-0.1) K/uL Nucleated RBC % 0.0 /100WBC Nucleated RBCs # 0 K/uL Sodium 142 (136-145) mmol/L Potassium 3.4 L (3.5-5.1) mmol/L Chloride 103 (98-107) mmol/L Carbon Dioxide 25.9 (21.0-32.0) mmol/L BUN 27 H (7.0-18.0) mg/dL Creatinine 1.4 H (0.6-1.0) mg/dL Est Cr Clr Drug Dosing 23.38 mL/min Estimated GFR (MDRD) 36.0 ml/min Glucose 126 H (74-106) mg/dL Calcium 8.9 (8.5-10.1) mg/dL Med Orders - Current: Current Medications Acetaminophen (Tylenol) 650 mg PO Q6H PRN PRN Reason: Pain Last Admin: 02/18/19 05:15 Dose: 650 mg Albuterol/Ipratropium (Duoneb 3.0-0.5 Mg/3 Ml) 3 ml NEB Q6HRRT [facility] Last Admin: 02/18/19 06:14 Dose: 3 ml Carvedilol (Coreg) 3.125 mg PO BID [facility] Last Admin: 02/18/19 08:04 Dose: 3.125 mg Famotidine (Pepcid) 20 mg PO DAILY [facility] Last Admin: 02/18/19 08:04 Dose: 20 mg Furosemide (Lasix) 20 mg PO DAILY [facility] Last Admin: 02/18/19 08:04 Dose: 20 mg Isosorbide Mononitrate (Imdur) 60 mg PO DAILY [facility] Last Admin: 02/18/19 08:04 Dose: 60 mg Lisinopril (Prinivil) 20 mg PO DAILY [facility] Last Admin: 02/18/19 08:04 Dose: 20 mg Oxycodone Myristate ([Xtampza Er] 27 Mg) 1 each PO Q12H [facility] Last Admin: 02/18/19 01:33 Dose: Not Given Prednisone (Prednisone) 40 mg PO WITHBREAKFAST [facility] Last Admin: 02/18/19 08:04 Dose: 40 mg Pregabalin (Lyrica) 50 mg PO BEDTIME [facility] Last Admin: 02/17/19 20:35 Dose: 50 mg Pregabalin (Lyrica) 25 mg PO BID@08,12 YANNI Pregabalin (Lyrica) 25 mg PO BID@0800,1200 [facility] Last Admin: 02/18/19 08:03 Dose: 25 mg Fluticasone/Salmeterol (Advair Diskus 250-50) 1 puff INH BID [facility] Last Admin: 02/18/19 08:05 Dose: 1 inhalation Sodium Chloride (Saline Flush) 10 ml FLUSH ASDIRECTED PRN PRN Reason: Keep Vein Open Sodium Chloride (Saline Flush) 2.5 ml FLUSH ASDIRECTED PRN PRN Reason: Keep Vein Open Tramadol HCl (Ultram) 50 mg PO Q4HR PRN PRN Reason: Pain (severe 7-10) Last Admin: 02/18/19 06:23 Dose: 50 mg Verapamil HCl (Calan Sr) 180 mg PO DAILY [facility] Last Admin: 02/18/19 08:05 Dose: 180 mg Discontinued Medications Albuterol/Ipratropium (Duoneb 3.0-0.5 Mg/3 Ml) 3 ml NEB ONETIME ONE Stop: 02/16/19 21:51 Last Admin: 02/16/19 21:38 Dose: 3 ml Albuterol/Ipratropium (Duoneb 3.0-0.5 Mg/3 Ml) 3 ml NEB ONETIME ONE Stop: 02/16/19 21:55 Last Admin: 02/16/19 21:55 Dose: 3 ml Albuterol/Ipratropium (Duoneb 3.0-0.5 Mg/3 Ml) 3 ml NEB Q6H [facility] Last Admin: 02/17/19 02:19 Dose: 3 ml Methylprednisolone Sodium Succinate (Solu-Medrol) 62.5 mg IVPUSH ONETIME ONE Stop: 02/16/19 21:56 Last Admin: 02/16/19 22:00 Dose: 62.5 mg Methylprednisolone Sodium Succinate (Solu-Medrol) 125 mg IVPUSH Q12H PRN PRN Reason: Dyspnea Methylprednisolone Sodium Succinate (Solu-Medrol) 125 mg IVPUSH Q12H [facility] Last Admin: 02/17/19 08:46 Dose: 125 mg Oxycodone HCl (Oxycodone) 5 mg PO ONETIME ONE Stop: 02/18/19 09:12 Last Admin: 02/18/19 09:22 Dose: 5 mg Pregabalin (Lyrica) 25 mg PO BID@0800,1200 [facility] - Exam General: Reports: Alert, Oriented, Cooperative, No Acute Distress Lungs: Reports: Clear to Auscultation, Normal Respiratory Effort Cardiovascular: Reports: Regular Rate, Regular Rhythm GI/Abdominal Exam: Normal Bowel Sounds, Soft, Non-Tender Back Exam: Reports: Normal Inspection, Full Range of Motion Extremities: Normal Inspection, Normal Range of Motion, Non-Tender, No Pedal Edema Neurological: Reports: No New Focal Deficit Psy/Mental Status: Reports: Alert, Normal Affect, Normal Mood
[2019-02-18] MEDS ORDERED: Pregabalin 25 MG Cap PO SCH ×2 (14:29→14:30)
== END 2019-02-18 12:15 | disposition home or self-care (01) ==
LOC: MW.ED 21:38 → MW.MS 22:59
PROVIDERS: ADMIT Internal Medicine; ATTEND Internal Medicine
DX: J45.901 Unspecified asthma with (acute) exacerbation (principal); G57.93 Unspecified mononeuropathy of bilateral lower limbs; R73.09 Other abnormal glucose; M54.9 Dorsalgia, unspecified; G89.29 Other chronic pain; R73.03 Prediabetes; I12.9 Hypertensive chronic kidney disease with stage 1 through stage 4 chronic kidney disease, or unspecified chronic kidney disease; N18.9 Chronic kidney disease, unspecified; K21.9 Gastro-esophageal reflux disease without esophagitis; E78.00 Pure hypercholesterolemia, unspecified; Z79.899 Other long term (current) drug therapy; Z79.2 Long term (current) use of antibiotics; Z79.891 Long term (current) use of opiate analgesic
CPT/HCPCS: 36415; 71045; 80048; 80053; 81001; 83880; 84484; 85025; 85610; 93005; 94640; 94664; 96374; 96376; 99285; A9270; G0378; J2930; 99284; J7620-GY

== ENCOUNTER 2019-04-09 15:16 | Emergency (ER) | payer MEDICARE, OTHER ==
[2019-04-09] MEDS ORDERED: Sodium Chloride 0.9% 10 ML Syringe FLUSH PRN (15:24)
[2019-04-09] MEDS ORDERED: Sodium Chloride 0.9% 2.5 ML Syringe FLUSH PRN (15:24)
--- NOTE | 2019-04-09 15:31 | EDM.PDOC ---
ED HPI GENERAL MEDICAL PROBLEM - General Chief Complaint: Trauma Time Seen by Provider: 04/09/19 15:24 - History of Present Illness INITIAL COMMENTS - FREE TEXT/NARRATIVE: HISTORY AND PHYSICAL: History of present illness: Patient is an 84-year-old female with a history of hypertension asthma chronic kidney disease who takes a baby aspirin daily and presents after falling while trying to going into a store to go shopping. The patient says that she tripped and fell forward and impacted her left shoulder and is not sure if she was on an outstretched arm. She says she did not hit her head or neck and she did not pass out or black out and has no head neck or back pain. Patient denies any pelvis pain no lower extremity complaints and no chest pain shortness of breath abdominal pain nausea vomiting or diarrhea. The patient did not her face and has no facial injuries. She does have an old bruise at her right temporal scalp area and for head and she says that she had a fall about 2 days ago which is corroborated by the son. It once again was a simple fall and they did not come in to seek treatment and she has been doing well without a headache or other sequela of the fall. According to the son she has been more clumsy and falling more frequently. The patient denies any numbness or weakness in her extremities and says that earlier today she was having a normal day without any systemic complaints such as upper respiratory symptoms nausea vomiting abdominal pain and she ate normally. 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 Past medical history: As per history of present illness and as reviewed below otherwise noncontributory. Surgical history: As per history of present illness and as reviewed below otherwise noncontributory. Social history: No reported history of drug or alcohol abuse. Family history: As per history of present illness and as reviewed below otherwise noncontributory. Physical exam: General: Well-developed well-nourished thin female who is nontoxic and vital signs are noted by me. She speaks clearly and easily in the ED without distress HEENT: Atraumatic with out any new injuries but there is a resolving ecchymosis at the right forehead/temporal area without any tenderness defects or deformities, normocephalic, pupils reactive, negative for conjunctival pallor or scleral icterus, mucous membranes moist, throat clear, neck supple, nontender , trachea midline. Her are no midline step-offs in his defects of the cervical spine and there is no fascial defects or deformities Lungs: Clear to auscultation, breath sounds equal bilaterally, chest nontender. Heart: S1S2, regular, negative for clicks, rubs, or JVD. Abdomen: Soft, nondistended, nontender. Negative for masses or hepatosplenomegaly. Negative for costovertebral tenderness. Pelvis: Stable nontender. No Lateral hip tenderness Genitourinary: Deferred. Rectal: Deferred. Extremities: Atraumatic and full range of motion of all extremities with the exception of left shoulder where there is soft tissue swelling of the anterior aspect of the shoulder proximal humerus with tenderness on palpation and decreased range of motion due to discomfort. The distal humerus elbow forearm wrist and hand are without tenderness defects or deformities and there is some mild tenderness at the left scapula without soft tissue injury., negative for cords or calf pain. Neurovascular unremarkable. Knees have findings in the bony architecture consistent with her history of arthritis Neuro: Awake, alert, oriented. Cranial nerves II through XII unremarkable. Cerebellum unremarkable. Motor and sensory unremarkable throughout. Exam nonfocal. Midline step-offs in his defects of the thoracic or lumbar spine no posterior rib or posterior pelvis injury and no soft tissue injuries are appreciated Diagnostics: EKG CBC CMP troponin INR TSH UA with reflex CT scan of the head chest x-ray pelvis x-ray and left shoulder x-ray and urine culture Therapeutics: IV O2 monitor low-dose Toradol, sling Macrobid Due to the patient taking aspirin daily this case was called as a trauma alert and I will involve Dr. Neal as needed pending the above testing results 1653: History was discussed with Dr. Box who agrees that a sling for the humeral neck fracture and follow-up in the clinic is appropriate. I will relay this information to the patient and son at bedside All testing results were discussed with the patient and family at bedside and I will give her a dose of Macrobid here and a prescription for home. The patient has prescription pain medications at home she can use and have advised use of the sling and ice. We'll place her name on it and follow-up for Dr. Box and she says she can follow-up for her medical issues such as the TI with Dr. Chavez at [facility] Impression: Fall with history of recent fall, stable, left nondisplaced surgical neck and greater tuberosity fracture, UTI Definitive disposition and diagnosis as appropriate pending reevaluation and review of above. left arm Pain Score (Numeric/FACES): 4 - Related Data Allergies Allergy/AdvReac Type Severity Reaction Status Date / Time No Known Allergies Allergy Verified 04/09/19 15:23 Home Meds: Home Meds Verapamil HCl [Verapamil ER] 180 mg PO DAILY 05/10/14 [History] traMADol HCl [Tramadol HCl] 50 - 100 mg PO Q4HR PRN 05/10/14 [History] Isosorbide Mononitrate [Imdur] 60 mg PO DAILY #30 tab.er 02/01/16 [Rx] Lisinopril 20 mg PO DAILY 02/01/16 [History] Carvedilol 3.125 mg PO BID 11/04/16 [History] Furosemide [Lasix] 20 mg PO DAILY 11/04/16 [History] [place]-3 Fatty Acids [Fish Oil] 1,000 mg PO DAILY 11/04/16 [History] Famotidine 20 mg PO DAILY 03/15/18 [History] Metaxalone [Metaxall] 800 mg PO Q6H PRN 03/15/18 [History] Cephalexin [Keflex] 500 mg PO BID 02/16/19 [History] Oxycodone Myristate [Xtampza ER] 27 mg PO Q12H 02/17/19 [History] Pregabalin 25 mg PO BID@08,12 02/17/19 [History] Pregabalin [Lyrica] 50 mg PO BEDTIME 02/17/19 [History] Albuterol Sulfate [Albuterol Sulfate Hfa] 8.5 gm IH Q4H PRN #1 hfa.aer.ad [Rx] Fluticasone/Salmeterol [Advair 250-50] 1 puff INH BID #1 diskus 02/18/19 [Rx] Past Medical History - Past Health History Medical/Surgical History: Denies Medical/Surgical History HEENT History: Reports: Cataract, Impaired Vision Cardiovascular History: Reports: High Cholesterol, Hypertension. Denies: Afib, Blood Clots/VTE/DVT, Heart Failure, Stents Other Cardiovascular History: on lasix for fluid retension Respiratory History: Reports: Asthma, Bronchitis, Recurrent, TB Gastrointestinal History: Reports: Cholelithiasis, GERD Genitourinary History: Reports: Chronic Renal Insuffiency Other Genitourinary History: "kidney problems" [employer] History: Reports: Other [employer] History: Hysterectomy Musculoskeletal History: Reports: Fracture, Other (See Below) Other Musculoskeletal History: neck and lumbar fracture, right broken wrist Neurological History: Reports: Headaches, Chronic. Denies: CVA, TIA Psychiatric History: Reports: None Endocrine/Metabolic History: Reports: Other (See Below) Other Endocrine/Metabolic History: borderline diabetes, thyroidectomy Hematologic History: Reports: Blood Transfusion(s) Other Hematologic History: blood transfusion x 1 Oncologic (Cancer) History: Reports: None - Infectious Disease History Infectious Disease History: Reports: Chicken Pox - Past Surgical History HEENT Surgical History: Reports: Cataract Surgery GI Surgical History: Reports: Cholecystectomy Endocrine Surgical History: Reports: Thyroidectomy Neurological Surgical History: Reports: Lumbar Spine Musculoskeletal Surgical History: Reports: Other (See Below) Dermatological Surgical History: Reports: None Social & Family History - Family History Family Medical History: Noncontributory HEENT: Reports: Impaired Vision Musculoskeletal: Reports: Arthritis Oncologic: Reports: Other (See Below) Other Oncologic Family History: stomach - Caffeine Use Caffeine Use: Reports: Coffee, Soda, Tea Caffeine Use Comment: 1cup/day - Living Situation & Occupation Living situation: Reports: with Family Occupation: Retired Review of Systems - Review of Systems Review Of Systems: Comprehensive ROS is negative, except as noted in HPI. ED EXAM, GENERAL - Physical Exam Exam: See Below (See dictation) Course - Vital Signs Last Recorded V/S: Last Vital Signs Temp 36.6 C 04/09/19 15:24 Pulse 84 04/09/19 15:24 Resp 16 04/09/19 15:24 BP 145/94 H 04/09/19 15:24 Pulse Ox 94 L 04/09/19 15:24 - Orders/Labs/Meds Orders: Active Orders 24 hr Category Date Time Status Patient Status [ADT] Stat ADT 04/09/19 16:25 Active Cardiac Monitoring [RC] . DIRECTED Care 04/09/19 15:25 Active EKG Documentation Completion [RC] STAT Care 04/09/19 15:25 Active Oxygen Therapy, ED [RC] ASDIRECTED Care 04/09/19 15:25 Active Pulse Oximetry [RC] ASDIRECTED Care 04/09/19 15:25 Active CULTURE URINE [RM] Stat Lab 04/09/19 16:40 Received Nitrofurantoin Robeson/Macrocryst [Macrobid] Med 04/09/19 17:11 Once 100 mg PO ONETIME ONE Sodium Chloride 0.9% [Saline Flush] Med 04/09/19 15:24 Active 10 ml FLUSH ASDIRECTED PRN Sodium Chloride 0.9% [Saline Flush] Med 04/09/19 15:24 Active 2.5 ml FLUSH ASDIRECTED PRN DME for Discharge [COMM] Stat Oth 04/09/19 16:54 Ordered Saline Lock Insert [OM.PC] Stat Oth 04/09/19 15:25 Ordered Medication Orders Nitrofurantoin Macrocrystals (Macrobid) 100 mg PO ONETIME ONE Stop: 04/09/19 17:12 Sodium Chloride (Saline Flush) 10 ml FLUSH ASDIRECTED PRN PRN Reason: Keep Vein Open Sodium Chloride (Saline Flush) 2.5 ml FLUSH ASDIRECTED PRN PRN Reason: Keep Vein Open Labs: Laboratory Tests 04/09/19 04/09/19 04/09/19 Range/Units 15:35 15:35 15:35 WBC 7.64 (4.0-11.0) K/uL RBC 4.40 (4.30-5.90) M/uL Hgb 12.7 (12.0-16.0) g/dL Hct 38.1 (36.0-46.0) % MCV 86.6 (80.0-98.0) fL MCH 28.9 (27.0-32.0) pg MCHC 33.3 (31.0-37.0) g/dL RDW Std Deviation 44.9 (28.0-62.0) fl RDW Coeff of Rad 14 (11.0-15.0) % Plt Count 277 (150-400) K/uL MPV 10.00 (7.40-12.00) fL Neut % (Auto) 50.4 (48.0-80.0) % Lymph % (Auto) 35.7 (16.0-40.0) % Robeson % (Auto) 10.3 (0.0-15.0) % Eos % (Auto) 2.6 (0.0-7.0) % Baso % (Auto) 1.0 (0.0-1.5) % Neut # (Auto) 3.8 (1.4-5.7) K/uL Lymph # (Auto) 2.7 H (0.6-2.4) K/uL Robeson # (Auto) 0.8 (0.0-0.8) K/uL Eos # (Auto) 0.2 (0.0-0.7) K/uL Baso # (Auto) 0.1 (0.0-0.1) K/uL Nucleated RBC % 0.0 /100WBC Nucleated RBCs # 0 K/uL INR 1.03 Sodium 138 (136-145) mmol/L Potassium 4.1 (3.5-5.1) mmol/L Chloride 100 (98-107) mmol/L Carbon Dioxide 27.6 (21.0-32.0) mmol/L BUN 26 H (7.0-18.0) mg/dL Creatinine 1.8 H (0.6-1.0) mg/dL Est Cr Clr Drug Dosing 19.06 mL/min Estimated GFR (MDRD) 26.9 ml/min Glucose 98 (74-106) mg/dL Calcium 8.5 (8.5-10.1) mg/dL Total Bilirubin 0.3 (0.2-1.0) mg/dL AST 16 (15-37) IU/L ALT 16 (14-63) IU/L Alkaline Phosphatase 78 (46-116) U/L Troponin I < 0.050 (0.000-0.056) ng/mL Total Protein 8.0 (6.4-8.2) g/dL Albumin 3.6 (3.4-5.0) g/dL Globulin 4.4 H (2.6-4.0) g/dL Albumin/Globulin Ratio 0.8 L (0.9-1.6) TSH 3rd Generation 3.47 (0.36-3.74) uIU/mL Urine Color Urine Appearance Urine pH (5.0-8.0) Ur Specific [place] (1.001-1.035) Urine Protein (NEGATIVE) mg/dL Urine Glucose (UA) (NEGATIVE) mg/dL Urine Ketones (NEGATIVE) mg/dL Urine Occult Blood (NEGATIVE) Urine Nitrite (NEGATIVE) Urine Bilirubin (NEGATIVE) Urine Urobilinogen (<2.0) EU/dL Ur Leukocyte Esterase (NEGATIVE) Urine RBC (0-2/HPF) Urine WBC (0-5/HPF) Ur Epithelial Cells (NONE-FEW) Urine Bacteria (NEGATIVE) 04/09/19 Range/Units 16:40 WBC (4.0-11.0) K/uL RBC (4.30-5.90) M/uL Hgb (12.0-16.0) g/dL Hct (36.0-46.0) % MCV (80.0-98.0) fL MCH (27.0-32.0) pg MCHC (31.0-37.0) g/dL RDW Std Deviation (28.0-62.0) fl RDW Coeff of Rad (11.0-15.0) % Plt Count (150-400) K/uL MPV (7.40-12.00) fL Neut % (Auto) (48.0-80.0) % Lymph % (Auto) (16.0-40.0) % Robeson % (Auto) (0.0-15.0) % Eos % (Auto) (0.0-7.0) % Baso % (Auto) (0.0-1.5) % Neut # (Auto) (1.4-5.7) K/uL Lymph # (Auto) (0.6-2.4) K/uL Robeson # (Auto) (0.0-0.8) K/uL Eos # (Auto) (0.0-0.7) K/uL Baso # (Auto) (0.0-0.1) K/uL Nucleated RBC % /100WBC Nucleated RBCs # K/uL INR Sodium (136-145) mmol/L Potassium (3.5-5.1) mmol/L Chloride (98-107) mmol/L Carbon Dioxide (21.0-32.0) mmol/L BUN (7.0-18.0) mg/dL Creatinine (0.6-1.0) mg/dL Est Cr Clr Drug Dosing mL/min Estimated GFR (MDRD) ml/min Glucose (74-106) mg/dL Calcium (8.5-10.1) mg/dL Total Bilirubin (0.2-1.0) mg/dL AST (15-37) IU/L ALT (14-63) IU/L Alkaline Phosphatase (46-116) U/L Troponin I (0.000-0.056) ng/mL Total Protein (6.4-8.2) g/dL Albumin (3.4-5.0) g/dL Globulin (2.6-4.0) g/dL Albumin/Globulin Ratio (0.9-1.6) TSH 3rd Generation (0.36-3.74) uIU/mL Urine Color YELLOW Urine Appearance SLT CLOUDY Urine pH 6.0 (5.0-8.0) Ur Specific [place] 1.010 (1.001-1.035) Urine Protein TRACE H (NEGATIVE) mg/dL Urine Glucose (UA) NEGATIVE (NEGATIVE) mg/dL Urine Ketones NEGATIVE (NEGATIVE) mg/dL Urine Occult Blood SMALL H (NEGATIVE) Urine Nitrite NEGATIVE (NEGATIVE) Urine Bilirubin NEGATIVE (NEGATIVE) Urine Urobilinogen 0.2 (<2.0) EU/dL Ur Leukocyte Esterase LARGE H (NEGATIVE) Urine RBC 1-2 (0-2/HPF) Urine WBC 50-60 (0-5/HPF) Ur Epithelial Cells FEW (NONE-FEW) Urine Bacteria 1+ H (NEGATIVE) Meds: Medications Generic Name Dose Route Start Last Admin Trade Name Freq PRN Reason Stop Dose Admin Nitrofurantoin Macrocrystals 100 mg 04/09/19 17:11 Macrobid PO 04/09/19 17:12 ONETIME ONE Sodium Chloride 10 ml 04/09/19 15:24 Saline Flush FLUSH ASDIRECTED PRN Keep Vein Open Sodium Chloride 2.5 ml 04/09/19 15:24 Saline Flush FLUSH ASDIRECTED PRN Keep Vein Open Discontinued Medications Generic Name Dose Route Start Last Admin Trade Name Freq PRN Reason Stop Dose Admin Ketorolac Tromethamine 15 mg 04/09/19 16:54 04/09/19 17:07 Toradol IVPUSH 04/09/19 16:55 15 mg ONETIME ONE Administration Departure - Departure Time of Disposition: 17:12 Disposition: Home, Self-Care 01 Condition: Good Clinical Impression: Humeral surgical neck fracture Qualifiers: Encounter type: initial encounter Fracture type: closed Fracture morphology: unspecified fracture morphology Fracture alignment: nondisplaced Laterality: left Qualified Code(s): S42.215A - Unspecified nondisplaced fracture of surgical neck of left humerus, initial encounter for closed fracture Fall Qualifiers: Encounter type: initial encounter Qualified Code(s): W19.XXXA - Unspecified fall, initial encounter UTI (urinary tract infection) Qualifiers: Urinary tract infection type: site unspecified Hematuria presence: without hematuria Qualified Code(s): N39.0 - Urinary tract infection, site not specified - Discharge Information Referrals: Rupal Chavez MD [Primary Care Provider] - Forms: ED Department Discharge Additional Instructions: The following information is given to patients seen in the emergency department who are being discharged to home. This information is to outline your options for follow-up care. We provide all patients seen in our emergency department with a follow-up referral. The need for follow-up, as well as the timing and circumstances, are variable depending upon the specifics of your emergency department visit. If you don't have a primary care physician on staff, we will provide you with a referral. We always advise you to contact your personal physician following an emergency department visit to inform them of the circumstance of the visit and for follow-up with them and/or the need for any referrals to a consulting specialist. The emergency department will also refer you to a specialist when appropriate. This referral assures that you have the opportunity for followup care with a specialist. All of these measure are taken in an effort to provide you with optimal care, which includes your followup. Under all circumstances we always encourage you to contact your private physician who remains a resource for coordinating your care. When calling for followup care, please make the office aware that this follow-up is from your recent emergency room visit. If for any reason you are refused follow-up, please contact the [facility] emergency department at and ask to speak to the emergency department charge nurse. [facility] - [facility] Professional Building [address] [place] [address], [address] [place] [address] Ice to shoulder and wear sling at all times. Call make a follow-up appointment with our orthopedics clinic for follow-up care as we discussed. Use the pain medication have at home or [id number] meds. Please take antibiotics as prescribed for the UTI. Follow-up with your provider at [facility] for further care and evaluation or one of hours. Return to ER as needed and as discussed - My Orders Last 24 Hours: My Active Orders 04/09/19 15:24 Sodium Chloride 0.9% [Saline Flush] 10 ml FLUSH ASDIRECTED PRN Sodium Chloride 0.9% [Saline Flush] 2.5 ml FLUSH ASDIRECTED PRN 04/09/19 15:25 Cardiac Monitoring [RC] . DIRECTED EKG Documentation Completion [RC] STAT Oxygen Therapy, ED [RC] ASDIRECTED Pulse Oximetry [RC] ASDIRECTED Saline Lock Insert [OM.PC] Stat 04/09/19 16:25 Patient Status [ADT] Stat 04/09/19 16:40 CULTURE URINE [RM] Stat 04/09/19 16:54 DME for Discharge [COMM] Stat 04/09/19 17:11 Nitrofurantoin Robeson/Macrocryst [Macrobid] 100 mg PO ONETIME ONE - Assessment/Plan Last 24 Hours: My Active Orders 04/09/19 15:24 Sodium Chloride 0.9% [Saline Flush] 10 ml FLUSH ASDIRECTED PRN Sodium Chloride 0.9% [Saline Flush] 2.5 ml FLUSH ASDIRECTED PRN 04/09/19 15:25 Cardiac Monitoring [RC] . DIRECTED EKG Documentation Completion [RC] STAT Oxygen Therapy, ED [RC] ASDIRECTED Pulse Oximetry [RC] ASDIRECTED Saline Lock Insert [OM.PC] Stat 04/09/19 16:25 Patient Status [ADT] Stat 04/09/19 16:40 CULTURE URINE [RM] Stat 04/09/19 16:54 DME for Discharge [COMM] Stat 04/09/19 17:11 Nitrofurantoin Robeson/Macrocryst [Macrobid] 100 mg PO ONETIME ONE
--- NOTE | 2019-04-09 15:55 | CR ---
EXAM DATE: 04/09/19 PATIENT'S AGE: 84 Chest: Portable view of the chest was obtained. Comparison: Prior chest x-ray of 02/16/19. Heart size at the upper limits of normal. 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 Surgical clips are seen within the left neck. Lungs are clear. Slight scarring is noted within the left lung. No acute parenchymal change is seen. Bony structures are grossly intact. Impression: 1. Findings as noted above. 2. Nothing acute is appreciated. Diagnostic code #2 Report Signed by Proxy. POORNIMA
--- NOTE | 2019-04-09 15:57 | CR ---
EXAM DATE: 04/09/19 PATIENT'S AGE: 84 Pelvis: AP view of the pelvis was obtained. Comparison: No prior pelvis exam. Sacroiliac joints appear normal. Scoliosis is noted within the spine. Joint spaces within both hips are maintained. No fracture or other bony abnormality is appreciated. Impression: 1. Scoliosis within the spine. 2. Nothing acute is seen on AP pelvis study. Diagnostic code #2 Report Signed by Proxy. POORNIMA
--- NOTE | 2019-04-09 16:03 | CR ---
EXAM DATE: 04/09/19 PATIENT'S AGE: 84 Left shoulder: Two views of the left shoulder were obtained. Slight deformity is seen within the surgical neck and base of the greater tuberosity. Findings are suspicious for nondisplaced fractures. Degenerative change is noted within the acromioclavicular joint with joint space narrowing, inferior spurring and dystrophic calcification is seen off the superior joint. No additional abnormality is appreciated. Impression: 1. Findings suspicious for nondisplaced surgical neck fracture and fracture within the base of the greater tuberosity. 2. Degenerative change and osteopenia. Diagnostic code #3 Report Signed by Proxy. [facility] MEDICAL CENTERJessica
--- NOTE | 2019-04-09 16:08 | CT ---
EXAM DATE: 04/09/19 PATIENT'S AGE: [address] Technique: Multiple axial sections through the brain were obtained. Intravenous contrast was not utilized. Comparison: No prior intracranial imaging is available. Findings: Ventricles along with basal cisterns and sulci over the convexities are mildly prominent. 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 No other abnormal parenchymal densities are seen. No evidence intracranial hemorrhage. No midline shift or mass effect is seen. Bone window settings were reviewed which show no acute calvarial abnormality. Visualized paranasal sinuses show nothing acute. Minimal areas of mucosal thickening are noted on the left side which are felt to be incidental. Mastoid sinuses are clear. Impression: 1. Nothing acute is appreciated on noncontrast head CT exam. Diagnostic code #2 Report Signed by Proxy. POORNIMA
[2019-04-09 16:45] LABS: BLOOD UREA NITROGEN,BUN 26 mg/dL (7.0-18.0); CARBON DIOXIDE,CO2 27.6 mmol/L (21.0-32.0); CHLORIDE,CL 100 mmol/L (98-107); GLUCOSE RANDOM 98 mg/dL (74-106); POTASSIUM,K 4.1 mmol/L (3.5-5.1); SODIUM,NA 138 mmol/L (136-145)
[2019-04-09] MEDS ORDERED: Ketorolac 30 MG/ML SDV IVPUSH ONE (16:54)
[2019-04-09] MEDS ORDERED: Nitrofurantoin Monohydrate/Macrocrystalline 100 MG Cap PO ONE (17:11)
[2019-04-09 17:57] VITALS: BP 162/94; PULSE 75
== END 2019-04-09 17:40 | disposition home or self-care (01) ==
LOC: MW.ED 15:16
DX: S42.215A Unspecified nondisplaced fracture of surgical neck of left humerus, initial encounter for closed fracture (principal); N39.0 Urinary tract infection, site not specified; S00.83XA Contusion of other part of head, initial encounter; I12.9 Hypertensive chronic kidney disease with stage 1 through stage 4 chronic kidney disease, or unspecified chronic kidney disease; N18.9 Chronic kidney disease, unspecified; J45.909 Unspecified asthma, uncomplicated; E78.00 Pure hypercholesterolemia, unspecified; K21.9 Gastro-esophageal reflux disease without esophagitis; Z79.899 Other long term (current) drug therapy; W19.XXXA Unspecified fall, initial encounter
CPT/HCPCS: 70450; 71045; 72170; 73030; 80053; 81001; 84443; 84484; 85025; 85610; 87086; 87088; 87186; 93005; 96374; 99284; A9270; J1885; 99285

== ENCOUNTER 2020-02-16 07:31 | Emergency (ER) | payer MEDICARE, OTHER ==
[2020-02-16] MEDS ORDERED: Sodium Chloride 0.9% 10 ML Syringe FLUSH PRN (08:20)
[2020-02-16] MEDS ORDERED: Sodium Chloride 0.9% 2.5 ML Syringe FLUSH PRN (08:20)
[2020-02-16] MEDS ORDERED: Ondansetron 4 MG/2 ML SDV IVPUSH ONE (08:22)
[2020-02-16] MEDS ORDERED: Sodium Chloride 0.9% 1,000 ML IV ONE (08:22)
--- NOTE | 2020-02-16 08:33 | EDM.PDOC ---
ED HPI GENERAL MEDICAL PROBLEM - General Chief Complaint: Gastrointestinal Problem Stated Complaint: DIARRHEA Time Seen by Provider: 02/16/20 08:12 - History of Present Illness INITIAL COMMENTS - FREE TEXT/NARRATIVE: History of present illness: Patient presents with nausea vomiting and diarrhea that began this morning she felt really weak and called 911 but then decided not to go with him but she felt weak again so she decided to come to the hospital. She said she had belly pain earlier is gone now she denies dysuria she has not had fever chills cough congestion runny nose sore throat. She is also complaining of right knee pain that is from her chronic gout it has been flaring up she denies any injuries that is her gout pain it has been worse the last several days. She denies any chest pain or shortness of breath she has not had antibiotics recently she has not had any foreign travel she has not had any suspicious foods no one else is sick at home Review of systems: As per history of present illness and below otherwise all systems reviewed and negative. Past medical history: As per history of present illness and as reviewed below otherwise noncontributory. Surgical history: As per history of present illness and as reviewed below otherwise noncontributory. Social history: No reported history of drug or alcohol abuse. Family history: As per history of present illness and as reviewed below otherwise noncontributory. Physical exam: HEENT: Atraumatic, normocephalic, pupils reactive, negative for conjunctival pallor or scleral icterus, mucous membranes moist, throat clear, neck supple, nontender, trachea midline. Lungs: Clear to auscultation, breath sounds equal bilaterally, chest nontender. Heart: S1S2, regular, negative for clicks, rubs, or JVD. Abdomen: Soft, nondistended, nontender. Negative for masses or hepatosplenomegaly. Negative for costovertebral tenderness. Pelvis: Stable nontender. Genitourinary: Deferred. Rectal: Deferred. Extremities: Atraumatic, negative for cords or calf pain. Neurovascular unremarkable. Neuro: Awake, alert, oriented. Cranial nerves II through XII unremarkable. Cerebellum unremarkable. Motor and sensory unremarkable throughout. Exam nonfocal. Diagnostics: [] Therapeutics: [] Impression: Nausea vomiting diarrhea and also a gout flare in the right knee [] Plan: We will check some labs give her some fluids and reassess after some nausea medicine. [] Definitive disposition and diagnosis as appropriate pending reevaluation and review of above. - Related Data Allergies Allergy/AdvReac Type Severity Reaction Status Date / Time ciprofloxacin [From Cipro] Allergy Joint Pain Verified 02/16/20 07:42 clonidine Allergy Tachycardia Verified 02/16/20 07:42 codeine Allergy Other Verified 02/16/20 07:42 hydrocodone Allergy Itching Verified 02/16/20 07:42 levofloxacin [From Levaquin] Allergy Joint Pain Verified 02/16/20 07:42 nitrofurantoin Allergy Renal Verified 02/16/20 07:42 [From Macrodantin] Insufficiency Penicillins Allergy Rash Verified 02/16/20 07:42 Home Meds: Home Meds Verapamil HCl [Verapamil ER] 180 mg PO DAILY 05/10/14 [History] Isosorbide Mononitrate [Imdur] 60 mg PO DAILY #30 tab.er 02/01/16 [Rx] Lisinopril 20 mg PO DAILY 02/01/16 [History] Industry-3 Fatty Acids [Fish Oil] 1,000 mg PO DAILY 11/04/16 [History] carvediloL [Carvedilol] 3.125 mg PO BID 11/04/16 [History] Pregabalin 25 mg PO BID@,12 02/17/19 [History] Albuterol Sulfate [Albuterol Sulfate Hfa] 8.5 gm IH Q4H PRN #1 hfa.aer.ad 02/18/19 [Rx] Allopurinol [Zyloprim] 100 mg PO DAILY 02/16/20 [History] Hanjd-R-Objfnlnzqmmvi [Beano] 150 unit PO ASDIRECTED 02/16/20 [History] Aspirin [Aspirin EC] 81 mg PO DAILY 02/16/20 [History] Cholecalciferol (Vitamin D3) [Vitamin D3] 1,000 unit PO DAILY 02/16/20 [History] Docusate Sodium [DOK] 100 mg PO DAILY 02/16/20 [History] Morphine [MS Contin] 15 mg PO Q12HR PRN 02/16/20 [History] Ondansetron [Zofran ODT] 4 mg PO Q6H PRN 5 Days #12 tab.dis 02/16/20 [Rx] oxyCODONE HCl/Acetaminophen [Endocet 5-325 Tablet] 1 each PO Q6HR PRN 02/16/20 [History] Past Medical History - Past Health History Medical/Surgical History: Denies Medical/Surgical History HEENT History: Reports: Cataract, Impaired Vision Cardiovascular History: Reports: High Cholesterol, Hypertension Other Cardiovascular History: on lasix for fluid retension Respiratory History: Reports: Asthma, Bronchitis, Recurrent, TB Gastrointestinal History: Reports: Cholelithiasis, GERD Genitourinary History: Reports: Chronic Renal Insuffiency Other Genitourinary History: "kidney problems" [employer] History: Reports: Other [employer] History: Hysterectomy Musculoskeletal History: Reports: Fracture, Other (See Below) Other Musculoskeletal History: neck and lumbar fracture, right broken wrist Neurological History: Reports: Headaches, Chronic Psychiatric History: Reports: None Endocrine/Metabolic History: Reports: Other (See Below) Other Endocrine/Metabolic History: borderline diabetes, thyroidectomy Hematologic History: Reports: Blood Transfusion(s) Other Hematologic History: blood transfusion x 1 Immunologic History: Reports: None Oncologic (Cancer) History: Reports: None Dermatologic History: Reports: None - Infectious Disease History Infectious Disease History: Reports: None - Past Surgical History Head Surgeries/Procedures: Reports: None HEENT Surgical History: Reports: Cataract Surgery GI Surgical History: Reports: Cholecystectomy Endocrine Surgical History: Reports: Thyroidectomy Neurological Surgical History: Reports: Lumbar Spine Musculoskeletal Surgical History: Reports: Other (See Below) Dermatological Surgical History: Reports: None Social & Family History - Family History Family Medical History: Noncontributory HEENT: Reports: Impaired Vision Musculoskeletal: Reports: Arthritis Oncologic: Reports: Other (See Below) Other Oncologic Family History: stomach - Tobacco Use Smoking Status *Q: Never Smoker - Caffeine Use Caffeine Use: Reports: Coffee Caffeine Use Comment: 1cup/day - Recreational Drug Use Recreational Drug Use: No - Living Situation & Occupation Living situation: Reports: with Family Occupation: Retired ED ROS GENERAL - Review of Systems Review Of Systems: See Below ED EXAM, GENERAL - Physical Exam Exam: See Below Course - Vital Signs Text/Narrative:: Patient is feeling better after Zofran and fluids her lab studies are fairly unremarkable with the exception of some mild renal insufficiency she was given a liter of saline in the ED and Zofran feels better discharge home with Zofran follow-up with primary care. Last Recorded V/S: Last Vital Signs Temp 35.8 C L 02/16/20 07:54 Pulse 79 02/16/20 09:18 Resp 17 02/16/20 07:54 BP 162/82 H 02/16/20 09:18 Pulse Ox 95 02/16/20 09:18 - Orders/Labs/Meds Orders: Active Orders 24 hr Category Date Time Status CORONAVIRUS COVID-19 PCR PHL Stat Lab 02/16/20 08:47 Received Sodium Chloride 0.9% [Saline Flush] Med 02/16/20 08:20 Active 10 ml FLUSH ASDIRECTED PRN Sodium Chloride 0.9% [Saline Flush] Med 02/16/20 08:20 Active 2.5 ml FLUSH ASDIRECTED PRN Saline Lock Insert [OM.PC] Stat Oth 02/16/20 08:20 Ordered Medication Orders Sodium Chloride (Saline Flush) 10 ml FLUSH ASDIRECTED PRN PRN Reason: Keep Vein Open Last Admin: 02/16/20 08:38 Dose: 10 ml Documented by: AIRAM Sodium Chloride (Saline Flush) 2.5 ml FLUSH ASDIRECTED PRN PRN Reason: Keep Vein Open Last Admin: 02/16/20 08:38 Dose: 2.5 ml Documented by: AIRAM Labs: Laboratory Tests 02/16/20 02/16/20 02/16/20 Range/Units 08:05 08:36 08:36 WBC 8.17 (4.0-11.0) K/uL RBC 4.41 (4.30-5.90) M/uL Hgb 13.0 (12.0-16.0) g/dL Hct 39.2 (36.0-46.0) % MCV 88.9 (80.0-98.0) fL MCH 29.5 (27.0-32.0) pg MCHC 33.2 (31.0-37.0) g/dL RDW Std Deviation 49.2 (28.0-62.0) fl RDW Coeff of Rad 15 (11.0-15.0) % Plt Count 285 (150-400) K/uL MPV 10.40 (7.40-12.00) fL Neut % (Auto) 67.7 (48.0-80.0) % Lymph % (Auto) 22.4 (16.0-40.0) % [place] % (Auto) 8.1 (0.0-15.0) % Eos % (Auto) 1.1 (0.0-7.0) % Baso % (Auto) 0.7 (0.0-1.5) % Neut # (Auto) 5.5 (1.4-5.7) K/uL Lymph # (Auto) 1.8 (0.6-2.4) K/uL [place] # (Auto) 0.7 (0.0-0.8) K/uL Eos # (Auto) 0.1 (0.0-0.7) K/uL Baso # (Auto) 0.1 (0.0-0.1) K/uL Nucleated RBC % 0.0 /100WBC Nucleated RBCs # 0 K/uL Sodium 141 (136-145) mmol/L Potassium 4.1 (3.5-5.1) mmol/L Chloride 106 (98-107) mmol/L Carbon Dioxide 24.3 (21.0-32.0) mmol/L BUN 27 H (7.0-18.0) mg/dL Creatinine 1.5 H (0.6-1.0) mg/dL Est Cr Clr Drug Dosing 20.41 mL/min Estimated GFR (MDRD) 33.2 ml/min Glucose 101 (74-106) mg/dL Calcium 9.1 (8.5-10.1) mg/dL Total Bilirubin 0.4 (0.2-1.0) mg/dL AST 19 (15-37) IU/L ALT 25 (14-63) IU/L Alkaline Phosphatase 94 (46-116) U/L Total Protein 6.9 (6.4-8.2) g/dL Albumin 3.5 (3.4-5.0) g/dL Globulin 3.4 (2.6-4.0) g/dL Albumin/Globulin Ratio 1.0 (0.9-1.6) Lipase 233 (73-393) U/L Urine Color YELLOW Urine Appearance CLEAR Urine pH 6.0 (5.0-8.0) Ur Specific [place] <= 1.005 (1.001-1.035) Urine Protein NEGATIVE (NEGATIVE) mg/dL Urine Glucose (UA) NEGATIVE (NEGATIVE) mg/dL Urine Ketones NEGATIVE (NEGATIVE) mg/dL Urine Occult Blood SMALL H (NEGATIVE) Urine Nitrite NEGATIVE (NEGATIVE) Urine Bilirubin NEGATIVE (NEGATIVE) Urine Urobilinogen 0.2 (<2.0) EU/dL Ur Leukocyte Esterase NEGATIVE (NEGATIVE) Urine RBC 0-3 (0-2/HPF) Urine WBC 0-2 (0-5/HPF) Ur Epithelial Cells FEW (NONE-FEW) Urine Bacteria RARE (NEGATIVE) SARS CoV-2 RNA Rapid KEILA (NEGATIVE) 02/16/20 Range/Units 08:47 WBC (4.0-11.0) K/uL RBC (4.30-5.90) M/uL Hgb (12.0-16.0) g/dL Hct (36.0-46.0) % MCV (80.0-98.0) fL MCH (27.0-32.0) pg MCHC (31.0-37.0) g/dL RDW Std Deviation (28.0-62.0) fl RDW Coeff of Rad (11.0-15.0) % Plt Count (150-400) K/uL MPV (7.40-12.00) fL Neut % (Auto) (48.0-80.0) % Lymph % (Auto) (16.0-40.0) % [place] % (Auto) (0.0-15.0) % Eos % (Auto) (0.0-7.0) % Baso % (Auto) (0.0-1.5) % Neut # (Auto) (1.4-5.7) K/uL Lymph # (Auto) (0.6-2.4) K/uL [place] # (Auto) (0.0-0.8) K/uL Eos # (Auto) (0.0-0.7) K/uL Baso # (Auto) (0.0-0.1) K/uL Nucleated RBC % /100WBC Nucleated RBCs # K/uL Sodium (136-145) mmol/L Potassium (3.5-5.1) mmol/L Chloride (98-107) mmol/L Carbon Dioxide (21.0-32.0) mmol/L BUN (7.0-18.0) mg/dL Creatinine (0.6-1.0) mg/dL Est Cr Clr Drug Dosing mL/min Estimated GFR (MDRD) ml/min Glucose (74-106) mg/dL Calcium (8.5-10.1) mg/dL Total Bilirubin (0.2-1.0) mg/dL AST (15-37) IU/L ALT (14-63) IU/L Alkaline Phosphatase (46-116) U/L Total Protein (6.4-8.2) g/dL Albumin (3.4-5.0) g/dL Globulin (2.6-4.0) g/dL Albumin/Globulin Ratio (0.9-1.6) Lipase (73-393) U/L Urine Color Urine Appearance Urine pH (5.0-8.0) Ur Specific [place] (1.001-1.035) Urine Protein (NEGATIVE) mg/dL Urine Glucose (UA) (NEGATIVE) mg/dL Urine Ketones (NEGATIVE) mg/dL Urine Occult Blood (NEGATIVE) Urine Nitrite (NEGATIVE) Urine Bilirubin (NEGATIVE) Urine Urobilinogen (<2.0) EU/dL Ur Leukocyte Esterase (NEGATIVE) Urine RBC (0-2/HPF) Urine WBC (0-5/HPF) Ur Epithelial Cells (NONE-FEW) Urine Bacteria (NEGATIVE) SARS CoV-2 RNA Rapid KEILA NEGATIVE (NEGATIVE) Meds: Medications Generic Name Dose Route Start Last Admin Trade Name Freq PRN Reason Stop Dose Admin Sodium Chloride 10 ml 02/16/20 08:20 02/16/20 08:38 Saline Flush FLUSH 10 ml ASDIRECTED PRN Administration Keep Vein Open Sodium Chloride 2.5 ml 02/16/20 08:20 02/16/20 08:38 Saline Flush FLUSH 2.5 ml ASDIRECTED PRN Administration Keep Vein Open Discontinued Medications Generic Name Dose Route Start Last Admin Trade Name Freq PRN Reason Stop Dose Admin Sodium Chloride 1,000 mls @ 999 mls/hr 02/16/20 08:22 02/16/20 08:38 Normal Saline IV 02/16/20 09:22 999 mls/hr .Bolus ONE Administration Ondansetron HCl 4 mg 02/16/20 08:22 02/16/20 08:38 Zofran IVPUSH 02/16/20 08:23 4 mg ONETIME ONE Administration Departure - Departure Time of Disposition: 09:39 Disposition: Home, Self-Care 01 Condition: Good Clinical Impression: Vomiting, Diarrhea - Discharge Information *PRESCRIPTION DRUG MONITORING PROGRAM REVIEWED*: Not Applicable *COPY OF PRESCRIPTION DRUG MONITORING REPORT IN PATIENT LADONNA: Not Applicable Prescriptions: Ondansetron [Zofran ODT] 4 mg PO Q6H PRN 5 Days #12 tab.dis PRN Reason: Nausea/Vomiting Instructions: Nausea and Vomiting, Adult, Diarrhea, Adult Referrals: Rupal Chavez MD [Primary Care Provider] - Forms: ED Department Discharge Additional Instructions: The following information is given to patients seen in the emergency department who are being discharged to home. This information is to outline your options for follow-up care. We provide all patients seen in our emergency department with a follow-up referral. The need for follow-up, as well as the timing and circumstances, are variable depending upon the specifics of your emergency department visit. If you don't have a primary care physician on staff, we will provide you with a referral. We always advise you to contact your personal physician following an emergency department visit to inform them of the circumstance of the visit and for follow-up with them and/or the need for any referrals to a consulting specialist. The emergency department will also refer you to a specialist when appropriate. This referral assures that you have the opportunity for follow-up care with a specialist. All of these measure are taken in an effort to provide you with optimal care, which includes your follow-up. Under all circumstances we always encourage you to contact your private physician who remains a resource for coordinating your care. When calling for follow-up care, please make the office aware that this follow-up is from your recent emergency room visit. If for any reason you are refused follow-up, please contact the [facility] Emergency Department at and asked to speak to the emergency department charge nurse. [facility] - Primary [facility] [address] [place] [id number] [address] Sepsis Event Note (ED) - Evaluation Sepsis Screening Result: No Definite Risk - Focused Exam Vital Signs: Vital Signs Temp Pulse Resp BP Pulse Ox 02/16/20 09:18 79 162/82 H 95 02/16/20 08:50 82 162/90 H 94 L 02/16/20 07:58 82 154/90 H 94 L 02/16/20 07:54 35.8 C L 85 17 167/83 H 98 - My Orders Last 24 Hours: My Active Orders 02/16/20 08:20 Sodium Chloride 0.9% [Saline Flush] 10 ml FLUSH ASDIRECTED PRN Sodium Chloride 0.9% [Saline Flush] 2.5 ml FLUSH ASDIRECTED PRN Saline Lock Insert [OM.PC] Stat 02/16/20 08:47 CORONAVIRUS COVID-19 PCR PHL Stat - Assessment/Plan Last 24 Hours: My Active Orders 02/16/20 08:20 Sodium Chloride 0.9% [Saline Flush] 10 ml FLUSH ASDIRECTED PRN Sodium Chloride 0.9% [Saline Flush] 2.5 ml FLUSH ASDIRECTED PRN Saline Lock Insert [OM.PC] Stat 02/16/20 08:47 CORONAVIRUS COVID-19 PCR PHL Stat
[2020-02-16 09:11] LABS: CARBON DIOXIDE,CO2 24.3 mmol/L (21.0-32.0); POTASSIUM,K 4.1 mmol/L (3.5-5.1)
[2020-02-16 12:15] VITALS: BP 135/78; PULSE 88
== END 2020-02-16 10:08 | disposition home or self-care (01) ==
LOC: MW.ED 07:31
DX: R11.2 Nausea with vomiting, unspecified (principal); R19.7 Diarrhea, unspecified; M10.9 Gout, unspecified; E78.00 Pure hypercholesterolemia, unspecified; J45.909 Unspecified asthma, uncomplicated; I12.9 Hypertensive chronic kidney disease with stage 1 through stage 4 chronic kidney disease, or unspecified chronic kidney disease; N18.9 Chronic kidney disease, unspecified; Z90.49 Acquired absence of other specified parts of digestive tract; Z88.1 Allergy status to other antibiotic agents; Z88.8 Allergy status to other drugs, medicaments and biological substances; Z88.5 Allergy status to narcotic agent; Z88.0 Allergy status to penicillin; Z79.899 Other long term (current) drug therapy; Z79.82 Long term (current) use of aspirin; Z20.828 Contact with and (suspected) exposure to other viral communicable diseases
CPT/HCPCS: 36415; 80053; 81001; 83690; 85025; 96361; 96374; 99284; J2405; J7030; U0002; 99283

== ENCOUNTER 2021-02-23 01:49 | Emergency (ER) | payer MEDICARE, OTHER ==
[2021-02-23 02:24] VITALS: PULSE 68
[2021-02-23] MEDS ORDERED: Sodium Chloride 0.9% 1,000 ML IV ONE (02:55)
[2021-02-23] MEDS ORDERED: Ondansetron 4 MG/2 ML SDV IVPUSH ONE (02:55)
[2021-02-23] MEDS ORDERED: Sodium Chloride 0.9% 2.5 ML Syringe FLUSH PRN (02:55)
[2021-02-23] MEDS ORDERED: Sodium Chloride 0.9% 10 ML Syringe FLUSH PRN (02:55)
[2021-02-23 03:38] LABS: CARBON DIOXIDE,CO2 27.8 mmol/L (21.0-32.0); POTASSIUM,K 4.2 mmol/L (3.5-5.1)
[2021-02-23] MEDS ORDERED: cefTRIAXone 1 GM in Premix Bag 1 BAG IV ONE (04:51)
--- NOTE | 2021-02-23 05:00 | EDM.PDOC ---
ED HPI GENERAL MEDICAL PROBLEM - General Chief Complaint: Genitourinary Problem Stated Complaint: UNABLE TO URINATE ALL DAY Time Seen by Provider: 02/23/21 02:54 - History of Present Illness INITIAL COMMENTS - FREE TEXT/NARRATIVE: HISTORY AND PHYSICAL: History of present illness: Is an 86-year-old female with a history significant for urinary obstruction in the past requiring to see a urologist in [facility] in December secondary to urinary obstruction post knee surgery presents ER today secondary to no urinary output for approximately 17 hours today. Patient has any fevers, shakes, chills, nausea, vomiting, diarrhea, dysuria, frequency, urgency. Patient reports that she does not feel that she has any suprapubic fullness or discomfort. Patient denies abdominal pain. Review of systems: As per history of present illness and below otherwise all systems reviewed and negative. Past medical history: As per history of present illness and as reviewed below otherwise noncontributory. Surgical history: As per history of present illness and as reviewed below otherwise noncontributory. Social history: No reported history of drug abuse. Family history: As per history of present illness and as reviewed below otherwise noncontributory. Physical exam: This patient was seen and evaluated during the 2019 SARS-CoV-2 novel coronavirus pandemic period. Community viral transmission is ongoing at time of this [facility] nter and the emergency department is operating under pandemic response procedures. Constitutional: Patient is oriented to person, place, and time. Appears well- developed and well-nourished. No distress. HEENT: Moist mucous membranes Head: Normocephalic and atraumatic Eyes: Right eye exhibits no discharge. Left eye exhibits no discharge. No scleral icterus Neck: Normal range of motion. No tracheal deviation present. Cardiovascular: Normal rate and regular rhythm. Pulmonary: Effort normal, no respiratory distress. Abd: Soft, nondistended, no rebound/guarding, no psoas or obturator signs, no tenderness at Mcberney's point, no Lopez's sign. Pt does not present with an exam that would be consistent with an acute surgical abdomen at this time. Nontender to palpation. Mild suprapubic distention. Musculoskeletal: Normal range of motion Neurologic: Alert and oriented to person, place and time. Skin: Orin, warm and dry. Psychiatric: Normal mood and affect. Behavior is normal. Judgment and thought content normal. Nursing note and vital signs have been reviewed Diagnostics: CBC, CMP within normal limits. Urinalysis consistent with urinary tract infection. Therapeutics: Byrnes catheter placed with 1400 cc of clear urine obtained. Rocephin 1 g IV Byrnes leg bag Assessment and plan: 86-year-old female who presents ER today secondary to urinary obstruction. Patient's labs were all within normal limits with normal BUN and creatinine. Patient does appear to have urinary obstruction as we did get approximately 1400 cc of clear urine from the bag after Byrnes catheter was placed. Patient does have a urinary tract infection. Patient will be given a dose of Rocephin IV and will be given a prescription for Omnicef to take. Patient does have a urologist in [place] that she can follow-up with. Reassessment at the time of disposition demonstrates that the patient is in no acute distress. The patient has remained stable throughout the entire ED visit and is without objective evidence for acute process requiring urgent intervention or hospitalization. The patient is stable for discharge, counseling is provided as documented above, discussed symptomatic treatment and specific conditions for return. I have spoken with the patient/caregiver and discussed todays findings, in addition to providing specific details for the plan of care. Questions are answered and there is agreement with the plan. Definitive disposition and diagnosis as appropriate pending reevaluation and review of above. - Related Data Allergies Allergy/AdvReac Type Severity Reaction Status Date / Time ciprofloxacin [From Cipro] Allergy Joint Pain Verified 02/23/21 02:21 clonidine Allergy Tachycardia Verified 02/23/21 02:21 codeine Allergy Other Verified 02/23/21 02:21 hydrocodone Allergy Itching Verified 02/23/21 02:21 levofloxacin [From Levaquin] Allergy Joint Pain Verified 02/23/21 02:21 nitrofurantoin Allergy Renal Verified 02/23/21 02:21 [From Macrodantin] Insufficiency Penicillins Allergy Rash Verified 02/23/21 02:21 Home Meds: Home Meds Verapamil HCl [Verapamil ER] 180 mg PO DAILY 05/10/14 [History] Isosorbide Mononitrate [Imdur] 60 mg PO DAILY #30 tab.er 02/01/16 [Rx] Lisinopril 20 mg PO DAILY 02/01/16 [History] [place]-3 Fatty Acids [Fish Oil] 1,000 mg PO DAILY 11/04/16 [History] carvediloL [Carvedilol] 3.125 mg PO BID 11/04/16 [History] Pregabalin 25 mg PO BID@08,12 02/17/19 [History] Albuterol Sulfate [Albuterol Sulfate Hfa] 8.5 gm IH Q4H PRN #1 hfa.aer.ad 02/18/19 [Rx] Oqfza-T-Topppetfevgqj [Beano] 150 unit PO ASDIRECTED 02/16/20 [History] Aspirin [Aspirin EC] 81 mg PO DAILY 02/16/20 [History] Cholecalciferol (Vitamin D3) [Vitamin D3] 1,000 unit PO DAILY 02/16/20 [History] Docusate Sodium [DOK] 100 mg PO DAILY 02/16/20 [History] Morphine [MS Contin] 15 mg PO Q12HR PRN 02/16/20 [History] Ondansetron [Zofran ODT] 4 mg PO Q6H PRN 5 Days #12 tab.dis 02/16/20 [Rx] allopurinoL [Zyloprim] 100 mg PO DAILY 02/16/20 [History] oxyCODONE HCl/Acetaminophen [Endocet 5-325 Tablet] 1 each PO Q6HR PRN 02/16/20 [History] Past Medical History - Past Health History Medical/Surgical History: Denies Medical/Surgical History HEENT History: Reports: Cataract, Impaired Vision Cardiovascular History: Reports: High Cholesterol, Hypertension Other Cardiovascular History: on lasix for fluid retension Respiratory History: Reports: Asthma, Bronchitis, Recurrent, TB Gastrointestinal History: Reports: Cholelithiasis, GERD Genitourinary History: Reports: Chronic Renal Insuffiency Other Genitourinary History: "kidney problems" 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 Musculoskeletal History: Reports: Fracture, Other (See Below) Other Musculoskeletal History: neck and lumbar fracture, right broken wrist Neurological History: Reports: Headaches, Chronic Psychiatric History: Reports: None Endocrine/Metabolic History: Reports: Other (See Below) Other Endocrine/Metabolic History: borderline diabetes, thyroidectomy Insulin Pump Model and High Lighter: None Hematologic History: Reports: Blood Transfusion(s) Other Hematologic History: blood transfusion x 1 Immunologic History: Reports: None Oncologic (Cancer) History: Reports: None Dermatologic History: Reports: None - Infectious Disease History Infectious Disease History: Reports: None - Past Surgical History Head Surgeries/Procedures: Reports: None HEENT Surgical History: Reports: Cataract Surgery Cardiovascular Surgical History: Reports: None Respiratory Surgical History: Reports: None GI Surgical History: Reports: Cholecystectomy Other GI Surgeries/Procedures: Spleen surgey Female Surgical History: Reports: None, Hysterectomy Endocrine Surgical History: Reports: Thyroidectomy Neurological Surgical History: Reports: Lumbar Spine Musculoskeletal Surgical History: Reports: Other (See Below) Other Musculoskeletal Surgeries/Procedures:: back sx. knee sx Oncologic Surgical History: Reports: None Dermatological Surgical History: Reports: None Social & Family History - Family History Family Medical History: No Pertinent Family History HEENT: Reports: Impaired Vision Musculoskeletal: Reports: Arthritis Oncologic: Reports: Other (See Below) Other Oncologic Family History: stomach - Caffeine Use Caffeine Use: Reports: None Caffeine Use Comment: 1cup/day - Recreational Drug Use Recreational Drug Use: No - Living Situation & Occupation Living situation: Reports: with Family Occupation: Retired ED ROS GENERAL - Review of Systems Review Of Systems: See Below ED EXAM, GENERAL - Physical Exam Exam: See Below Course - Vital Signs Last Recorded V/S: Last Vital Signs Temp 97 F 02/23/21 02:15 Pulse 68 02/23/21 02:15 Resp 18 02/23/21 02:15 BP 145/82 H 02/23/21 02:15 Pulse Ox 96 02/23/21 02:15 - Orders/Labs/Meds Orders: Active Orders 24 hr Category Date Time Status Byrnes Catheter Insertion [Insert Urinary Catheter] [OM. Care 02/23/21 02:45 Ordered PC] Q24H Urinary Catheter Assessment [RC] ASDIRECTED Care 02/23/21 02:37 Active Sodium Chloride 0.9% [Saline Flush] Med 02/23/21 02:55 Active 10 ml FLUSH ASDIRECTED PRN Sodium Chloride 0.9% [Saline Flush] Med 02/23/21 02:55 Active 2.5 ml FLUSH ASDIRECTED PRN cefTRIAXone [Rocephin in Dextrose,Iso-Osm 1 GM/50 ML] 1 Med 02/23/21 04:51 Active gm Premix Bag 1 bag IV ONETIME Saline Lock Insert [OM.PC] Stat Oth 02/23/21 02:55 Ordered Medication Orders Ceftriaxone Sodium/Dextrose 1 (gm/ Premix) 50 mls @ 100 mls/hr IV ONETIME ONE Stop: 02/23/21 05:20 Sodium Chloride (Sodium Chloride 0.9% 10 Ml Syringe) 10 ml FLUSH ASDIRECTED PRN PRN Reason: Keep Vein Open Sodium Chloride (Sodium Chloride 0.9% 2.5 Ml Syringe) 2.5 ml FLUSH ASDIRECTED PRN PRN Reason: Keep Vein Open Labs: Laboratory Tests 02/23/21 02/23/21 02/23/21 Range/Units 03:10 03:10 03:25 WBC 9.23 (4.0-11.0) K/uL RBC 3.45 L (4.30-5.90) M/uL Hgb 10.0 L (12.0-16.0) g/dL Hct 30.1 L (36.0-46.0) % MCV 87.2 (80.0-98.0) fL MCH 29.0 (27.0-32.0) pg MCHC 33.2 (31.0-37.0) g/dL RDW Std Deviation 47.2 (28.0-62.0) fl RDW Coeff of Rad 15 (11.0-15.0) % Plt Count 347 (150-400) K/uL MPV 9.00 (7.40-12.00) fL Neut % (Auto) 58.2 (48.0-80.0) % Lymph % (Auto) 24.4 (16.0-40.0) % [place] % (Auto) 13.7 (0.0-15.0) % Eos % (Auto) 3.5 (0.0-7.0) % Baso % (Auto) 0.2 (0.0-1.5) % Neut # (Auto) 5.4 (1.4-5.7) K/uL Lymph # (Auto) 2.3 (0.6-2.4) K/uL [place] # (Auto) 1.3 H (0.0-0.8) K/uL Eos # (Auto) 0.3 (0.0-0.7) K/uL Baso # (Auto) 0.0 (0.0-0.1) K/uL Nucleated RBC % 0.0 /100WBC Nucleated RBCs # 0 K/uL Sodium 129 L (136-145) mmol/L Potassium 4.2 (3.5-5.1) mmol/L Chloride 94 L (98-107) mmol/L Carbon Dioxide 27.8 (21.0-32.0) mmol/L BUN 24 H (7.0-18.0) mg/dL Creatinine 1.4 H (0.6-1.0) mg/dL Est Cr Clr Drug Dosing 21.49 mL/min Estimated GFR (MDRD) 35.8 ml/min Glucose 113 H (74-106) mg/dL Calcium 8.1 L (8.5-10.1) mg/dL Total Bilirubin 0.3 (0.2-1.0) mg/dL AST 17 (15-37) IU/L ALT 16 (14-63) IU/L Alkaline Phosphatase 120 H (46-116) U/L Total Protein 7.4 (6.4-8.2) g/dL Albumin 3.0 L (3.4-5.0) g/dL Globulin 4.4 H (2.6-4.0) g/dL Albumin/Globulin Ratio 0.7 L (0.9-1.6) Urine Color YELLOW Urine Appearance SLT CLOUDY Urine pH 5.5 (5.0-8.0) Ur Specific [place] <= 1.005 (1.001-1.035) Urine Protein NEGATIVE (NEGATIVE) mg/dL Urine Glucose (UA) NEGATIVE (NEGATIVE) mg/dL Urine Ketones NEGATIVE (NEGATIVE) mg/dL Urine Occult Blood TRACE-INTACT H (NEGATIVE) Urine Nitrite POSITIVE H (NEGATIVE) Urine Bilirubin NEGATIVE (NEGATIVE) Urine Urobilinogen 0.2 (<2.0) EU/dL Ur Leukocyte Esterase MODERATE H (NEGATIVE) Urine RBC 0-3 (0-2/HPF) Urine WBC 30-40 (0-5/HPF) Ur Epithelial Cells RARE (NONE-FEW) Urine Bacteria 3+ H (NEGATIVE) Meds: Medications Generic Name Dose Route Start Last Admin Trade Name Freq PRN Reason Stop Dose Admin Ceftriaxone Sodium/Dextrose 1 50 mls @ 100 mls/hr 02/23/21 04:51 gm/ Premix IV 02/23/21 05:20 ONETIME ONE Sodium Chloride 10 ml 02/23/21 02:55 Sodium Chloride 0.9% 10 Ml Syringe FLUSH ASDIRECTED PRN Keep Vein Open Sodium Chloride 2.5 ml 02/23/21 02:55 Sodium Chloride 0.9% 2.5 Ml Syringe FLUSH ASDIRECTED PRN Keep Vein Open Discontinued Medications Generic Name Dose Route Start Last Admin Trade Name Fer PRN Reason Stop Dose Admin Sodium Chloride 1,000 mls @ 999 mls/hr 02/23/21 02:55 02/23/21 03:16 Normal Saline IV 02/23/21 03:55 999 mls/hr .Bolus ONE Administration Ondansetron HCl 4 mg 02/23/21 02:55 02/23/21 03:16 Ondansetron 4 Mg/2 Ml Sdv IVPUSH 02/23/21 02:56 4 mg ONETIME ONE Administration Departure - Departure Time of Disposition: 04:59 Disposition: Home, Self-Care 01 Condition: Good Clinical Impression: UTI, Urinary tract infectious disease, Acute urinary obstruction - Discharge Information Instructions: Indwelling Urinary Catheter Care, Adult, Urinary Tract Infection, Adult Referrals: Rupal Chavez MD [Primary Care Provider] - Additional Instructions: Your seen and evaluated in the ER today secondary to acute urinary obstruction as well as ER tract infection. You will be discharged home with a Byrnes catheter and leg bag. You will need to follow-up with your urologist in [place] so they can evaluate you for your urinary obstruction and manage your Byrnes catheter. You were also diagnosed with a urinary tract infection. You have been given a dose of IV Rocephin in the ED and you will be discharged home with prescription for antibiotics. The following information is given to patients seen in the emergency department who are being discharged to home. This information is to outline your options for follow-up care. We provide all patients seen in our emergency department with a follow-up referral. The need for follow-up, as well as the timing and circumstances, are variable depending upon the specifics of your emergency department visit. If you don't have a primary care physician on staff, we will provide you with a referral. We always advise you to contact your personal physician following an emergency department visit to inform them of the circumstance of the visit and for follow-up with them and/or the need for any referrals to a consulting specialist. The emergency department will also refer you to a specialist when appropriate. This referral assures that you have the opportunity for follow-up care with a specialist. All of these measure are taken in an effort to provide you with optimal care, which includes your follow-up. Under all circumstances we always encourage you to contact your private physician who remains a resource for coordinating your care. When calling for follow-up care, please make the office aware that this follow-up is from your recent emergency room visit. If for any reason you are refused follow-up, please contact the [facility] Emergency Department at and asked to speak to the emergency department charge nurse. [facility] - Primary Care [address] [place] [id number] [address] Sepsis Event Note (ED) - Focused Exam Vital Signs: Vital Signs Temp Pulse Resp BP Pulse Ox 02/23/21 02:15 97 F 68 18 145/82 H 96 - My Orders Last 24 Hours: My Active Orders 02/23/21 02:37 Urinary Catheter Assessment [RC] ASDIRECTED 02/23/21 02:45 Byrnes Catheter Insertion [Insert Urinary Catheter] [OM.PC] Q24H 02/23/21 02:55 Sodium Chloride 0.9% [Saline Flush] 10 ml FLUSH ASDIRECTED PRN Sodium Chloride 0.9% [Saline Flush] 2.5 ml FLUSH ASDIRECTED PRN Saline Lock Insert [OM.PC] Stat 02/23/21 04:51 cefTRIAXone [Rocephin in Dextrose,Iso-Osm 1 GM/50 ML] 1 gm Premix Bag 1 bag IV ONETIME - Assessment/Plan Last 24 Hours: My Active Orders 02/23/21 02:37 Urinary Catheter Assessment [RC] ASDIRECTED 02/23/21 02:45 Byrnes Catheter Insertion [Insert Urinary Catheter] [OM.PC] Q24H 02/23/21 02:55 Sodium Chloride 0.9% [Saline Flush] 10 ml FLUSH ASDIRECTED PRN Sodium Chloride 0.9% [Saline Flush] 2.5 ml FLUSH ASDIRECTED PRN Saline Lock Insert [OM.PC] Stat 02/23/21 04:51 cefTRIAXone [Rocephin in Dextrose,Iso-Osm 1 GM/50 ML] 1 gm Premix Bag 1 bag IV ONETIME
[2021-02-23 05:47] VITALS: BP 140/78
== END 2021-02-23 05:25 | disposition home or self-care (01) ==
LOC: MW.ED 01:49
DX: N39.0 Urinary tract infection, site not specified (principal); N13.9 Obstructive and reflux uropathy, unspecified; I12.9 Hypertensive chronic kidney disease with stage 1 through stage 4 chronic kidney disease, or unspecified chronic kidney disease; N18.9 Chronic kidney disease, unspecified; J45.909 Unspecified asthma, uncomplicated; Z88.1 Allergy status to other antibiotic agents; Z88.5 Allergy status to narcotic agent; Z88.0 Allergy status to penicillin; Z88.8 Allergy status to other drugs, medicaments and biological substances; Z79.82 Long term (current) use of aspirin; Z79.899 Other long term (current) drug therapy
CPT/HCPCS: 36415; 51702; 80053; 81001; 85025; 96365; 96375; 99283; J0696; J2405; J7030

== ENCOUNTER 2022-01-03 22:18 | Emergency (ER) | payer MEDICARE, OTHER ==
[2022-01-03] MEDS: Sodium Chloride 0.9% 500 ML IV ONE (23:24)
[2022-01-03 23:52] LABS: CARBON DIOXIDE,CO2 33.3 mmol/L (21.0-32.0); POTASSIUM,K 3.8 mmol/L (3.5-5.1)
[2022-01-04] MEDS: Adenosine 6 MG/2 ML SDV IVPUSH ONE ×2 (01:44)
[2022-01-04] MEDS: Metoprolol Tartrate 5 MG/5 ML SDV IVPUSH ONE ×2 (02:13→03:14)
[2022-01-04] MEDS: Acetaminophen/oxyCODONE 325-5 MG Tab PO ONE (04:46)
[2022-01-04 06:07] VITALS: BP 194/89; PULSE 71
== END 2022-01-04 05:54 ==
LOC: MW.ED 22:18
DX: I47.1 Supraventricular tachycardia (principal); R77.8 Other specified abnormalities of plasma proteins; E78.00 Pure hypercholesterolemia, unspecified; I10 Essential (primary) hypertension; K21.9 Gastro-esophageal reflux disease without esophagitis; Z88.1 Allergy status to other antibiotic agents; Z88.0 Allergy status to penicillin; Z88.5 Allergy status to narcotic agent; Z79.82 Long term (current) use of aspirin; Z20.822 Contact with and (suspected) exposure to COVID-19
CPT/HCPCS: 36415; 71045; 80053; 81001; 82947; 83605; 83735; 84484; 85025; 87040; 96374; 96375; 96376; 99285; A9270; J0153; J3490; J7030; U0002; 93005